=== PATIENT | male | born 1965 | race African-American/Black ===

== ENCOUNTER 2016-07-26 10:57 | Inpatient (IN) | payer OTHER ==
[2016-07-26 11:54] VITALS: BMI 21.9
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
[2016-07-26] MEDS ORDERED: P-EPHED 60MG/TRIPROLIDI 2.5MG TABLET PO PRN (14:06)
[2016-07-26] MEDS ORDERED: chlordiazePOXIDE HCL 25 MG CAPSULE PO PRN (14:06)
[2016-07-26] MEDS ORDERED: guaiFENesin/D-METHORPHAN HB 10 ML UNIT-DOSE CUPS PO PRN (14:06)
[2016-07-26] MEDS ORDERED: MAGNESIUM HYDROX 2400MG/30ML ORAL SUSPENSION 30 ML CUP PO PRN (14:06)
[2016-07-26] MEDS ORDERED: IBUPROFEN 400 MG TABLET (FP) PO PRN (14:06)
[2016-07-26] MEDS ORDERED: MENTHOL/PHENOL 1 EACH UD MM PRN (14:06)
[2016-07-26] MEDS ORDERED: MAGNESIUM CITRATE 300 ML BOTTLE PO PRN (14:06)
[2016-07-26] MEDS ORDERED: LOPERAMIDE HCL 2 MG CAPSULE PO PRN (14:06)
[2016-07-26] MEDS ORDERED: ACETAMINOPHEN 325 MG TABLET (FP) PO PRN (14:06)
[2016-07-26] MEDS ORDERED: MAG HYDROX/AL HYDROX/SIMETH 30 ML UNIT-DOSE CUP PO PRN (14:06)
[2016-07-26] MEDS ORDERED: diphenhydrAMINE HCL 50 MG CAPSULE PO PRN (14:06)
[2016-07-26] MEDS ORDERED: hydrOXYzine PAMOATE 25 MG CAPSULE (FP) PO PRN (14:12)
[2016-07-26] MEDS ORDERED: chlordiazePOXIDE HCL 25 MG CAPSULE PO ONE (14:13)
[2016-07-26] MEDS ORDERED: ALBUTEROL SO4 6.7 GM HFA INHALER IH PRN (14:14)
--- NOTE | 2016-07-26 16:13 | CONSULT ---
[facility] Psychiatric Consult - Data Date of interview: 07/26/16 Admission source: [facility] Identifying data: This is 51 years old male with history of Bipolar disorder intoxicated with: Alcohol, Crack and Nicotine Substance Abuse History: - Smoking Cessation. Smoking history: Current every day smoker. Have you smoked in the past 12 months: Yes. Aproximately how many cigarettes per day: 8. Cigars Per Day: 0. Hx Chewing Tobacco Use: No. Initiated information on smoking cessation: Yes. 'Breaking Loose' booklet given : 07/26/16. - Substance & Tx. History. Hx Alcohol Use: Yes. Hx Substance Use : Yes. Substance Use Type: Alcohol, Cocaine. - Substances Abused. Alcohol. Route: Oral. Frequency: Daily. Amount used: 20 BEERS. Age of first use: 10. Date of Last Use: 07/25/16. Crack. Route: Smoking. Frequency: Daily. Amount used: $300. Age of first use: 25. Date of Last Use: 07/25/16 Medical History: Asthma, PPD+ Hisotyr, GERD, Anemia history Psychiatric History: Patient reports to carry Bipolar disorder, reports taking prior to admission: Seroquel 100mg po qhs. Depakote 250mg po bid Physical/Sexual Abuse/Trauma History: Denies Additional Comment: Seroquel 100mg po qhs. Depakote 250mg po bid Mental Status Exam - Mental Status Exam Alert and Oriented to: Person Cognitive Function: Fair Patient Appearance: Unkempt Mood: Sad Affect: Flat Patient Behavior: Sedated Speech Pattern: Delayed Voice Loudness: Moderately Soft/Quiet Thought Process: Circumstantial Thought Disorder: Being Controlled Hallucinations: Denies Suicidal Ideation: Denies Homicidal Ideation: Denies Insight/Judgement: Fair Sleep: Difficulty falling asleep Appetite: Weight loss Muscle strength/Tone: Mild Hypotonicity Gait/Station: Shuffling Additional Comments: Seroquel 100mg po qhs. Depakote 250mg po bid Psychiatric Findings - Problem List ([place] 1, 2,3) (1) Alcohol dependence with uncomplicated withdrawal Current Visit: No Status: Acute (2) Cocaine dependence Current Visit: No Status: Acute (3) Nicotine dependence Current Visit: No Status: Acute Qualifiers: Nicotine product type: cigarettes Substance use status: uncomplicated Qualified Code(s): F17.210 - Nicotine dependence, cigarettes, uncomplicated (4) Substance induced mood disorder Current Visit: No Status: Acute (5) Anxiety disorder Current Visit: No Status: Chronic Qualifiers: Anxiety disorder type: unspecified anxiety disorder Qualified Code(s ): F41.9 - Anxiety disorder, unspecified (6) Bipolar disorder Current Visit: No Status: Chronic Comment: Historical diagnosis. - Initial Treatment Plan Initial Treatment Plan: Seroquel 100mg po qhs. Depakote 250mg po bid
[2016-07-26 17:28] LABS: URINE APPEARANCE CLEAR; URINE BILIRUBIN NEGATIVE (NEGATIVE); URINE BLOOD NEGATIVE (NEGATIVE); URINE COLOR LTYELLOW; URINE GLUCOSE (UA) NEGATIVE (NEGATIVE); URINE KETONE NEGATIVE (NEGATIVE); URINE LEUK ESTERASE 1+ (NEGATIVE); URINE NITRITE NEGATIVE (NEGATIVE); URINE PROTEIN NEGATIVE (NEGATIVE); URINE UROBILINOGEN NEGATIVE E.U./dl (0.2-1.0)
[2016-07-26] MEDS: chlordiazePOXIDE HCL 25 MG CAPSULE PO SCH ×2 (17:37→22:29)
[2016-07-26 17:44] LABS: URINE BACTERIA FEW /hpf (NONE SEEN); URINE MUCUS RARE; URINE RBC <1 /hpf (0-3); URINE WBC 19 /hpf (3-5)
[2016-07-26] MEDS: DIVALPROEX SODIUM 250 MG TABLET E.C. (FP) PO SCH (22:29)
[2016-07-26] MEDS: THIAMINE HCL 100 MG TABLET (FP) PO SCH (22:29)
[2016-07-26] MEDS: QUEtiapine FUMARATE 100 MG TABLET (FP) PO SCH (22:29)
[2016-07-27] MEDS: chlordiazePOXIDE HCL 25 MG CAPSULE PO SCH ×4 (06:00→22:48)
[2016-07-27] MEDS ORDERED: ASPIRIN 81 MG CHEWABLE TABLETS PO SCH (10:00)
[2016-07-27] MEDS ORDERED: PRENATAL VITAMINS W/ FOLIC ACID TABLET (FP) PO SCH (10:00)
[2016-07-27 10:39] LABS: ALBUMIN 3.8 g/dl (3.4-5.0); ALK PHOS 70 U/L (45-117); ANION GAP 6 (8-16); BILIRUBIN,TOTAL 0.4 mg/dL (0.2-1.0); CALCIUM 8.7 mg/dL (8.5-10.1); CO2 30 mmol/L (21-32); CREATININE 0.9 mg/dL (0.7-1.3); GLUCOSE,RANDOM 59 mg/dL (74-106); SGOT/AST 48 U/L (15-37); SGPT/ALT 34 U/L (12-78); TOT PROT 7.5 g/dl (6.4-8.2)
[2016-07-27] MEDS: DIVALPROEX SODIUM 250 MG TABLET E.C. (FP) PO SCH ×2 (10:58→22:48)
[2016-07-27 11:08] LABS: MCH 23.2 pg (25.7-33.7); MCHC 31.5 g/dl (32.0-35.9); MEAN CELL VOLUME 73.5 fl (80-96); MEAN PLT VOLUME 10.2 fl (7.5-11.1); PLATELET COUNT 179 K/MM3 (134-434); RDW 15.4 % (11.9-15.9)
--- NOTE | 2016-07-27 15:18 | PN ---
[facility] CIWA - CIWA Score Nausea/Vomitin-No Nausea/No Vomiting Muscle Tremors: 3 Anxiety: 4-Mod. Anxious/Guarded Agitation: 4-Moderately Restless Paroxysmal Sweats: 3 Orientation: 0-Oriented Tacttile Disturbances: 0-None Auditory Disturbances: 0-None Visual Disturbances: 0-None Headache: 0-None Present CIWA-Ar Total Score: 14 BHS Progress Note (SOAP) Subjective: SWEATING,INTERRUPTED SLEEP,ANXIETY,TREMORS,RESTLESS. Objective: 07/27/16 15:13 Vital Signs - 8 hr 07/27/16 09:45 Temperature 97.0 F L Pulse Rate 95 H Respiratory 20 Rate Blood Pressure 104/76 Laboratory Tests 07/26/16 07/27/16 07/27/16 15:00 06:00 06:00 WBC 5.0 RBC 5.03 Hgb 11.6 L Hct 37.0 MCV 73.5 L MCHC 31.5 L RDW 15.4 Plt Count 179 MPV 10.2 Sodium 143 Potassium 4.2 Chloride 107 Carbon Dioxide 30 Anion Gap 6 L BUN 15 D Creatinine 0.9 Creat Clearance w eGFR > 60 Random Glucose 59 L D Calcium 8.7 Total Bilirubin 0.4 D AST 48 H D ALT 34 D Alkaline Phosphatase 70 D Total Protein 7.5 D Albumin 3.8 D Urine Color Ltyellow Urine Appearance Clear Urine pH 7.0 D Ur Specific [place] 1.020 Urine Protein Negative Urine Glucose (UA) Negative Urine Ketones Negative Urine Blood Negative Urine Nitrite Negative Urine Bilirubin Negative Urine Urobilinogen Negative Ur Leukocyte Esterase 1+ H Urine RBC <1 Urine WBC 19 Ur Epithelial Cells Rare Urine Bacteria Few Urine Mucus Rare Valproic Acid RPR Titer T.pallidum Ab (MHA) 07/27/16 07/27/16 06:00 07:00 WBC RBC Hgb Hct MCV MCHC RDW Plt Count MPV Sodium Potassium Chloride Carbon Dioxide Anion Gap BUN Creatinine Creat Clearance w eGFR Random Glucose Calcium Total Bilirubin AST ALT Alkaline Phosphatase Total Protein Albumin Urine Color Urine Appearance Urine pH Ur Specific [place] Urine Protein Urine Glucose (UA) Urine Ketones Urine Blood Urine Nitrite Urine Bilirubin Urine Urobilinogen Ur Leukocyte Esterase Urine RBC Urine WBC Ur Epithelial Cells Urine Bacteria Urine Mucus Valproic Acid 3.266 L RPR Titer Reactive 1:1 H T.pallidum Ab (MHA) Previously reactive LABS NOTED Assessment: 07/27/16 15:15 WITHDRAWAL SX. Plan: CONTINUE DETOX
[2016-07-27 22:23] VITALS: BP 114/72; PULSE 83; TEMP 98.5
[2016-07-27] MEDS: THIAMINE HCL 100 MG TABLET (FP) PO SCH (22:48)
[2016-07-27] MEDS: QUEtiapine FUMARATE 100 MG TABLET (FP) PO SCH (22:48)
--- NOTE | 2016-07-27 22:57 | DS ---
[id number] Present History: Alcohol Dependence Additional Comments: received nurse call patient wants to leave the unit observed patient pacing appears anxious in room, alert oriented x 3, steady gait, speech clearly, patient states that he wants to leave the facility "I have my own medications" patient insists to "go home" without apparent reason. strong recommend follow up with community self help groups Pertinent Past History: asthma bipolar ii gerd nicotine - Physical Exam Results Vital Signs: Vital Signs Temperature 98.5 F 07/27/16 22:23 Pulse Rate 83 07/27/16 22:23 Respiratory Rate 18 07/27/16 22:23 Blood Pressure 114/72 07/27/16 22:23 O2 Sat by Pulse Oximetry (%) Pertinent Admission Physical Exam Findings: withdrawal sx Laboratory Last Values WBC 5.0 K/mm3 (4.0-10.0) 07/27/16 06:00 RBC 5.03 M/mm3 (4.00-5.60) 07/27/16 06:00 Hgb 11.6 GM/dL (11.7-16.9) L 07/27/16 06:00 Hct 37.0 % (35.4-49) 07/27/16 06:00 MCV 73.5 fl (80-96) L 07/27/16 06:00 MCHC 31.5 g/dl (32.0-35.9) L 07/27/16 06:00 RDW 15.4 % (11.9-15.9) 07/27/16 06:00 Plt Count 179 K/MM3 (134-434) 07/27/16 06:00 MPV 10.2 fl (7.5-11.1) 07/27/16 06:00 Sodium 143 mmol/L (136-145) 07/27/16 06:00 Potassium 4.2 mmol/L (3.5-5.1) 07/27/16 06:00 Chloride 107 mmol/L (98-107) 07/27/16 06:00 Carbon Dioxide 30 mmol/L (21-32) 07/27/16 06:00 Anion Gap 6 (8-16) L 07/27/16 06:00 BUN 15 mg/dL (7-18) D 07/27/16 06:00 Creatinine 0.9 mg/dL (0.7-1.3) 07/27/16 06:00 Creat Clearance w eGFR > 60 (>60) 07/27/16 06:00 Random Glucose 59 mg/dL (74-106) L D 07/27/16 06:00 Calcium 8.7 mg/dL (8.5-10.1) 07/27/16 06:00 Total Bilirubin 0.4 mg/dL (0.2-1.0) D 07/27/16 06:00 AST 48 U/L (15-37) H D 07/27/16 06:00 ALT 34 U/L (12-78) D 07/27/16 06:00 Alkaline Phosphatase 70 U/L (45-117) D 07/27/16 06:00 Total Protein 7.5 g/dl (6.4-8.2) D 07/27/16 06:00 Albumin 3.8 g/dl (3.4-5.0) D 07/27/16 06:00 Urine Color Ltyellow 07/26/16 15:00 Urine Appearance Clear 07/26/16 15:00 Urine pH 7.0 (5.0-8.0) D 07/26/16 15:00 Ur Specific [place] 1.020 (1.001-1.035) 07/26/16 15:00 Urine Protein Negative (NEGATIVE) 07/26/16 15:00 Urine Glucose (UA) Negative (NEGATIVE) 07/26/16 15:00 Urine Ketones Negative (NEGATIVE) 07/26/16 15:00 Urine Blood Negative (NEGATIVE) 07/26/16 15:00 Urine Nitrite Negative (NEGATIVE) 07/26/16 15:00 Urine Bilirubin Negative (NEGATIVE) 07/26/16 15:00 Urine Urobilinogen Negative E.U./dl (0.2-1.0) 07/26/16 15:00 Ur Leukocyte Esterase 1+ (NEGATIVE) H 07/26/16 15:00 Urine RBC <1 /hpf (0-3) 07/26/16 15:00 Urine WBC 19 /hpf (3-5) 07/26/16 15:00 Ur Epithelial Cells Rare /hpf (FEW) 07/26/16 15:00 Urine Bacteria Few /hpf (NONE SEEN) 07/26/16 15:00 Urine Mucus Rare 07/26/16 15:00 Valproic Acid 3.266 ug/ml (50-100) L 07/27/16 07:00 RPR Titer Reactive 1:1 (NONREACTIVE) H 07/27/16 06:00 T.pallidum Ab (MHA) Previously reactive (NONREACTIVE) 07/27/16 06:00 lab noted - Treatment Hospital Course: Detox Protocol Followed, Responded well - Medication Discharge Medications: Ambulatory Orders Albuterol Sulfate Inhaler - [Ventolin Hfa Inhaler -] 2 inh PO Q4H PRN 05/17/16 Aspirin [ASA -] 81 mg PO DAILY 05/17/16 Divalproex [Depakote -] 250 mg PO BID #60 tablet.ec 05/21/16 Quetiapine Fumarate [Seroquel] 100 tab PO HS #30 tablet 05/21/16 Trazodone HCl 50 mg PO HS #30 tablet 05/21/16 Divalproex [Depakote -] 250 mg PO BID #60 tablet.ec 07/26/16 Quetiapine Fumarate [Seroquel] 100 mg PO HS #30 tablet 07/26/16 - Diagnosis (1) Asthma Status: Chronic Qualifiers: Asthma severity: mild persistent Asthma complication type: uncomplicated Qualified Code(s): J45.30 - Mild persistent asthma, uncomplicated (2) Positive PPD Status: Resolved (3) Alcohol dependence with uncomplicated withdrawal Status: Acute (4) Nicotine dependence Status: Acute Qualifiers: Nicotine product type: cigarettes Substance use status: uncomplicated Qualified Code(s): F17.210 - Nicotine dependence, cigarettes, uncomplicated (5) Acid reflux Status: Chronic Qualifiers: Esophagitis presence: without esophagitis Qualified Code(s): K21.9 - Gastro-esophageal reflux disease without esophagitis (6) Bipolar II disorder Status: Suspected - AMA Did Patient Leave Against Medical Advice: Yes
[2016-07-28] MEDS ORDERED: chlordiazePOXIDE 5 MG CAPSULE PO SCH (17:00)
[2016-07-29] MEDS ORDERED: chlordiazePOXIDE HCL 10 MG CAPSULE PO SCH (17:00)
--- NOTE | 2016-08-01 09:39 | EKG ---
Test Reason : Blood Pressure : / mmHG Vent. Rate : 061 BPM Atrial Rate : 061 BPM P-R Int : 114 ms QRS Dur : 100 ms QT Int : 444 ms P-R-T Axes : 039 045 045 degrees QTc Int : 446 ms NORMAL SINUS RHYTHM NORMAL ECG NO PREVIOUS ECGS AVAILABLE Confirmed by JAMARI PATEL, ROBBI ([id number]) on 08/01/2016 9:39:23 AM Referred By: Confirmed By:ROBBI KAUFFMAN MD
== END 2016-07-27 23:00 | disposition left against medical advice (07) | DRG 770 ==
LOC: YASAS 10:57 → Y3N 14:25
PROVIDERS: ADMIT Internal Medicine; ATTEND Internal Medicine
PROC: HZ2ZZZZ Detoxification Services for Substance Abuse Treatment (ICD-10-PCS; principal; 2016-07-26)
DX: F10.230 Alcohol dependence with withdrawal, uncomplicated (principal); F17.210 Nicotine dependence, cigarettes, uncomplicated; F31.81 Bipolar II disorder; F19.24 Other psychoactive substance dependence with psychoactive substance-induced mood disorder; F41.9 Anxiety disorder, unspecified; J45.30 Mild persistent asthma, uncomplicated; R76.11 Nonspecific reaction to tuberculin skin test without active tuberculosis; D64.9 Anemia, unspecified; K21.9 Gastro-esophageal reflux disease without esophagitis; Z86.79 Personal history of other diseases of the circulatory system; Z87.438 Personal history of other diseases of male genital organs
CPT/HCPCS: 36415; 80053; 80164; 81003; 81015; 85027; 86593; 86780; 93005; 93010

== ENCOUNTER 2017-07-08 08:47 | Inpatient (IN) | payer OTHER ==
[2017-07-08 09:31] VITALS: BMI 22.3
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
[2017-07-08] MEDS ORDERED: MAG HYDROX/AL HYDROX/SIMETH 30 ML UNIT-DOSE CUP PO PRN (13:11)
[2017-07-08] MEDS ORDERED: MENTHOL/PHENOL 1 EACH UD MM PRN (13:11)
[2017-07-08] MEDS ORDERED: IBUPROFEN 400 MG TABLET (FP) PO PRN (13:11)
[2017-07-08] MEDS ORDERED: chlordiazePOXIDE HCL 25 MG CAPSULE PO PRN (13:11)
[2017-07-08] MEDS ORDERED: ACETAMINOPHEN 325 MG TABLET (FP) PO PRN (13:11)
[2017-07-08] MEDS ORDERED: LOPERAMIDE HCL 2 MG CAPSULE PO PRN (13:11)
[2017-07-08] MEDS ORDERED: MAGNESIUM CITRATE 300 ML BOTTLE PO PRN (13:11)
[2017-07-08] MEDS ORDERED: P-EPHED 60MG/TRIPROLIDI 2.5MG TABLET PO PRN (13:11)
[2017-07-08] MEDS ORDERED: guaiFENesin/D-METHORPHAN HB 10 ML UNIT-DOSE CUPS PO PRN (13:11)
[2017-07-08] MEDS ORDERED: NICOTINE POLACRILEX 4 MG GUM BUC PRN (13:11)
[2017-07-08] MEDS ORDERED: hydrOXYzine PAMOATE 50 MG CAPSULE (FP) PO PRN (13:11)
[2017-07-08] MEDS ORDERED: MAGNESIUM HYDROX 2400MG/30ML ORAL SUSPENSION 30 ML CUP PO PRN (13:11)
[2017-07-08] MEDS ORDERED: ALBUTEROL SO4 18 GM HFA INHALER IH PRN (13:13)
[2017-07-08] MEDS ORDERED: chlordiazePOXIDE HCL 25 MG CAPSULE PO ONE (13:46)
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
[2017-07-08] MEDS: chlordiazePOXIDE HCL 25 MG CAPSULE PO SCH ×2 (17:01→22:14)
[2017-07-08] MEDS: THIAMINE HCL 100 MG TABLET (FP) PO SCH (22:14)
[2017-07-08] MEDS: traZODone HCL 50 MG TABLET (FP) PO SCH (22:14)
[2017-07-08] MEDS: DIVALPROEX SODIUM 500 MG TABLET E.C. PO SCH (22:14)
[2017-07-08 23:25] LABS: URINE APPEARANCE CLEAR; URINE BILIRUBIN NEGATIVE (NEGATIVE); URINE BLOOD NEGATIVE (NEGATIVE); URINE COLOR YELLOW; URINE GLUCOSE (UA) NEGATIVE (NEGATIVE); URINE KETONE NEGATIVE (NEGATIVE); URINE LEUK ESTERASE NEGATIVE (NEGATIVE); URINE NITRITE NEGATIVE (NEGATIVE); URINE PROTEIN NEGATIVE (NEGATIVE); URINE UROBILINOGEN NEGATIVE mg/dL (0.2-1.0)
--- NOTE | 2017-07-09 01:55 | EKG ---
Test Reason : Blood Pressure : / mmHG Vent. Rate : 056 BPM Atrial Rate : 056 BPM P-R Int : 124 ms QRS Dur : 098 ms QT Int : 426 ms P-R-T Axes : 063 040 044 degrees QTc Int : 411 ms SINUS BRADYCARDIA OTHERWISE NORMAL ECG WHEN COMPARED WITH ECG OF 26-JUL-2016 15:22, NO SIGNIFICANT CHANGE WAS FOUND Confirmed by SUDHEER KELLOGG MD ([id number]) on 07/09/2017 1:54:52 AM Referred By: Confirmed By:SUDHEER KELLOGG MD
[2017-07-09] MEDS: chlordiazePOXIDE HCL 25 MG CAPSULE PO SCH ×4 (06:42→22:05)
[2017-07-09 10:09] LABS: MCH 22.7 pg (25.7-33.7); MEAN CELL VOLUME 73.3 fl (80-96); MEAN PLT VOLUME 9.8 fl (7.5-11.1); PLATELET COUNT 202 K/MM3 (134-434); RDW 14.8 % (11.9-15.9); WHITE BLOOD COUNT 4.8 K/mm3 (4.0-10.0)
[2017-07-09 10:38] LABS: URINE LEUK ESTERASE Negative (NEGATIVE)
[2017-07-09] MEDS: NICOTINE 14 MG/24 HOURS TOPICAL PATCH TD SCH (10:48)
[2017-07-09] MEDS: DIVALPROEX SODIUM 500 MG TABLET E.C. PO SCH ×2 (10:48→22:05)
[2017-07-09] MEDS: ASPIRIN 81 MG CHEWABLE TABLETS PO SCH (10:48)
[2017-07-09] MEDS: PRENATAL VITAMINS W/ FOLIC ACID TABLET (FP) PO SCH (10:48)
[2017-07-09 10:56] LABS: ALBUMIN 3.3 g/dl (3.4-5.0); ALK PHOS 71 U/L (45-117); ANION GAP 8 (8-16); BILIRUBIN,TOTAL 0.4 mg/dL (0.2-1.0); CALCIUM 8.4 mg/dL (8.5-10.1); CO2 27 mmol/L (21-32); GLUCOSE,RANDOM 94 mg/dL (74-106); SGOT/AST 48 U/L (15-37); SGPT/ALT 36 U/L (12-78)
--- NOTE | 2017-07-09 12:16 | PN ---
[facility] CIWA - CIWA Score Nausea/Vomitin-No Nausea/No Vomiting Muscle Tremors: 4-Moderate,w/Arms Extend Anxiety: 4-Mod. Anxious/Guarded Agitation: 4-Moderately Restless Paroxysmal Sweats: 1-Minimal Palms Moist Orientation: 0-Oriented Tacttile Disturbances: 3-Moderate Itch/Numb/Burn Auditory Disturbances: 0-None Visual Disturbances: 0-None Headache: 0-None Present CIWA-Ar Total Score: 16 S Progress Note (SOAP) Subjective: PT IN BED COMFORTABLE. PT REPORTEDLY REFUSED LIBRIUM AT 10 AM MEDS PER NURSE ERON. ALERT O X 3. Objective: 07/09/17 12:15 Vital Signs Temperature 97.0 F L 07/09/17 09:03 Pulse Rate 67 07/09/17 09:03 Respiratory Rate 18 07/09/17 09:03 Blood Pressure 104/70 07/09/17 09:03 O2 Sat by Pulse Oximetry (%) Laboratory Last Values WBC 4.8 K/mm3 (4.0-10.0) 07/09/17 05:50 RBC 5.24 M/mm3 (4.00-5.60) 07/09/17 05:50 Hgb 11.9 GM/dL (11.7-16.9) 07/09/17 05:50 Hct 38.4 % (35.4-49) 07/09/17 05:50 MCV 73.3 fl (80-96) L 07/09/17 05:50 MCH 22.7 pg (25.7-33.7) L 07/09/17 05:50 MCHC 31.0 g/dl (32.0-35.9) L 07/09/17 05:50 RDW 14.8 % (11.9-15.9) 07/09/17 05:50 Plt Count 202 K/MM3 (134-434) 07/09/17 05:50 MPV 9.8 fl (7.5-11.1) 07/09/17 05:50 Sodium 141 mmol/L (136-145) 07/09/17 05:50 Potassium 4.1 mmol/L (3.5-5.1) 07/09/17 05:50 Chloride 106 mmol/L (98-107) 07/09/17 05:50 Carbon Dioxide 27 mmol/L (21-32) 07/09/17 05:50 Anion Gap 8 (8-16) 07/09/17 05:50 BUN 9 mg/dL (7-18) D 07/09/17 05:50 Creatinine 1.0 mg/dL (0.7-1.3) 07/09/17 05:50 Creat Clearance w eGFR > 60 (>60) 07/09/17 05:50 Random Glucose 94 mg/dL (74-106) D 07/09/17 05:50 Calcium 8.4 mg/dL (8.5-10.1) L 07/09/17 05:50 Total Bilirubin 0.4 mg/dL (0.2-1.0) 07/09/17 05:50 AST 48 U/L (15-37) H 07/09/17 05:50 ALT 36 U/L (12-78) 07/09/17 05:50 Alkaline Phosphatase 71 U/L (45-117) 07/09/17 05:50 Total Protein 7.0 g/dl (6.4-8.2) 07/09/17 05:50 Albumin 3.3 g/dl (3.4-5.0) L 07/09/17 05:50 Urine Color Yellow 07/08/17 23:10 Urine Appearance Clear 07/08/17 23:10 Urine pH 6.0 (5.0-8.0) 07/08/17 23:10 Ur Specific [place] 1.017 (1.001-1.035) 07/08/17 23:10 Urine Protein Negative (NEGATIVE) 07/08/17 23:10 Urine Glucose (UA) Negative (NEGATIVE) 07/08/17 23:10 Urine Ketones Negative (NEGATIVE) 07/08/17 23:10 Urine Blood Negative (NEGATIVE) 07/08/17 23:10 Urine Nitrite Negative (NEGATIVE) 07/08/17 23:10 Urine Bilirubin Negative (NEGATIVE) 07/08/17 23:10 Urine Urobilinogen Negative mg/dL (0.2-1.0) 07/08/17 23:10 Ur Leukocyte Esterase Negative (NEGATIVE) 07/08/17 23:10 Valproic Acid < 3.000 ug/ml (50-100) L 07/09/17 06:00 Assessment: 07/09/17 12:16 WITHDRAWAL SX Plan: CONTINUE DETOX MONITOR PT
[2017-07-09] MEDS: traZODone HCL 50 MG TABLET (FP) PO SCH (22:05)
[2017-07-09] MEDS: THIAMINE HCL 100 MG TABLET (FP) PO SCH (22:05)
[2017-07-10] MEDS: chlordiazePOXIDE HCL 25 MG CAPSULE PO SCH ×2 (06:18→10:15)
[2017-07-10] MEDS: NICOTINE 14 MG/24 HOURS TOPICAL PATCH TD SCH (10:14)
[2017-07-10] MEDS: ASPIRIN 81 MG CHEWABLE TABLETS PO SCH (10:14)
[2017-07-10] MEDS: DIVALPROEX SODIUM 500 MG TABLET E.C. PO SCH ×2 (10:14→22:26)
[2017-07-10] MEDS: PRENATAL VITAMINS W/ FOLIC ACID TABLET (FP) PO SCH (10:14)
--- NOTE | 2017-07-10 11:06 | PN ---
[facility] CIWA - CIWA Score Nausea/Vomitin-No Nausea/No Vomiting Muscle Tremors: 2 Anxiety: 4-Mod. Anxious/Guarded Agitation: 4-Moderately Restless Paroxysmal Sweats: 1-Minimal Palms Moist Orientation: 0-Oriented Tacttile Disturbances: 3-Moderate Itch/Numb/Burn Auditory Disturbances: 0-None Visual Disturbances: 0-None Headache: 0-None Present CIWA-Ar Total Score: 14 S Progress Note (SOAP) Subjective: ANXIETY,SWEATS,INTERMITTENT SLEEP Objective: 07/10/17 11:07 Vital Signs - 24 hr 07/09/17 07/09/17 07/10/17 17:15 22:06 00:30 Temperature 97.2 F L 97.4 F L Pulse Rate 81 69 Respiratory 18 18 18 Rate Blood Pressure 103/63 107/63 07/10/17 07/10/17 05:58 13:06 Temperature 97 F L 96.1 F L Pulse Rate 65 69 Respiratory 18 18 Rate Blood Pressure 98/61 105/70 Laboratory Last Values WBC 4.8 K/mm3 (4.0-10.0) 07/09/17 05:50 RBC 5.24 M/mm3 (4.00-5.60) 07/09/17 05:50 Hgb 11.9 GM/dL (11.7-16.9) 07/09/17 05:50 Hct 38.4 % (35.4-49) 07/09/17 05:50 MCV 73.3 fl (80-96) L 07/09/17 05:50 MCH 22.7 pg (25.7-33.7) L 07/09/17 05:50 MCHC 31.0 g/dl (32.0-35.9) L 07/09/17 05:50 RDW 14.8 % (11.9-15.9) 07/09/17 05:50 Plt Count 202 K/MM3 (134-434) 07/09/17 05:50 MPV 9.8 fl (7.5-11.1) 07/09/17 05:50 Sodium 141 mmol/L (136-145) 07/09/17 05:50 Potassium 4.1 mmol/L (3.5-5.1) 07/09/17 05:50 Chloride 106 mmol/L (98-107) 07/09/17 05:50 Carbon Dioxide 27 mmol/L (21-32) 07/09/17 05:50 Anion Gap 8 (8-16) 07/09/17 05:50 BUN 9 mg/dL (7-18) D 07/09/17 05:50 Creatinine 1.0 mg/dL (0.7-1.3) 07/09/17 05:50 Creat Clearance w eGFR > 60 (>60) 07/09/17 05:50 Random Glucose 94 mg/dL (74-106) D 07/09/17 05:50 Calcium 8.4 mg/dL (8.5-10.1) L 07/09/17 05:50 Total Bilirubin 0.4 mg/dL (0.2-1.0) 07/09/17 05:50 AST 48 U/L (15-37) H 07/09/17 05:50 ALT 36 U/L (12-78) 07/09/17 05:50 Alkaline Phosphatase 71 U/L (45-117) 07/09/17 05:50 Total Protein 7.0 g/dl (6.4-8.2) 07/09/17 05:50 Albumin 3.3 g/dl (3.4-5.0) L 07/09/17 05:50 Urine Color Yellow 07/08/17 23:10 Urine Appearance Clear 07/08/17 23:10 Urine pH 6.0 (5.0-8.0) 07/08/17 23:10 Ur Specific [place] 1.017 (1.001-1.035) 07/08/17 23:10 Urine Protein Negative (NEGATIVE) 07/08/17 23:10 Urine Glucose (UA) Negative (NEGATIVE) 07/08/17 23:10 Urine Ketones Negative (NEGATIVE) 07/08/17 23:10 Urine Blood Negative (NEGATIVE) 07/08/17 23:10 Urine Nitrite Negative (NEGATIVE) 07/08/17 23:10 Urine Bilirubin Negative (NEGATIVE) 07/08/17 23:10 Urine Urobilinogen Negative mg/dL (0.2-1.0) 07/08/17 23:10 Ur Leukocyte Esterase Negative (NEGATIVE) 07/08/17 23:10 Valproic Acid < 3.000 ug/ml (50-100) L 07/09/17 06:00 RPR Titer Reactive 1:1 (NONREACTIVE) H 07/09/17 05:50 T.pallidum Ab (MHA) Previously reactive (NONREACTIVE) 07/09/17 05:50 07/10/17 14:31 Assessment: 07/10/17 11:08 WITHDRAWAL SX Plan: CONTINUE DETOX
[2017-07-10] MEDS: chlordiazePOXIDE 5 MG CAPSULE PO SCH ×2 (17:38→22:25)
[2017-07-10] MEDS: THIAMINE HCL 100 MG TABLET (FP) PO SCH (22:25)
[2017-07-10] MEDS: traZODone HCL 50 MG TABLET (FP) PO SCH (22:26)
[2017-07-11] MEDS: chlordiazePOXIDE 5 MG CAPSULE PO SCH ×2 (06:41→10:48)
[2017-07-11] MEDS: NICOTINE 14 MG/24 HOURS TOPICAL PATCH TD SCH (10:46)
[2017-07-11] MEDS: DIVALPROEX SODIUM 500 MG TABLET E.C. PO SCH (10:46)
[2017-07-11] MEDS: ASPIRIN 81 MG CHEWABLE TABLETS PO SCH (10:46)
[2017-07-11] MEDS: PRENATAL VITAMINS W/ FOLIC ACID TABLET (FP) PO SCH (10:46)
--- NOTE | 2017-07-11 15:18 | PN ---
[facility] Progress Note (SOAP) Subjective: Anxious, sweating, reports oversleeping due to librium Objective: 07/11/17 15:14 Last Vital Signs Temp Pulse Resp BP Pulse Ox 97.2 F L 78 18 97/59 07/11/17 10:56 07/11/17 10:56 07/11/17 10:56 07/11/17 10:56 B/P noted: hypotension Laboratory Tests 07/08/17 07/09/17 07/09/17 23:10 05:50 05:50 WBC 4.8 RBC 5.24 Hgb 11.9 Hct 38.4 MCV 73.3 L MCH 22.7 L MCHC 31.0 L RDW 14.8 Plt Count 202 MPV 9.8 Sodium 141 Potassium 4.1 Chloride 106 Carbon Dioxide 27 Anion Gap 8 BUN 9 D Creatinine 1.0 Creat Clearance w eGFR > 60 Random Glucose 94 D Calcium 8.4 L Total Bilirubin 0.4 AST 48 H ALT 36 Alkaline Phosphatase 71 Total Protein 7.0 Albumin 3.3 L Urine Color Yellow Urine Appearance Clear Urine pH 6.0 Ur Specific [place] 1.017 Urine Protein Negative Urine Glucose (UA) Negative Urine Ketones Negative Urine Blood Negative Urine Nitrite Negative Urine Bilirubin Negative Urine Urobilinogen Negative Ur Leukocyte Esterase Negative Valproic Acid RPR Titer T.pallidum Ab (MHA) 07/09/17 07/09/17 05:50 06:00 WBC RBC Hgb Hct MCV MCH MCHC RDW Plt Count MPV Sodium Potassium Chloride Carbon Dioxide Anion Gap BUN Creatinine Creat Clearance w eGFR Random Glucose Calcium Total Bilirubin AST ALT Alkaline Phosphatase Total Protein Albumin Urine Color Urine Appearance Urine pH Ur Specific [place] Urine Protein Urine Glucose (UA) Urine Ketones Urine Blood Urine Nitrite Urine Bilirubin Urine Urobilinogen Ur Leukocyte Esterase Valproic Acid < 3.000 L RPR Titer Reactive 1:1 H T.pallidum Ab (MHA) Previously reactive Labs noted Assessment: 07/11/17 15:15 Withdrawal symptoms Noted with hypotension Plan: Continue detox Hypotension: encouraged to drink lots of water for hydration, continue to monitor
[2017-07-11 17:00] VITALS: BP 98/50; PULSE 61; TEMP 98.7
[2017-07-11] MEDS ORDERED: chlordiazePOXIDE HCL 10 MG CAPSULE PO SCH (17:00)
--- NOTE | 2017-07-11 23:23 | DS ---
[facility] Detox Discharge Summary Admission Date: 07/08/17 Discharge Date: 07/11/17 - History Present History: Alcohol Dependence Additional Comments: PATIENT INSISTS TO LEAVE THE FACILITY REFUSES TO FACT TO FACE WITH THE PROVIDER Pertinent Past History: ASTHMA - Physical Exam Results Vital Signs: Vital Signs Temperature 98.7 F 07/11/17 17:00 Pulse Rate 61 07/11/17 17:00 Respiratory Rate 18 07/11/17 17:00 Blood Pressure 98/50 07/11/17 17:00 O2 Sat by Pulse Oximetry (%) Pertinent Admission Physical Exam Findings: WITHDRAWAL SX Vital Signs Temperature 98.7 F 07/11/17 17:00 Pulse Rate 61 07/11/17 17:00 Respiratory Rate 18 07/11/17 17:00 Blood Pressure 98/50 07/11/17 17:00 O2 Sat by Pulse Oximetry (%) Laboratory Last Values WBC 4.8 K/mm3 (4.0-10.0) 07/09/17 05:50 RBC 5.24 M/mm3 (4.00-5.60) 07/09/17 05:50 Hgb 11.9 GM/dL (11.7-16.9) 07/09/17 05:50 Hct 38.4 % (35.4-49) 07/09/17 05:50 MCV 73.3 fl (80-96) L 07/09/17 05:50 MCH 22.7 pg (25.7-33.7) L 07/09/17 05:50 MCHC 31.0 g/dl (32.0-35.9) L 07/09/17 05:50 RDW 14.8 % (11.9-15.9) 07/09/17 05:50 Plt Count 202 K/MM3 (134-434) 07/09/17 05:50 MPV 9.8 fl (7.5-11.1) 07/09/17 05:50 Sodium 141 mmol/L (136-145) 07/09/17 05:50 Potassium 4.1 mmol/L (3.5-5.1) 07/09/17 05:50 Chloride 106 mmol/L (98-107) 07/09/17 05:50 Carbon Dioxide 27 mmol/L (21-32) 07/09/17 05:50 Anion Gap 8 (8-16) 07/09/17 05:50 BUN 9 mg/dL (7-18) D 07/09/17 05:50 Creatinine 1.0 mg/dL (0.7-1.3) 07/09/17 05:50 Creat Clearance w eGFR > 60 (>60) 07/09/17 05:50 Random Glucose 94 mg/dL (74-106) D 07/09/17 05:50 Calcium 8.4 mg/dL (8.5-10.1) L 07/09/17 05:50 Total Bilirubin 0.4 mg/dL (0.2-1.0) 07/09/17 05:50 AST 48 U/L (15-37) H 07/09/17 05:50 ALT 36 U/L (12-78) 07/09/17 05:50 Alkaline Phosphatase 71 U/L (45-117) 07/09/17 05:50 Total Protein 7.0 g/dl (6.4-8.2) 07/09/17 05:50 Albumin 3.3 g/dl (3.4-5.0) L 07/09/17 05:50 Urine Color Yellow 07/08/17 23:10 Urine Appearance Clear 07/08/17 23:10 Urine pH 6.0 (5.0-8.0) 07/08/17 23:10 Ur Specific [place] 1.017 (1.001-1.035) 07/08/17 23:10 Urine Protein Negative (NEGATIVE) 07/08/17 23:10 Urine Glucose (UA) Negative (NEGATIVE) 07/08/17 23:10 Urine Ketones Negative (NEGATIVE) 07/08/17 23:10 Urine Blood Negative (NEGATIVE) 07/08/17 23:10 Urine Nitrite Negative (NEGATIVE) 07/08/17 23:10 Urine Bilirubin Negative (NEGATIVE) 07/08/17 23:10 Urine Urobilinogen Negative mg/dL (0.2-1.0) 07/08/17 23:10 Ur Leukocyte Esterase Negative (NEGATIVE) 07/08/17 23:10 Valproic Acid < 3.000 ug/ml (50-100) L 07/09/17 06:00 RPR Titer Reactive 1:1 (NONREACTIVE) H 07/09/17 05:50 T.pallidum Ab (MHA) Previously reactive (NONREACTIVE) 07/09/17 05:50 LAB NOTED - Treatment Hospital Course: Detox Protocol Followed, Discharged Condition Good - Medication Discharge Medications: Ambulatory Orders Albuterol Sulfate Inhaler - [Ventolin Hfa Inhaler -] 2 inh PO Q4H PRN 05/17/16 Aspirin [ASA -] 81 mg PO DAILY 05/17/16 Trazodone HCl 50 mg PO HS #30 tablet 05/21/16 Divalproex [Depakote -] 500 mg PO BID 07/08/17 Divalproex [Depakote -] 500 mg PO BID #60 tablet.ec 07/08/17 Trazodone HCl [Desyrel -] 50 mg PO HS #30 tablet 07/08/17 - Diagnosis (1) Alcohol dependence with uncomplicated withdrawal Status: Acute (2) Asthma Status: Chronic Qualifiers: Asthma severity: mild Asthma complication type: uncomplicated (3) Nicotine dependence Status: Acute Qualifiers: Nicotine product type: cigarettes Substance use status: in withdrawal Qualified Code(s): F17.213 - Nicotine dependence, cigarettes, with withdrawal (4) Bipolar II disorder Status: Suspected - AMA Did Patient Leave Against Medical Advice: Yes
== END 2017-07-11 07:45 | disposition left against medical advice (07) | DRG 770 ==
LOC: YASAS 08:47 → Y3N 13:24
PROVIDERS: ADMIT Internal Medicine; ATTEND Internal Medicine
PROC: HZ2ZZZZ Detoxification Services for Substance Abuse Treatment (ICD-10-PCS; principal; 2017-07-08)
DX: F10.230 Alcohol dependence with withdrawal, uncomplicated (principal); F14.20 Cocaine dependence, uncomplicated; F17.213 Nicotine dependence, cigarettes, with withdrawal; F31.81 Bipolar II disorder; F32.9 Major depressive disorder, single episode, unspecified; F19.24 Other psychoactive substance dependence with psychoactive substance-induced mood disorder; J45.30 Mild persistent asthma, uncomplicated; J44.9 Chronic obstructive pulmonary disease, unspecified; K21.9 Gastro-esophageal reflux disease without esophagitis; I95.9 Hypotension, unspecified; G47.00 Insomnia, unspecified; Z87.438 Personal history of other diseases of male genital organs; Z88.0 Allergy status to penicillin
CPT/HCPCS: 36415; 71020-TC; 80053; 80164; 81003; 85027; 86593; 86780; 93005; 93010

== ENCOUNTER 2017-12-30 15:11 | Inpatient (IN) | payer OTHER ==
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
[2017-12-30] MEDS ORDERED: IBUPROFEN 400 MG TABLET (FP) PO PRN (18:08)
[2017-12-30] MEDS ORDERED: hydrOXYzine PAMOATE 50 MG CAPSULE (FP) PO PRN (18:08)
[2017-12-30] MEDS ORDERED: MAGNESIUM CITRATE 300 ML BOTTLE PO PRN (18:08)
[2017-12-30] MEDS ORDERED: P-EPHED 60MG/TRIPROLIDI 2.5MG TABLET PO PRN (18:08)
[2017-12-30] MEDS ORDERED: ACETAMINOPHEN 325 MG TABLET (FP) PO PRN (18:08)
[2017-12-30] MEDS ORDERED: MAG HYDROX/AL HYDROX/SIMETH 30 ML UNIT-DOSE CUP PO PRN (18:08)
[2017-12-30] MEDS ORDERED: MENTHOL/PHENOL 1 EACH UD MM PRN (18:08)
[2017-12-30] MEDS ORDERED: chlordiazePOXIDE HCL 25 MG CAPSULE PO PRN (18:08)
[2017-12-30] MEDS ORDERED: LOPERAMIDE HCL 2 MG CAPSULE PO PRN (18:08)
[2017-12-30] MEDS ORDERED: MAGNESIUM HYDROX 2400MG/30ML ORAL SUSPENSION 30 ML CUP PO PRN (18:08)
[2017-12-30] MEDS ORDERED: guaiFENesin/D-METHORPHAN HB 10 ML UNIT-DOSE CUPS PO PRN (18:08)
[2017-12-30 18:11] VITALS: BMI 21.2
[2017-12-30] MEDS ORDERED: NICOTINE POLACRILEX 2 MG GUM BUC PRN (18:13)
[2017-12-30] MEDS ORDERED: ALBUTEROL SO4 18 GM HFA INHALER IH PRN (18:15)
[2017-12-30] MEDS ORDERED: chlordiazePOXIDE HCL 25 MG CAPSULE PO ONE (19:15)
[2017-12-30] MEDS ORDERED: MELATONIN 5 MG TABLETS PO PRN (22:00)
[2017-12-30] MEDS: chlordiazePOXIDE HCL 25 MG CAPSULE PO SCH (23:01)
[2017-12-30] MEDS: THIAMINE HCL 100 MG TABLET (FP) PO SCH (23:02)
[2017-12-30 23:23] LABS: URINE APPEARANCE CLEAR; URINE BILIRUBIN NEGATIVE (<2.0 mg/dL); URINE COLOR LTYELLOW; URINE GLUCOSE (UA) NEGATIVE (NEGATIVE); URINE KETONE NEGATIVE (NEGATIVE); URINE LEUK ESTERASE TRACE (NEGATIVE); URINE NITRITE NEGATIVE (NEGATIVE); URINE PROTEIN NEGATIVE (NEGATIVE); URINE UROBILINOGEN NEGATIVE mg/dL (0.2-1.0)
[2017-12-30 23:29] LABS: EPI CELLS RARE /HPF (FEW); URINE MUCUS RARE
[2017-12-31] MEDS: chlordiazePOXIDE HCL 25 MG CAPSULE PO SCH ×4 (05:18→22:36)
[2017-12-31 10:08] LABS: HEMATOCRIT 36.2 % (35.4-49); HEMOGLOBIN 11.5 GM/dL (11.7-16.9); MCH 23.3 pg (25.7-33.7); MCHC 31.8 g/dl (32.0-35.9); MEAN CELL VOLUME 73.1 fl (80-96); MEAN PLT VOLUME 9.3 fl (7.5-11.1); PLATELET COUNT 165 K/MM3 (134-434); RBC 4.96 M/mm3 (4.00-5.60); RDW 15.5 % (11.9-15.9); WHITE BLOOD COUNT 3.7 K/mm3 (4.0-10.0)
[2017-12-31] MEDS: ASPIRIN 81 MG CHEWABLE TABLETS PO SCH (10:55)
[2017-12-31] MEDS: PRENATAL VITAMINS W/ FOLIC ACID TABLET (FP) PO SCH (10:56)
[2017-12-31] MEDS: NICOTINE 14 MG/24 HOURS TOPICAL PATCH TD SCH (10:56)
--- NOTE | 2017-12-31 11:12 | CONSULT ---
[facility] Psychiatric Consult - Data Date of interview: 12/31/17 Admission source: [facility] Identifying data: Patient is a 51 year old single male, father of four, domiciled and supported by [facility]. This is one of multiple admissions for patient. Pt. admitted to for alcohol and cocaine dependence. Substance Abuse History: - Smoking Cessation. Smoking history: Current every day smoker. Have you smoked in the past 12 months: Yes. Aproximately how many cigarettes per day: 8. Cigars Per Day: 0. Hx Chewing Tobacco Use: No. Initiated information on smoking cessation: Yes. 'Breaking Loose' booklet given : 12/30/17. - Substances Abused. Alcohol. Route: Oral. Frequency: Daily. Amount used: 22 - 24 oz beers. Age of first use: 14. Date of Last Use: 12/30 (6 am ). Cocaine. Route: Smoking. Frequency: 3-6 times per week. Amount used: $175 daily. Age of first use: 25. Date of Last Use: 12/30/17 (6 am ) Medical History: Anemia, COPD Psychiatric History: Patient reports multiple psychiatric hospitalizations, most recently at [facility] five years ago. Pt. with a chronic history of nonadherence to outpatient psychiatric care. Patient utilizes [facility] setting for medication refills. States his medication regime are depakote 500mg BID + Trazodone 50mg + Seroquel 50mg. Pt. denies h/o suicide attempt but as per Dr. Kelly note on 06/2017 patient reports one suicide attempt via cutting. Physical/Sexual Abuse/Trauma History: Denies. Mental Status Exam - Mental Status Exam Alert and Oriented to: Time, Place, Person Cognitive Function: Good Patient Appearance: Well Groomed Mood: Euthymic Affect: Mood Congruent Patient Behavior: Appropriate, Cooperative Speech Pattern: Appropriate Voice Loudness: Normal Thought Process: Intact, Goal Oriented Thought Disorder: Not Present Hallucinations: Denies Suicidal Ideation: Denies Homicidal Ideation: Denies Insight/Judgement: Poor Sleep: Poorly Appetite: Fair Muscle strength/Tone: Normal Gait/Station: Normal Psychiatric Findings - Problem List ([place] 1, 2,3) (1) Alcohol dependence with uncomplicated withdrawal Current Visit: Yes Status: Acute (2) Bipolar disorder Current Visit: Yes Status: Chronic Comment: Self-report.No OPD care.Chronically non-adherent to medications. (3) Cocaine dependence, uncomplicated Current Visit: Yes Status: Chronic (4) Insomnia Current Visit: Yes Status: Chronic Qualifiers: Insomnia type: drug-induced Qualified Code(s): F19.982 - Other psychoactive substance use, unspecified with psychoactive substance-induced sleep disorder (5) Nicotine dependence Current Visit: Yes Status: Acute Qualifiers: Nicotine product type: cigarettes Substance use status: in withdrawal Qualified Code(s): F17.213 - Nicotine dependence, cigarettes, with withdrawal - Initial Treatment Plan Initial Treatment Plan: Psychoeducation provided. Detoxification in progress. Depakote 500mg BID + Seroquel 50mg ordered. Valproic acid level ordered for 01/01. Patient requesting seroquel 50mg. Not interested in accepting trazodone 50mg. Benefits and side effects discussed. Verbal consent given. Will continue to monitor.
--- NOTE | 2017-12-31 11:44 | PN ---
S CIWA - CIWA Score Nausea/Vomitin Muscle Tremors: 3 Anxiety: 3 Agitation: 2 Paroxysmal Sweats: 1-Minimal Palms Moist Orientation: 0-Oriented Tacttile Disturbances: 1-Very Mild Itch/Numbness Auditory Disturbances: 1-Very Mild Visual Disturbances: 1-Very Mild Sensitivity Headache: 2-Mild CIWA-Ar Total Score: 17 S Progress Note (SOAP) Subjective: alert,irritable,anxious,interrupted sleep, Objective: 12/31/17 11:41 Vital Signs Temperature 97.0 F L 12/31/17 09:22 Pulse Rate 82 12/31/17 09:22 Respiratory Rate 16 12/31/17 09:22 Blood Pressure 106/62 12/31/17 09:22 O2 Sat by Pulse Oximetry (%) 12/31/17 11:44 ekg sinus bradycrdia,56/min no chest pain,no sob,no dizziness Laboratory Last Values WBC 3.7 K/mm3 (4.0-10.0) L 12/31/17 07:20 RBC 4.96 M/mm3 (4.00-5.60) 12/31/17 07:20 Hgb 11.5 GM/dL (11.7-16.9) L 12/31/17 07:20 Hct 36.2 % (35.4-49) 12/31/17 07:20 MCV 73.1 fl (80-96) L 12/31/17 07:20 MCH 23.3 pg (25.7-33.7) L 12/31/17 07:20 MCHC 31.8 g/dl (32.0-35.9) L 12/31/17 07:20 RDW 15.5 % (11.9-15.9) 12/31/17 07:20 Plt Count 165 K/MM3 (134-434) 12/31/17 07:20 MPV 9.3 fl (7.5-11.1) 12/31/17 07:20 Urine Color Ltyellow 12/30/17 22:30 Urine Appearance Clear 12/30/17 22:30 Urine pH 5.0 (5.0-8.0) 12/30/17 22:30 Ur Specific [place] 1.020 (1.001-1.035) 12/30/17 22:30 Urine Protein Negative (NEGATIVE) 12/30/17 22:30 Urine Glucose (UA) Negative (NEGATIVE) 12/30/17 22:30 Urine Ketones Negative (NEGATIVE) 12/30/17 22:30 Urine Blood Negative (NEGATIVE) 12/30/17 22:30 Urine Nitrite Negative (NEGATIVE) 12/30/17 22:30 Urine Bilirubin Negative (<2.0 mg/dL) 12/30/17 22: Urine Urobilinogen Negative mg/dL (0.2-1.0) 12/30/17 22:30 Ur Leukocyte Esterase Trace (NEGATIVE) 12/30/17 22:30 Urine WBC (Auto) 14 /hpf (3-5) 12/30/17 22:30 Urine RBC (Auto) <1 /hpf (0-3) 12/30/17 22:30 Ur Epithelial Cells Rare /HPF (FEW) 12/30/17 22:30 Urine Mucus Rare 12/30/17 22:30 12/31/17 11:46 lab pending Assessment: 12/31/17 11:46 withdrawal symptom Plan: continue detox
[2017-12-31 12:19] LABS: ALK PHOS 58 U/L (45-117); ANION GAP 6 (8-16); BILIRUBIN,TOTAL 0.3 mg/dL (0.2-1.0); BLOOD UREA NITROGEN 15 mg/dL (7-18); CALCIUM 8.1 mg/dL (8.5-10.1); CHLORIDE 111 mmol/L (98-107); CO2 27 mmol/L (21-32); CREATININE 1.1 mg/dL (0.7-1.3); GLUCOSE,RANDOM 83 mg/dL (74-106); POTASSIUM 4.1 mmol/L (3.5-5.1); SGOT/AST 34 U/L (15-37); SGPT/ALT 36 U/L (12-78); SODIUM 144 mmol/L (136-145); TOT PROT 6.6 g/dl (6.4-8.2)
--- NOTE | 2017-12-31 12:24 | EKG ---
Test Reason : Blood Pressure : / mmHG Vent. Rate : 056 BPM Atrial Rate : 056 BPM P-R Int : 112 ms QRS Dur : 110 ms QT Int : 470 ms P-R-T Axes : 064 062 062 degrees QTc Int : 453 ms SINUS BRADYCARDIA OTHERWISE NORMAL ECG WHEN COMPARED WITH ECG OF 08-JUL-2017 16:27, NO SIGNIFICANT CHANGE WAS FOUND Confirmed by MD ANTONINA, DOREEN ([id number]) on 12/31/2017 12:24:35 PM Referred By: Confirmed By:DOREEN SARKAR MD
[2017-12-31] MEDS: LORATADINE 10 MG TABLET PO SCH (13:00)
[2017-12-31] MEDS: DIVALPROEX SODIUM 500 MG TABLET E.C. PO SCH (22:36)
[2017-12-31] MEDS: THIAMINE HCL 100 MG TABLET (FP) PO SCH (22:36)
[2017-12-31] MEDS: QUEtiapine FUMARATE 50 MG TABLET PO SCH (22:37)
[2018-01-01] MEDS: chlordiazePOXIDE HCL 25 MG CAPSULE PO SCH ×3 (05:32→17:20)
--- NOTE | 2018-01-01 10:12 | PN ---
S CIWA - CIWA Score Nausea/Vomitin Muscle Tremors: 2 Anxiety: 3 Agitation: 2 Paroxysmal Sweats: 3 Orientation: 0-Oriented Tacttile Disturbances: 1-Very Mild Itch/Numbness Auditory Disturbances: 0-None Visual Disturbances: 0-None Headache: 0-None Present CIWA-Ar Total Score: 13 S Progress Note (SOAP) Subjective: interrupted sleep, sweats, lbp and sorethroat Objective: 01/01/18 10:09 Vital Signs Temperature 96.6 F L 01/01/18 09:25 Pulse Rate 78 01/01/18 09:25 Respiratory Rate 18 01/01/18 09:25 Blood Pressure 104/65 01/01/18 09:25 O2 Sat by Pulse Oximetry (%) Laboratory Tests 12/30/17 12/31/17 12/31/17 22:30 07:20 07:20 WBC 3.7 L RBC 4.96 Hgb 11.5 L Hct 36.2 MCV 73.1 L MCH 23.3 L MCHC 31.8 L RDW 15.5 Plt Count 165 MPV 9.3 Sodium 144 Potassium 4.1 Chloride 111 H Carbon Dioxide 27 Anion Gap 6 L BUN 15 D Creatinine 1.1 Creat Clearance w eGFR > 60 Random Glucose 83 Calcium 8.1 L Total Bilirubin 0.3 D AST 34 D ALT 36 Alkaline Phosphatase 58 Total Protein 6.6 Albumin 3.0 L Urine Color Ltyellow Urine Appearance Clear Urine pH 5.0 Ur Specific [place] 1.020 Urine Protein Negative Urine Glucose (UA) Negative Urine Ketones Negative Urine Blood Negative Urine Nitrite Negative Urine Bilirubin Negative Urine Urobilinogen Negative Ur Leukocyte Esterase Trace Urine WBC (Auto) 14 Urine RBC (Auto) <1 Ur Epithelial Cells Rare Urine Mucus Rare pt aox3 in nad ambulating oral clear Assessment: 01/01/18 10:10 withdrawal sx's sorethroat Plan: cont. detox increase fluids viscous lidocaine throat lozenges
[2018-01-01] MEDS: PRENATAL VITAMINS W/ FOLIC ACID TABLET (FP) PO SCH (11:18)
[2018-01-01] MEDS: DIVALPROEX SODIUM 500 MG TABLET E.C. PO SCH ×2 (11:18→22:53)
[2018-01-01] MEDS: ASPIRIN 81 MG CHEWABLE TABLETS PO SCH (11:18)
[2018-01-01] MEDS: LORATADINE 10 MG TABLET PO SCH (11:19)
[2018-01-01] MEDS: NICOTINE 14 MG/24 HOURS TOPICAL PATCH TD SCH (11:22)
[2018-01-01 13:18] LABS: RPR REACTIVE 1:1 (NONREACTIVE)
[2018-01-01 13:20] LABS: TREPONEMA ANTIBODY PREVIOUSLY REACTIVE (NONREACTIVE)
--- NOTE | 2018-01-01 17:31 | PN ---
BHS Progress Note Note: c/o sore throat. Vital Signs Temperature 97.5 F L 01/01/18 13:45 Pulse Rate 73 01/01/18 13:45 Respiratory Rate 18 01/01/18 13:45 Blood Pressure 102/58 01/01/18 13:45 O2 Sat by Pulse Oximetry (%) Peridex wash PO BID PRN continue to monitor
[2018-01-01] MEDS ORDERED: CHLORHEXIDINE GLUCONATE 0.12% 15ML CUP MM SCH (22:00)
[2018-01-01] MEDS: chlordiazePOXIDE 5 MG CAPSULE PO SCH (22:53)
[2018-01-01] MEDS: THIAMINE HCL 100 MG TABLET (FP) PO SCH (22:53)
[2018-01-01] MEDS: QUEtiapine FUMARATE 50 MG TABLET PO SCH (22:53)
[2018-01-02] MEDS: chlordiazePOXIDE 5 MG CAPSULE PO SCH ×2 (09:23→11:22)
[2018-01-02 09:29] VITALS: BP 117/68; PULSE 79; TEMP 97.9
--- NOTE | 2018-01-02 10:17 | PN ---
[facility] Progress Note Note: PATIENT EVALUATED WHILE IN BED. ALERT AND ORIENTED X 3. IN NO ACUTE DISTRESS. STATED "WHAT NOW?" WHEN EXERCISE TEACHER ASKED HOW ARE YOU DOING? ADMITTED FOR ETOH WITHDRAWAL DETOX. Laboratory Tests 12/30/17 12/31/17 12/31/17 22:30 07:20 07:20 WBC 3.7 L RBC 4.96 Hgb 11.5 L Hct 36.2 MCV 73.1 L MCH 23.3 L MCHC 31.8 L RDW 15.5 Plt Count 165 MPV 9.3 Sodium 144 Potassium 4.1 Chloride 111 H Carbon Dioxide 27 Anion Gap 6 L BUN 15 D Creatinine 1.1 Creat Clearance w eGFR > 60 Random Glucose 83 Calcium 8.1 L Total Bilirubin 0.3 D AST 34 D ALT 36 Alkaline Phosphatase 58 Total Protein 6.6 Albumin 3.0 L Urine Color Ltyellow Urine Appearance Clear Urine pH 5.0 Ur Specific [place] 1.020 Urine Protein Negative Urine Glucose (UA) Negative Urine Ketones Negative Urine Blood Negative Urine Nitrite Negative Urine Bilirubin Negative Urine Urobilinogen Negative Ur Leukocyte Esterase Trace Urine WBC (Auto) 14 Urine RBC (Auto) <1 Ur Epithelial Cells Rare Urine Mucus Rare Valproic Acid RPR Titer T.pallidum Ab (MHA) 12/31/17 01/01/18 07:20 06:00 WBC RBC Hgb Hct MCV MCH MCHC RDW Plt Count MPV Sodium Potassium Chloride Carbon Dioxide Anion Gap BUN Creatinine Creat Clearance w eGFR Random Glucose Calcium Total Bilirubin AST ALT Alkaline Phosphatase Total Protein Albumin Urine Color Urine Appearance Urine pH Ur Specific [place] Urine Protein Urine Glucose (UA) Urine Ketones Urine Blood Urine Nitrite Urine Bilirubin Urine Urobilinogen Ur Leukocyte Esterase Urine WBC (Auto) Urine RBC (Auto) Ur Epithelial Cells Urine Mucus Valproic Acid < 3.0 L RPR Titer Reactive 1:1 H T.pallidum Ab (MHA) Previously reactive Vital Signs Temperature 97.9 F 01/02/18 09:28 Pulse Rate 79 01/02/18 09:28 Respiratory Rate 18 01/02/18 09:28 Blood Pressure 117/68 01/02/18 09:28 O2 Sat by Pulse Oximetry (%) OBJ: GENERAL: ALERT AND ORIENTED X 3. IN NAD SKIN: WARM AND DRY EXT: NO EDEMA A/P: ETOH DETOX WILL CONTINUE CURRENT TREATMENT ORAL FLUIDS ENCOURAGED CONTINUE TO MONITOR CLINICALLY
--- NOTE | 2018-01-02 10:37 | DS ---
[facility] Detox Discharge Summary Admission Date: 12/30/17 - History Present History: Alcohol Dependence - Physical Exam Results Vital Signs: Vital Signs Temperature 97.9 F 01/02/18 09:28 Pulse Rate 79 01/02/18 09:28 Respiratory Rate 18 01/02/18 09:28 Blood Pressure 117/68 01/02/18 09:28 O2 Sat by Pulse Oximetry (%) - Treatment Hospital Course: Detox Protocol Followed, Detoxed Safely, Responded well - Medication Discharge Medications: Ambulatory Orders Trazodone HCl 50 mg PO HS #30 tablet 05/21/16 Divalproex [Depakote -] 500 mg PO BID 07/08/17 Divalproex [Depakote -] 500 mg PO BID #60 tablet.ec 07/08/17 traZODone HCL [Desyrel -] 50 mg PO HS #30 tablet 07/08/17 Albuterol Sulfate Inhaler - [Ventolin HFA Inhaler -] 2 inh PO Q4H PRN #1 inhaler 01/02/18 Aspirin [ASA -] 81 mg PO DAILY #30 tab.chew 01/02/18 - Diagnosis (1) Alcohol dependence with uncomplicated withdrawal Current Visit: Yes Status: Chronic - AMA Did Patient Leave Against Medical Advice: No
--- NOTE | 2018-01-02 10:39 | PN ---
[facility] Progress Note Note: PATIENT CAME TO RN STATION STATING HE FEELS WELL AND WOULD LIKE EARLY DISCHARGE TODAY. ADMITTED 12/30/17 FOR ETOH WITHDRAWAL. TOLERATED DETOX WELL. PATIENT MEDICALLY STABLE. STATES HE " I FEEL HOMESICK AND JUST WANT TO GO HOME TODAY". SPOKE WITH COUNSELOR AND PATIENT TO FOLLOW UP WITH [facility]. PATIENT DENIES SI/HI. STABLE FOR EARLY DISCHARGE. D/C MEDICATIONS SENT TO [facility].
[2018-01-02] MEDS: PRENATAL VITAMINS W/ FOLIC ACID TABLET (FP) PO SCH (11:31)
[2018-01-02] MEDS: LORATADINE 10 MG TABLET PO SCH (11:31)
[2018-01-02] MEDS: DIVALPROEX SODIUM 500 MG TABLET E.C. PO SCH (11:31)
[2018-01-02] MEDS: ASPIRIN 81 MG CHEWABLE TABLETS PO SCH (11:31)
[2018-01-02] MEDS ORDERED: chlordiazePOXIDE HCL 10 MG CAPSULE PO SCH (23:00)
== END 2018-01-02 11:33 | disposition home or self-care (01) | DRG 774 ==
LOC: YASAS 15:11 → Y6N 18:45
PROVIDERS: ADMIT Surgery; ATTEND Surgery
PROC: HZ2ZZZZ Detoxification Services for Substance Abuse Treatment (ICD-10-PCS; principal; 2017-12-30)
DX: F10.230 Alcohol dependence with withdrawal, uncomplicated (principal); F14.20 Cocaine dependence, uncomplicated; F17.213 Nicotine dependence, cigarettes, with withdrawal; F31.81 Bipolar II disorder; J45.909 Unspecified asthma, uncomplicated; G47.00 Insomnia, unspecified; J02.9 Acute pharyngitis, unspecified; R00.1 Bradycardia, unspecified; Z88.0 Allergy status to penicillin; Z87.898 Personal history of other specified conditions
CPT/HCPCS: 36415; 80053; 80164; 81003; 81015; 85027; 86593; 86780; 93005; 93010

== ENCOUNTER 2018-03-26 12:07 | Inpatient (IN) | payer OTHER ==
[2018-03-26 12:55] VITALS: BMI 21.7
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
[2018-03-26] MEDS ORDERED: ALBUTEROL SO4 8 GM HFA INHALER IH PRN (17:32)
[2018-03-26] MEDS ORDERED: P-EPHED 60MG/TRIPROLIDI 2.5MG TABLET PO PRN (17:33)
[2018-03-26] MEDS ORDERED: hydrOXYzine PAMOATE 50 MG CAPSULE (FP) PO PRN (17:33)
[2018-03-26] MEDS ORDERED: MENTHOL/PHENOL 1 EACH UD MM PRN (17:33)
[2018-03-26] MEDS ORDERED: LOPERAMIDE HCL 2 MG CAPSULE PO PRN (17:33)
[2018-03-26] MEDS ORDERED: MAG HYDROX/AL HYDROX/SIMETH 30 ML UNIT-DOSE CUP PO PRN (17:33)
[2018-03-26] MEDS ORDERED: chlordiazePOXIDE HCL 25 MG CAPSULE PO PRN (17:33)
[2018-03-26] MEDS ORDERED: MAGNESIUM CITRATE 300 ML BOTTLE PO PRN (17:33)
[2018-03-26] MEDS ORDERED: ACETAMINOPHEN 325 MG TABLET (FP) PO PRN (17:33)
[2018-03-26] MEDS ORDERED: guaiFENesin/D-METHORPHAN HB 10 ML UNIT-DOSE CUPS PO PRN (17:33)
[2018-03-26] MEDS ORDERED: IBUPROFEN 400 MG TABLET (FP) PO PRN (17:33)
[2018-03-26] MEDS ORDERED: NICOTINE POLACRILEX 2 MG GUM BC PRN (17:33)
[2018-03-26] MEDS ORDERED: MAGNESIUM HYDROX 2400MG/30ML ORAL SUSPENSION 30 ML CUP PO PRN (17:33)
[2018-03-26] MEDS ORDERED: chlordiazePOXIDE HCL 25 MG CAPSULE PO ONE (18:00)
[2018-03-26] MEDS ORDERED: MELATONIN 5 MG TABLETS PO PRN (22:00)
[2018-03-26] MEDS: chlordiazePOXIDE HCL 25 MG CAPSULE PO SCH (22:40)
[2018-03-26] MEDS: THIAMINE HCL 100 MG TABLET (FP) PO SCH (22:40)
[2018-03-27 01:13] LABS: URINE APPEARANCE CLEAR; URINE BILIRUBIN NEGATIVE (<2.0 mg/dL); URINE COLOR YELLOW; URINE GLUCOSE (UA) NEGATIVE (NEGATIVE); URINE KETONE NEGATIVE (NEGATIVE); URINE NITRITE NEGATIVE (NEGATIVE); URINE PROTEIN NEGATIVE (NEGATIVE); URINE UROBILINOGEN NEGATIVE mg/dL (0.2-1.0)
[2018-03-27 01:38] LABS: URINE LEUK ESTERASE 1+ (NEGATIVE)
[2018-03-27 01:42] LABS: EPI CELLS RARE /HPF (FEW)
[2018-03-27] MEDS: chlordiazePOXIDE HCL 25 MG CAPSULE PO SCH ×4 (07:58→22:08)
[2018-03-27] MEDS: NICOTINE 14 MG/24 HOURS TOPICAL PATCH TD SCH (10:49)
[2018-03-27] MEDS: PRENATAL VITAMINS W/ FOLIC ACID TABLET (FP) PO SCH (10:49)
[2018-03-27] MEDS: ASPIRIN 81 MG CHEWABLE TABLETS PO SCH (10:49)
[2018-03-27 11:00] LABS: CHLORIDE 104 mmol/L (98-107); POTASSIUM 4.4 mmol/L (3.5-5.1); SODIUM 141 mmol/L (136-145)
[2018-03-27 11:25] LABS: ALBUMIN 3.4 g/dl (3.4-5.0); ALK PHOS 64 U/L (45-117); ANION GAP 8 MMOL/L (8-16); BILIRUBIN,TOTAL 0.2 mg/dL (0.2-1.0); BLOOD UREA NITROGEN 12 mg/dL (7-18); CALCIUM 8.5 mg/dL (8.5-10.1); CO2 29 mmol/L (21-32); GLUCOSE,RANDOM 88 mg/dL (74-106); SGOT/AST 34 U/L (15-37); SGPT/ALT 27 U/L (12-78); TOT PROT 7.2 g/dl (6.4-8.2)
[2018-03-27 11:43] LABS: HEMOGLOBIN 10.8 GM/dL (11.7-16.9); MCH 22.8 pg (25.7-33.7); MCHC 30.9 g/dl (32.0-35.9); MEAN CELL VOLUME 73.8 fl (80-96); MEAN PLT VOLUME 10.4 fl (7.5-11.1); PLATELET COUNT 163 K/MM3 (134-434); RBC 4.75 M/mm3 (4.00-5.60); RDW 16.1 % (11.9-15.9)
--- NOTE | 2018-03-27 12:37 | PN ---
S CIWA - CIWA Score Nausea/Vomitin-No Nausea/No Vomiting Muscle Tremors: 4-Moderate,w/Arms Extend Anxiety: 4-Mod. Anxious/Guarded Agitation: 4-Moderately Restless Paroxysmal Sweats: 1-Minimal Palms Moist Orientation: 0-Oriented Tacttile Disturbances: 0-None Auditory Disturbances: 0-None Visual Disturbances: 0-None Headache: 0-None Present CIWA-Ar Total Score: 13 BHS Progress Note (SOAP) Subjective: ANXIETY,TREMORS, SWEATS, FATIGUE. Objective: 03/27/18 12:37 Vital Signs 03/27/18 03/27/18 06:20 10:24 Temperature 97.5 F L 96.9 F L Pulse Rate 55 L 50 L Respiratory 18 18 Rate Blood Pressure 95/60 98/52 Laboratory Tests 03/27/18 03/27/18 03/27/18 00:40 06:00 06:00 WBC 4.0 RBC 4.75 Hgb 10.8 L Hct 35.0 L MCV 73.8 L MCH 22.8 L MCHC 30.9 L RDW 16.1 H Plt Count 163 MPV 10.4 D Sodium 141 Potassium 4.4 Chloride 104 Carbon Dioxide 29 Anion Gap 8 BUN 12 Creatinine 1.0 Creat Clearance w eGFR > 60 Random Glucose 88 Calcium 8.5 Total Bilirubin 0.2 AST 34 ALT 27 D Alkaline Phosphatase 64 Total Protein 7.2 Albumin 3.4 Urine Color Yellow Urine Appearance Clear Urine pH 6.0 Ur Specific [place] 1.018 Urine Protein Negative Urine Glucose (UA) Negative Urine Ketones Negative Urine Blood Negative Urine Nitrite Negative Urine Bilirubin Negative Urine Urobilinogen Negative Ur Leukocyte Esterase 1+ H Urine WBC (Auto) 16 Urine RBC (Auto) <1 Ur Epithelial Cells Rare Assessment: 03/27/18 12:37 WITHDRAWAL SX Plan: CONTINUE DETOX
--- NOTE | 2018-03-27 13:49 | EKG ---
Test Reason : Blood Pressure : / mmHG Vent. Rate : 057 BPM Atrial Rate : 057 BPM P-R Int : 126 ms QRS Dur : 098 ms QT Int : 436 ms P-R-T Axes : 068 051 047 degrees QTc Int : 424 ms SINUS BRADYCARDIA POSSIBLE LEFT ATRIAL ENLARGEMENT BORDERLINE ECG WHEN COMPARED WITH ECG OF 30-DEC-2017 20:17, NO SIGNIFICANT CHANGE WAS FOUND Confirmed by RAJI LARA MD ([id number]) on 03/27/2018 1:49:07 PM Referred By: Confirmed By:RAJI LARA MD
--- NOTE | 2018-03-27 16:39 | CONSULT ---
[facility] Psychiatric Consult - Data Date of interview: 03/27/18 Admission source: [facility] Identifying data: Patient is a 52 year old single male, without children, and currently supported by [facility]. This is one of multiple admissions for patient. Pt. admitted to for alcohol and cocaine dependence. Substance Abuse History: Smoking Cessation. Smoking history: Current some day smoker. Have you smoked in the past 12 months: Yes. Aproximately how many cigarettes per day: 4. Cigars Per Day: 0. Hx Chewing Tobacco Use: No. Initiated information on smoking cessation: Yes. 'Breaking Loose' booklet given : 03/26/18. - Substance & Tx. History. Hx Alcohol Use: Yes. Hx Substance Use : Yes. Substance Use Type: Alcohol, Cocaine. Hx Substance Use Treatment: Yes ( Last detox [facility] January 2018). - Substances Abused. Crack. Route: Smoking. Frequency: Daily. Amount used: $70. Age of first use: 25. Date of Last Use: 03/24/18. Alcohol-bro/beer. Route: Oral. Frequency: Daily. Amount used : 1 1/2 pints,/3-4 6 pks. Age of first use: 14. Date of Last Use: 03/26/18 Medical History: Anemia, asthma, acid reflux Psychiatric History: Patient denies h/o psychiatric hospitalizations despite stating the opposite during previous admissions. Pt. with a chronic history of nonadherence to outpatient psychiatric care. Patient utilizes CPE setting for medication refills. States he recently received a refill from [facility] of his current medication regime of depakote 500mg BID + Trazodone 50mg + Seroquel 50mg. Pt. refusing to accept trazodone. Pt. denies h/o suicide attempt. Physical/Sexual Abuse/Trauma History: denies. Mental Status Exam - Mental Status Exam Alert and Oriented to: Time, Place, Person Cognitive Function: Good Patient Appearance: Unkempt Mood: Suspicious, Withdrawn Affect: Blunted Patient Behavior: Fatigued, Guarded, Cooperative Speech Pattern: Appropriate Voice Loudness: Normal Thought Process: Goal Oriented Thought Disorder: Not Present Hallucinations: Denies Suicidal Ideation: Denies Homicidal Ideation: Denies Insight/Judgement: Poor Sleep: Fair Appetite: Fair Muscle strength/Tone: Normal Gait/Station: Other (Did not observe patient's gait.) Psychiatric Findings - Problem List ([place] 1, 2,3) (1) Alcohol dependence with uncomplicated withdrawal Current Visit: Yes Status: Acute (2) Cocaine dependence, uncomplicated Current Visit: Yes Status: Acute (3) Nicotine dependence Current Visit: Yes Status: Acute Qualifiers: Nicotine product type: cigarettes Substance use status: in withdrawal Qualified Code(s): F17.213 - Nicotine dependence, cigarettes, with withdrawal (4) Substance induced mood disorder Current Visit: Yes Status: Acute (5) Bipolar disorder Current Visit: Yes Status: Chronic Comment: Self-report.No OPD care.Chronically non-adherent to medications. - Initial Treatment Plan Initial Treatment Plan: Psychoeducation provided. Detoxification in progress. Depakote 500mg BID + Seroquel 50mg qhs ordered. Benefits and side effects discussed. Verbal consent given.
[2018-03-27] MEDS: THIAMINE HCL 100 MG TABLET (FP) PO SCH (22:08)
[2018-03-27] MEDS: DIVALPROEX SODIUM 500 MG TABLET E.C. PO SCH (22:08)
[2018-03-27] MEDS: QUEtiapine FUMARATE 50 MG TABLET PO SCH (22:08)
[2018-03-28] MEDS: chlordiazePOXIDE HCL 25 MG CAPSULE PO SCH ×3 (06:32→17:24)
[2018-03-28] MEDS: PRENATAL VITAMINS W/ FOLIC ACID TABLET (FP) PO SCH (11:39)
[2018-03-28] MEDS: NICOTINE 14 MG/24 HOURS TOPICAL PATCH TD SCH (11:39)
[2018-03-28] MEDS: ASPIRIN 81 MG CHEWABLE TABLETS PO SCH (11:39)
[2018-03-28] MEDS: DIVALPROEX SODIUM 500 MG TABLET E.C. PO SCH ×2 (11:39→22:10)
--- NOTE | 2018-03-28 14:40 | PN ---
S CIWA - CIWA Score Nausea/Vomitin-No Nausea/No Vomiting Muscle Tremors: 4-Moderate,w/Arms Extend Anxiety: 4-Mod. Anxious/Guarded Agitation: 4-Moderately Restless Paroxysmal Sweats: 1-Minimal Palms Moist Orientation: 0-Oriented Tacttile Disturbances: 0-None Auditory Disturbances: 0-None Visual Disturbances: 0-None Headache: 0-None Present CIWA-Ar Total Score: 13 BHS Progress Note (SOAP) Subjective: ANXIETY,SWEATS,FATIGUE. Objective: 03/28/18 14:39 Vital Signs 03/28/18 03/28/18 09:45 13:45 Temperature 98.3 F 97.7 F Pulse Rate 72 62 Respiratory 18 18 Rate Blood Pressure 85/52 93/50 Laboratory Tests 03/27/18 03/27/18 03/27/18 00:40 06:00 06:00 WBC 4.0 RBC 4.75 Hgb 10.8 L Hct 35.0 L MCV 73.8 L MCH 22.8 L MCHC 30.9 L RDW 16.1 H Plt Count 163 MPV 10.4 D Sodium 141 Potassium 4.4 Chloride 104 Carbon Dioxide 29 Anion Gap 8 BUN 12 Creatinine 1.0 Creat Clearance w eGFR > 60 Random Glucose 88 Calcium 8.5 Total Bilirubin 0.2 AST 34 ALT 27 D Alkaline Phosphatase 64 Total Protein 7.2 Albumin 3.4 Urine Color Yellow Urine Appearance Clear Urine pH 6.0 Ur Specific [place] 1.018 Urine Protein Negative Urine Glucose (UA) Negative Urine Ketones Negative Urine Blood Negative Urine Nitrite Negative Urine Bilirubin Negative Urine Urobilinogen Negative Ur Leukocyte Esterase 1+ H Urine WBC (Auto) 16 Urine RBC (Auto) <1 Ur Epithelial Cells Rare Assessment: 03/28/18 14:39 WITHDRAWAL SX Plan: CONTINUE DETOX INCREASE PO FLUIDS REPEAT UA TODAY
[2018-03-28 14:44] LABS: RPR REACTIVE 1:1 (NONREACTIVE)
[2018-03-28 14:56] LABS: TREPONEMA ANTIBODY PREVIOUSLY REACTIVE (NONREACTIVE)
[2018-03-28] MEDS: chlordiazePOXIDE 5 MG CAPSULE PO SCH (22:10)
[2018-03-28] MEDS: QUEtiapine FUMARATE 50 MG TABLET PO SCH (22:10)
[2018-03-28] MEDS: THIAMINE HCL 100 MG TABLET (FP) PO SCH (22:10)
[2018-03-29] MEDS: chlordiazePOXIDE 5 MG CAPSULE PO SCH ×2 (06:11→11:10)
[2018-03-29 09:46] VITALS: BP 98/57; PULSE 69; TEMP 97.8
--- NOTE | 2018-03-29 10:52 | PN ---
BHS Progress Note (SOAP) Subjective: PT SEEN IN BED, EXHIBITING ANXIETY,AGITATION, IRRITABILITY, FATIGUE . Objective: 03/29/18 10:51 Vital Signs 03/29/18 03/29/18 03/29/18 03:30 06:30 06:52 Temperature 97.9 F Pulse Rate 63 Respiratory 18 18 18 Rate Blood Pressure 101/56 03/29/18 09:45 Temperature 97.8 F Pulse Rate 69 Respiratory 18 Rate Blood Pressure 98/57 Laboratory Tests 03/27/18 03/27/18 03/27/18 00:40 06:00 06:00 WBC 4.0 RBC 4.75 Hgb 10.8 L Hct 35.0 L MCV 73.8 L MCH 22.8 L MCHC 30.9 L RDW 16.1 H Plt Count 163 MPV 10.4 D Sodium 141 Potassium 4.4 Chloride 104 Carbon Dioxide 29 Anion Gap 8 BUN 12 Creatinine 1.0 Creat Clearance w eGFR > 60 Random Glucose 88 Calcium 8.5 Total Bilirubin 0.2 AST 34 ALT 27 D Alkaline Phosphatase 64 Total Protein 7.2 Albumin 3.4 Urine Color Yellow Urine Appearance Clear Urine pH 6.0 Ur Specific [place] 1.018 Urine Protein Negative Urine Glucose (UA) Negative Urine Ketones Negative Urine Blood Negative Urine Nitrite Negative Urine Bilirubin Negative Urine Urobilinogen Negative Ur Leukocyte Esterase 1+ H Urine WBC (Auto) 16 Urine RBC (Auto) <1 Ur Epithelial Cells Rare RPR Titer T.pallidum Ab (A) 03/27/18 06:00 WBC RBC Hgb Hct MCV MCH MCHC RDW Plt Count MPV Sodium Potassium Chloride Carbon Dioxide Anion Gap BUN Creatinine Creat Clearance w eGFR Random Glucose Calcium Total Bilirubin AST ALT Alkaline Phosphatase Total Protein Albumin Urine Color Urine Appearance Urine pH Ur Specific [place] Urine Protein Urine Glucose (UA) Urine Ketones Urine Blood Urine Nitrite Urine Bilirubin Urine Urobilinogen Ur Leukocyte Esterase Urine WBC (Auto) Urine RBC (Auto) Ur Epithelial Cells RPR Titer Reactive 1:1 H T.pallidum Ab (MHA) Previously reactive LABS NOTED Assessment: 03/29/18 10:52 WITHDRAWAL SX Plan: CONTINUE DETOX
[2018-03-29] MEDS: ASPIRIN 81 MG CHEWABLE TABLETS PO SCH (11:00)
[2018-03-29] MEDS: DIVALPROEX SODIUM 500 MG TABLET E.C. PO SCH (11:00)
[2018-03-29] MEDS: PRENATAL VITAMINS W/ FOLIC ACID TABLET (FP) PO SCH (11:09)
[2018-03-29] MEDS: NICOTINE 14 MG/24 HOURS TOPICAL PATCH TD SCH (11:10)
[2018-03-29] MEDS ORDERED: chlordiazePOXIDE HCL 10 MG CAPSULE PO SCH (23:00)
== END 2018-03-29 15:17 | disposition left against medical advice (07) | DRG 770 ==
LOC: YASAS 12:07 → Y3N 17:17
PROC: HZ2ZZZZ Detoxification Services for Substance Abuse Treatment (ICD-10-PCS; principal; 2018-03-26)
DX: F10.230 Alcohol dependence with withdrawal, uncomplicated (principal); F14.20 Cocaine dependence, uncomplicated; F17.213 Nicotine dependence, cigarettes, with withdrawal; F31.9 Bipolar disorder, unspecified; F41.9 Anxiety disorder, unspecified; F19.24 Other psychoactive substance dependence with psychoactive substance-induced mood disorder; J45.909 Unspecified asthma, uncomplicated; J44.9 Chronic obstructive pulmonary disease, unspecified; K21.9 Gastro-esophageal reflux disease without esophagitis; D64.9 Anemia, unspecified; R63.4 Abnormal weight loss; Z68.21 Body mass index [BMI] 21.0-21.9, adult; Z86.19 Personal history of other infectious and parasitic diseases; Z88.0 Allergy status to penicillin
CPT/HCPCS: 36415; 80053; 81003; 81015; 85027; 86593; 86780; 93005; 93010

== ENCOUNTER 2019-01-13 08:52 | Inpatient (IN) | payer OTHER ==
[2019-01-13 09:45] VITALS: BMI 21.4
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
[2019-01-13] MEDS ORDERED: NICOTINE POLACRILEX 2 MG GUM BUC PRN (10:39)
[2019-01-13] MEDS ORDERED: ACETAMINOPHEN 325 MG TABLET (FP) PO PRN ×2 (10:39)
[2019-01-13] MEDS ORDERED: IBUPROFEN 400 MG TABLET (FP) PO PRN (10:39)
[2019-01-13] MEDS ORDERED: ALBUTEROL SO4 8 GM HFA INHALER IH PRN (10:39)
[2019-01-13] MEDS ORDERED: MELATONIN 5 MG TABLETS PO PRN (10:39)
[2019-01-13] MEDS ORDERED: hydrOXYzine PAMOATE 25 MG CAPSULE (FP) PO PRN (10:39)
[2019-01-13] MEDS ORDERED: BISMUTH SUBSALICYLATE 524 MG/30 ML UD PO PRN (10:39)
[2019-01-13] MEDS ORDERED: MAGNESIUM CITRATE 300 ML BOTTLE PO PRN (10:39)
[2019-01-13] MEDS ORDERED: MENTHOL/PHENOL 1 EACH UD MM PRN (10:39)
[2019-01-13] MEDS ORDERED: MAG HYDROX/AL HYDROX/SIMETH 30 ML UNIT-DOSE CUP PO PRN (10:39)
[2019-01-13] MEDS ORDERED: MAGNESIUM HYDROX 2400MG/30ML ORAL SUSPENSION 30 ML CUP PO PRN (10:39)
[2019-01-13] MEDS ORDERED: diazePAM 5 MG TABLET PO PRN (10:41)
[2019-01-13] MEDS ORDERED: TUBERCULIN PPD 5 TU/0.1ML VIAL ID ONE (11:47)
[2019-01-13] MEDS: ASPIRIN 81 MG CHEWABLE TABLETS PO SCH (11:49)
[2019-01-13] MEDS: diazePAM 5 MG TABLET PO SCH ×2 (14:10→22:36)
[2019-01-13 15:36] LABS: HEMATOCRIT 42.7 % (35.4-49); HEMOGLOBIN 13.2 GM/dL (11.7-16.9); MCH 22.7 pg (25.7-33.7); MEAN CELL VOLUME 73.1 fl (80-96); MEAN PLT VOLUME 10.8 fl (7.5-11.1); RBC 5.84 M/mm3 (4.00-5.60); WHITE BLOOD COUNT 4.8 K/mm3 (4.0-10.0)
[2019-01-13 15:49] LABS: PLATELET COUNT 197 K/MM3 (134-434)
[2019-01-13 16:16] LABS: ALBUMIN 3.7 g/dl (3.4-5.0); BILIRUBIN,TOTAL 0.3 mg/dL (0.2-1); BLOOD UREA NITROGEN 7.8 mg/dL (7-18); CALCIUM 9.2 mg/dL (8.5-10.1); CREATININE 1.1 mg/dL (0.55-1.3); POTASSIUM 4.4 mmol/L (3.5-5.1)
[2019-01-13] MEDS: THIAMINE HCL 100 MG TABLET (FP) PO SCH (22:36)
[2019-01-14] MEDS: diazePAM 5 MG TABLET PO SCH (05:24)
[2019-01-14] MEDS ORDERED: ONDANSETRON *ODT* 4 MG TABLET SL PRN (09:20)
[2019-01-14] MEDS ORDERED: chlordiazePOXIDE HCL 25 MG CAPSULE PO PRN (09:23)
[2019-01-14] MEDS: ASPIRIN 81 MG CHEWABLE TABLETS PO SCH (09:26)
[2019-01-14] MEDS: PRENATAL VITAMINS W/ FOLIC ACID TABLET (FP) PO SCH (09:26)
[2019-01-14] MEDS: chlordiazePOXIDE HCL 25 MG CAPSULE PO SCH ×3 (10:17→22:33)
[2019-01-14 10:36] LABS: RPR REACTIVE 1:4 (NONREACTIVE)
[2019-01-14 10:37] LABS: TREPONEMA ANTIBODY PREVIOUSLY REACTIVE (NONREACTIVE)
[2019-01-14] MEDS ORDERED: diazePAM 5 MG TABLET PO SCH (14:00)
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
--- NOTE | 2019-01-14 15:30 | PN ---
S CIWA - CIWA Score Nausea/Vomitin-No Nausea/No Vomiting Muscle Tremors: 3 Anxiety: 2 Agitation: 0-Normal Activity Paroxysmal Sweats: 3 Orientation: 0-Oriented Tacttile Disturbances: 2-Mild Itch/Numbness/Burn Auditory Disturbances: 0-None Visual Disturbances: 2-Mild Sensitivity Headache: 0-None Present CIWA-Ar Total Score: 12 BHS Progress Note (SOAP) Subjective: Sweating, Tremors, Body Aches, Diarrhea. Objective: PATIENT A & O X 3, OBSERVED AMBULATING ON UNIT UNASSISTED. IN NO ACUTE DISTRESS. 01/14/19 15:29 Vital Signs Temperature 97.1 F L 01/14/19 13:49 Pulse Rate 61 01/14/19 13:49 Respiratory Rate 18 01/14/19 13:49 Blood Pressure 101/67 01/14/19 13:49 O2 Sat by Pulse Oximetry (%) Laboratory Tests 01/13/19 01/13/19 01/13/19 11:15 11:15 11:15 WBC 4.8 RBC 5.84 H Hgb 13.2 Hct 42.7 D MCV 73.1 L MCH 22.7 L MCHC 31.0 L RDW 16.0 H Plt Count 197 D MPV 10.8 Sodium 138 Potassium 4.4 Chloride 104 Carbon Dioxide 31 Anion Gap 3 L BUN 7.8 Creatinine 1.1 Est GFR (CKD-EPI)AfAm 88.36 Est GFR (CKD-EPI)NonAf 76.24 Random Glucose 84 Calcium 9.2 Total Bilirubin 0.3 AST 34 ALT 38 Alkaline Phosphatase 76 Total Protein 8.0 Albumin 3.7 RPR Titer T.pallidum Ab (MHA) HIV 1&2 Antibody Screen Negative HIV P24 Antigen Negative 01/13/19 11:15 WBC RBC Hgb Hct MCV MCH MCHC RDW Plt Count MPV Sodium Potassium Chloride Carbon Dioxide Anion Gap BUN Creatinine Est GFR (CKD-EPI)AfAm Est GFR (CKD-EPI)NonAf Random Glucose Calcium Total Bilirubin AST ALT Alkaline Phosphatase Total Protein Albumin RPR Titer Reactive 1:4 H D T.pallidum Ab (MHA) Previously reactive HIV 1&2 Antibody Screen HIV P24 Antigen LABS NOTED. RESULT OF ADMISSION RPR NOTED: REACTIVE 1:1 ([facility]ATP: PREVIOUSLY REACTIVE). PATIENT REPORTS THAT HE COMPLETED A FULL COURSE OF TREATMENT FOR SYPHILIS IN THE PAST. 01/14/19 15:51 Assessment: 01/14/19 15:29 WITHDRAWAL SYMPTOMS. POSITIVE RPR RESULT. Plan: CONTINUE DETOX. INCREASE DAILY PO WATER INTAKE. PRN PEPTO-BISMOL PO FOR DIARRHEA. ALTHOUGH VALIUM DETOX MEDICATION PROTOCOL ORDERED ON DETOX ADMISSION, PATIENT REPORTS THAT HE DOES NOT BELIEVE THAT VALIUM DETOX PROTOCOL HAS BEEN BENEFICIAL TO HIM THUS FAR AND REQUESTS TO HAVE LIBRIUM DETOX PROTOCOL, THIS MEDICATION HAS BEEN BENEFICIAL TO HIM AT TIMES IN WHICH HE HAS DETOXED IN THE PAST. DETOX MEDICATION PROTOCOL CHANGED TO LIBRIUM.
[2019-01-14] MEDS: traZODone HCL 50 MG TABLET (FP) PO SCH (22:33)
[2019-01-14] MEDS: THIAMINE HCL 100 MG TABLET (FP) PO SCH (22:33)
[2019-01-14] MEDS: DIVALPROEX SODIUM 500 MG TABLET E.C. PO SCH (22:33)
[2019-01-14] MEDS: QUEtiapine FUMARATE 50 MG TABLET PO SCH (22:33)
[2019-01-15] MEDS: chlordiazePOXIDE HCL 25 MG CAPSULE PO SCH (05:24)
[2019-01-15] MEDS ORDERED: diazePAM 5 MG TABLET PO ONE (06:00)
[2019-01-15] MEDS ORDERED: chlordiazePOXIDE HCL 10 MG CAPSULE PO PRN (09:30)
[2019-01-15] MEDS: PRENATAL VITAMINS W/ FOLIC ACID TABLET (FP) PO SCH (10:11)
[2019-01-15] MEDS: DIVALPROEX SODIUM 500 MG TABLET E.C. PO SCH ×2 (10:11→22:22)
[2019-01-15] MEDS: ASPIRIN 81 MG CHEWABLE TABLETS PO SCH (10:11)
[2019-01-15] MEDS: chlordiazePOXIDE HCL 10 MG CAPSULE PO SCH ×3 (10:11→22:22)
--- NOTE | 2019-01-15 14:24 | PN ---
S CIWA - CIWA Score Nausea/Vomitin Muscle Tremors: 2 Anxiety: 2 Agitation: 2 Paroxysmal Sweats: 1-Minimal Palms Moist Orientation: 0-Oriented Tacttile Disturbances: 1-Very Mild Itch/Numbness Auditory Disturbances: 1-Very Mild Visual Disturbances: 0-None Headache: 1-Very Mild CIWA-Ar Total Score: 12 BHS Progress Note (SOAP) Subjective: alert,irritable,anxious,interrupted sleep,tremor Objective: 01/15/19 14:23 Vital Signs Temperature 97.2 F L 01/15/19 13:06 Pulse Rate 62 01/15/19 13:06 Respiratory Rate 18 01/15/19 13:06 Blood Pressure 101/68 01/15/19 13:06 O2 Sat by Pulse Oximetry (%) Laboratory Last Values WBC 4.8 K/mm3 (4.0-10.0) 01/13/19 11:15 RBC 5.84 M/mm3 (4.00-5.60) H 01/13/19 11:15 Hgb 13.2 GM/dL (11.7-16.9) 01/13/19 11:15 Hct 42.7 % (35.4-49) D 01/13/19 11:15 MCV 73.1 fl (80-96) L 01/13/19 11:15 MCH 22.7 pg (25.7-33.7) L 01/13/19 11:15 MCHC 31.0 g/dl (32.0-35.9) L 01/13/19 11:15 RDW 16.0 % (11.9-15.9) H 01/13/19 11:15 Plt Count 197 K/MM3 (134-434) D 01/13/19 11:15 MPV 10.8 fl (7.5-11.1) 01/13/19 11:15 Sodium 138 mmol/L (136-145) 01/13/19 11:15 Potassium 4.4 mmol/L (3.5-5.1) 01/13/19 11:15 Chloride 104 mmol/L (98-107) 01/13/19 11:15 Carbon Dioxide 31 mmol/L (21-32) 01/13/19 11:15 Anion Gap 3 MMOL/L (8-16) L 01/13/19 11:15 BUN 7.8 mg/dL (7-18) 01/13/19 11:15 Creatinine 1.1 mg/dL (0.55-1.3) 01/13/19 11:15 Est GFR (CKD-EPI)AfAm 88.36 01/13/19 11:15 Est GFR (CKD-EPI)NonAf 76.24 01/13/19 11:15 Random Glucose 84 mg/dL (74-106) 01/13/19 11:15 Calcium 9.2 mg/dL (8.5-10.1) 01/13/19 11:15 Total Bilirubin 0.3 mg/dL (0.2-1) 01/13/19 11:15 AST 34 U/L (15-37) 01/13/19 11:15 ALT 38 U/L (13-61) 01/13/19 11:15 Alkaline Phosphatase 76 U/L (45-117) 01/13/19 11:15 Total Protein 8.0 g/dl (6.4-8.2) 01/13/19 11:15 Albumin 3.7 g/dl (3.4-5.0) 01/13/19 11:15 RPR Titer Reactive 1:4 (NONREACTIVE) H D 01/13/19 11:15 T.pallidum Ab (MHA) Previously reactive (NONREACTIVE) 01/13/19 11:15 HIV 1&2 Antibody Screen Negative 01/13/19 11:15 HIV P24 Antigen Negative 01/13/19 11:15 01/15/19 14:26 previously treated for syphilis Assessment: 01/15/19 14:27 withdrawal symptom Plan: continue detox,discharge in am
[2019-01-15] MEDS: QUEtiapine FUMARATE 50 MG TABLET PO SCH (22:22)
[2019-01-15] MEDS: THIAMINE HCL 100 MG TABLET (FP) PO SCH (22:22)
[2019-01-15] MEDS: traZODone HCL 50 MG TABLET (FP) PO SCH (22:22)
[2019-01-16 06:49] VITALS: BP 109/57; PULSE 63; TEMP 97.1
[2019-01-16] MEDS: chlordiazePOXIDE HCL 10 MG CAPSULE PO SCH (06:52)
--- NOTE | 2019-01-16 09:58 | PN ---
S CIWA - CIWA Score Nausea/Vomitin-No Nausea/No Vomiting Muscle Tremors: None Anxiety: 1-Mildly Anxious Agitation: 1-Slight > Activity Paroxysmal Sweats: No Perspiration Orientation: 0-Oriented Tacttile Disturbances: 0-None Auditory Disturbances: 0-None Visual Disturbances: 0-None Headache: 1-Very Mild CIWA-Ar Total Score: 3 BHS Progress Note (SOAP) Subjective: alert,no complaint Objective: 01/16/19 09:57 Vital Signs Temperature 97.1 F L 01/16/19 06:49 Pulse Rate 63 01/16/19 06:49 Respiratory Rate 18 01/16/19 06:49 Blood Pressure 109/57 L 01/16/19 06:49 O2 Sat by Pulse Oximetry (%) Assessment: 01/16/19 09:57 detox completed,no withdrawal symptom Plan: discharge today,follow up with after care program as arrangement
--- NOTE | 2019-01-16 10:02 | DS ---
[facility] Detox Discharge Summary Admission Date: 01/13/19 Discharge Date: 01/16/19 - History Present History: Alcohol Dependence, Cocaine Dependence Additional Comments: follow up with after [facility] program as arrangement and medical provider for medical problem Pertinent Past History: asthma history of syphilis - Physical Exam Results Vital Signs: Vital Signs Temperature 97.1 F L 01/16/19 06:49 Pulse Rate 63 01/16/19 06:49 Respiratory Rate 18 01/16/19 06:49 Blood Pressure 109/57 L 01/16/19 06:49 O2 Sat by Pulse Oximetry (%) Pertinent Admission Physical Exam Findings: withdrawal signs and symptom Laboratory Last Values WBC 4.8 K/mm3 (4.0-10.0) 01/13/19 11:15 RBC 5.84 M/mm3 (4.00-5.60) H 01/13/19 11:15 Hgb 13.2 GM/dL (11.7-16.9) 01/13/19 11:15 Hct 42.7 % (35.4-49) D 01/13/19 11:15 MCV 73.1 fl (80-96) L 01/13/19 11:15 MCH 22.7 pg (25.7-33.7) L 01/13/19 11:15 MCHC 31.0 g/dl (32.0-35.9) L 01/13/19 11:15 RDW 16.0 % (11.9-15.9) H 01/13/19 11:15 Plt Count 197 K/MM3 (134-434) D 01/13/19 11:15 MPV 10.8 fl (7.5-11.1) 01/13/19 11:15 Sodium 138 mmol/L (136-145) 01/13/19 11:15 Potassium 4.4 mmol/L (3.5-5.1) 01/13/19 11:15 Chloride 104 mmol/L (98-107) 01/13/19 11:15 Carbon Dioxide 31 mmol/L (21-32) 01/13/19 11:15 Anion Gap 3 MMOL/L (8-16) L 01/13/19 11:15 BUN 7.8 mg/dL (7-18) 01/13/19 11:15 Creatinine 1.1 mg/dL (0.55-1.3) 01/13/19 11:15 Est GFR (CKD-EPI)AfAm 88.36 01/13/19 11:15 Est GFR (CKD-EPI)NonAf 76.24 01/13/19 11:15 Random Glucose 84 mg/dL (74-106) 01/13/19 11:15 Calcium 9.2 mg/dL (8.5-10.1) 01/13/19 11:15 Total Bilirubin 0.3 mg/dL (0.2-1) 01/13/19 11:15 AST 34 U/L (15-37) 01/13/19 11:15 ALT 38 U/L (13-61) 01/13/19 11:15 Alkaline Phosphatase 76 U/L (45-117) 01/13/19 11:15 Total Protein 8.0 g/dl (6.4-8.2) 01/13/19 11:15 Albumin 3.7 g/dl (3.4-5.0) 01/13/19 11:15 RPR Titer Reactive 1:4 (NONREACTIVE) H D 01/13/19 11:15 T.pallidum Ab (MHA) Previously reactive (NONREACTIVE) 01/13/19 11:15 HIV 1&2 Antibody Screen Negative 01/13/19 11:15 HIV P24 Antigen Negative 01/13/19 11:15 treated for syphilisin the pat - Treatment Hospital Course: Detox Protocol Followed, Detoxed Safely, Responded well, Discharged Condition Good Patient has Accepted a Rehab Referral to: declined - Medication Discharge Medications: Ambulatory Orders Divalproex [Depakote -] 500 mg PO BID 07/08/17 traZODone HCL [Desyrel -] 50 mg PO HS #30 tablet 07/08/17 Albuterol Sulfate Inhaler - [Ventolin HFA Inhaler -] 2 inh PO Q4H PRN #1 inhaler 01/02/18 Aspirin [ASA -] 81 mg PO DAILY #30 tab.chew 01/02/18 Quetiapine Fumarate [Seroquel -] 50 mg PO HS #30 tablet 01/02/18 - AMA Did Patient Leave Against Medical Advice: No
[2019-01-16] MEDS ORDERED: chlordiazePOXIDE HCL 10 MG CAPSULE PO SCH (11:00)
== END 2019-01-16 06:54 | disposition home or self-care (01) | DRG 774 ==
LOC: YASAS 08:52 → Y3N 11:06
PROVIDERS: ADMIT Surgery; ATTEND Surgery
PROC: HZ2ZZZZ Detoxification Services for Substance Abuse Treatment (ICD-10-PCS; principal; 2019-01-13)
DX: F10.230 Alcohol dependence with withdrawal, uncomplicated (principal); F14.20 Cocaine dependence, uncomplicated; F17.210 Nicotine dependence, cigarettes, uncomplicated; F31.9 Bipolar disorder, unspecified; F41.9 Anxiety disorder, unspecified; F19.24 Other psychoactive substance dependence with psychoactive substance-induced mood disorder; F19.282 Other psychoactive substance dependence with psychoactive substance-induced sleep disorder; J44.9 Chronic obstructive pulmonary disease, unspecified; Z86.19 Personal history of other infectious and parasitic diseases; Z88.0 Allergy status to penicillin; Z91.19 Patient's noncompliance with other medical treatment and regimen
CPT/HCPCS: 36415; 71046-TC-FY; 80053; 85027; 86593; 86780; 87389

== ENCOUNTER 2019-06-05 16:22 | Inpatient (IN) | payer OTHER ==
[2019-06-05 19:19] VITALS: BMI 23.6
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
[2019-06-05] MEDS ORDERED: chlordiazePOXIDE HCL 25 MG CAPSULE PO PRN (20:56)
[2019-06-05] MEDS ORDERED: ACETAMINOPHEN 325 MG TABLET (FP) PO PRN ×2 (20:56)
[2019-06-05] MEDS ORDERED: MENTHOL/PHENOL 1 EACH UD MM PRN (20:56)
[2019-06-05] MEDS ORDERED: NICOTINE POLACRILEX 2 MG GUM BUC PRN (20:56)
[2019-06-05] MEDS ORDERED: BISMUTH SUBSALICYLATE 524 MG/30 ML UD PO PRN (20:56)
[2019-06-05] MEDS ORDERED: MAG HYDROX/AL HYDROX/SIMETH 30 ML UNIT-DOSE CUP PO PRN (20:56)
[2019-06-05] MEDS ORDERED: MAGNESIUM CITRATE 300 ML BOTTLE PO PRN (20:56)
[2019-06-05] MEDS ORDERED: MAGNESIUM HYDROX 2400MG/30ML ORAL SUSPENSION 30 ML CUP PO PRN (20:56)
[2019-06-05] MEDS ORDERED: IBUPROFEN 400 MG TABLET (FP) PO PRN (20:56)
[2019-06-05] MEDS ORDERED: guaiFENesin 200 MG/10 ML 10 ML UNIT-DOSE CUPS PO PRN (20:56)
[2019-06-05] MEDS ORDERED: ONDANSETRON *ODT* 4 MG TABLET SL PRN (20:56)
[2019-06-05] MEDS ORDERED: P-EPHED 60MG/TRIPROLIDI 2.5MG TABLET PO PRN (20:56)
[2019-06-05] MEDS ORDERED: DICYCLOMINE HCL 10 MG CAPSULE PO PRN (20:56)
[2019-06-05] MEDS ORDERED: hydrOXYzine PAMOATE 25 MG CAPSULE (FP) PO PRN (20:56)
[2019-06-05] MEDS ORDERED: METHOCARBAMOL 500 MG TABLET PO PRN (20:56)
[2019-06-05] MEDS: chlordiazePOXIDE HCL 25 MG CAPSULE PO SCH (22:46)
[2019-06-05] MEDS: THIAMINE HCL 100 MG TABLET (FP) PO SCH (22:46)
[2019-06-05] MEDS: MELATONIN 5 MG TABLETS PO PRN (22:47)
[2019-06-06] MEDS ORDERED: CEPHALEXIN MONOHYDRATE 500 MG CAPSULE (UD) PO SCH
[2019-06-06] MEDS: chlordiazePOXIDE HCL 25 MG CAPSULE PO SCH ×4 (06:17→23:05)
[2019-06-06 10:19] LABS: HEMATOCRIT 35.2 % (35.4-49); HEMOGLOBIN 11.3 GM/dL (11.7-16.9); MCHC 32.2 g/dl (32.0-35.9); MEAN CELL VOLUME 71.7 fl (80-96); MEAN PLT VOLUME 9.6 fl (7.5-11.1); PLATELET COUNT 148 K/MM3 (134-434); RBC 4.91 M/mm3 (4.00-5.60); RDW 14.2 % (11.9-15.9); WHITE BLOOD COUNT 6.2 K/mm3 (4.0-10.0)
[2019-06-06 10:37] LABS: ALBUMIN 3.1 g/dl (3.4-5.0); BILIRUBIN,TOTAL 0.2 mg/dL (0.2-1); BLOOD UREA NITROGEN 9.9 mg/dL (7-18); CALCIUM 8.1 mg/dL (8.5-10.1); CREATININE 0.8 mg/dL (0.55-1.3); POTASSIUM 3.8 mmol/L (3.5-5.1); TOT PROT 6.3 g/dl (6.4-8.2)
[2019-06-06] MEDS: PRENATAL VITAMINS W/ FOLIC ACID TABLET (FP) PO SCH (10:43)
[2019-06-06] MEDS: NICOTINE 14 MG/24 HOURS TOPICAL PATCH TD SCH (10:43)
--- NOTE | 2019-06-06 11:09 | PN ---
S CIWA - CIWA Score Nausea/Vomitin-No Nausea/No Vomiting Muscle Tremors: None Anxiety: 3 Agitation: 0-Normal Activity Paroxysmal Sweats: 3 Orientation: 0-Oriented Tacttile Disturbances: 0-None Auditory Disturbances: 0-None Visual Disturbances: 0-None Headache: 2-Mild CIWA-Ar Total Score: 8 BHS Progress Note (SOAP) Subjective: c/o sweats, anxiety, and headache. Objective: 06/06/19 11:08 Vital Signs 06/06/19 06/06/19 06/06/19 03:30 06:33 09:12 Temperature 98.8 F 97.1 F L Pulse Rate 63 65 Respiratory 18 18 16 Rate Blood Pressure 99/63 124/73 Laboratory Last Values WBC 6.2 K/mm3 (4.0-10.0) 06/06/19 07:55 RBC 4.91 M/mm3 (4.00-5.60) 06/06/19 07:55 Hgb 11.3 GM/dL (11.7-16.9) L 06/06/19 07:55 Hct 35.2 % (35.4-49) L D 06/06/19 07:55 MCV 71.7 fl (80-96) L 06/06/19 07:55 MCH 23.0 pg (25.7-33.7) L 06/06/19 07:55 MCHC 32.2 g/dl (32.0-35.9) 06/06/19 07:55 RDW 14.2 % (11.9-15.9) D 06/06/19 07:55 Plt Count 148 K/MM3 (134-434) D 06/06/19 07:55 MPV 9.6 fl (7.5-11.1) D 06/06/19 07:55 Sodium 139 mmol/L (136-145) 06/06/19 07:55 Potassium 3.8 mmol/L (3.5-5.1) 06/06/19 07:55 Chloride 108 mmol/L (98-107) H 06/06/19 07:55 Carbon Dioxide 27 mmol/L (21-32) 06/06/19 07:55 Anion Gap 4 MMOL/L (8-16) L 06/06/19 07:55 BUN 9.9 mg/dL (7-18) 06/06/19 07:55 Creatinine 0.8 mg/dL (0.55-1.3) 06/06/19 07:55 Est GFR (CKD-EPI)AfAm 118.20 06/06/19 07:55 Est GFR (CKD-EPI)NonAf 101.99 06/06/19 07:55 Random Glucose 86 mg/dL (74-106) 06/06/19 07:55 Calcium 8.1 mg/dL (8.5-10.1) L 06/06/19 07:55 Total Bilirubin 0.2 mg/dL (0.2-1) 06/06/19 07:55 AST 23 U/L (15-37) 06/06/19 07:55 ALT 24 U/L (13-61) 06/06/19 07:55 Alkaline Phosphatase 67 U/L (45-117) 06/06/19 07:55 Total Protein 6.3 g/dl (6.4-8.2) L 06/06/19 07:55 Albumin 3.1 g/dl (3.4-5.0) L 06/06/19 07:55 Labs noted. Assessment: 06/06/19 11:08 AOX3, in no acute respiratory distress. Full ROM, ambulating in the unit. Withdrawal symptoms. Plan: continue detox.
[2019-06-06] MEDS: CLINDAMYCIN HCL 150 MG CAPSULE (FP) PO SCH ×3 (13:06→23:23)
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
[2019-06-06] MEDS: CEPHALEXIN MONOHYDRATE 500 MG CAPSULE (UD) PO SCH (20:37)
[2019-06-06] MEDS ORDERED: DIVALPROEX SODIUM 250 MG TABLET E.C. PO SCH (22:00)
[2019-06-06] MEDS: traZODone HCL 50 MG TABLET (FP) PO SCH (23:04)
[2019-06-06] MEDS: THIAMINE HCL 100 MG TABLET (FP) PO SCH (23:05)
[2019-06-06] MEDS: QUEtiapine FUMARATE 50 MG TABLET PO SCH (23:05)
[2019-06-06] MEDS: MELATONIN 5 MG TABLETS PO PRN (23:52)
[2019-06-07] MEDS: CLINDAMYCIN HCL 150 MG CAPSULE (FP) PO SCH ×4 (06:17→23:41)
[2019-06-07] MEDS: chlordiazePOXIDE HCL 25 MG CAPSULE PO SCH ×4 (06:17→22:52)
[2019-06-07] MEDS: PRENATAL VITAMINS W/ FOLIC ACID TABLET (FP) PO SCH (10:38)
[2019-06-07] MEDS: NICOTINE 14 MG/24 HOURS TOPICAL PATCH TD SCH (10:38)
--- NOTE | 2019-06-07 12:28 | PN ---
S CIWA - CIWA Score Nausea/Vomitin-Mild Nausea/No Vomiting Muscle Tremors: 4-Moderate,w/Arms Extend Anxiety: 3 Agitation: 2 Paroxysmal Sweats: 1-Minimal Palms Moist Orientation: 0-Oriented Tacttile Disturbances: 1-Very Mild Itch/Numbness Auditory Disturbances: 0-None Visual Disturbances: 0-None Headache: 1-Very Mild CIWA-Ar Total Score: 13 BHS Progress Note (SOAP) Subjective: 53 years old male admitted on 06/05/19 for alcohol withdrawal sx management treated with librium detox regimen patient tolerated well ate breakfast ambulating on hallway social with peers in day room discuss aftercare with staff [facility] Objective: 06/07/19 12:29 Vital Signs Temperature 97.3 F L 06/07/19 09:47 Pulse Rate 72 06/07/19 09:47 Respiratory Rate 18 06/07/19 09:47 Blood Pressure 98/61 06/07/19 09:47 O2 Sat by Pulse Oximetry (%) Laboratory Last Values WBC 6.2 K/mm3 (4.0-10.0) 06/06/19 07:55 RBC 4.91 M/mm3 (4.00-5.60) 06/06/19 07:55 Hgb 11.3 GM/dL (11.7-16.9) L 06/06/19 07:55 Hct 35.2 % (35.4-49) L D 06/06/19 07:55 MCV 71.7 fl (80-96) L 06/06/19 07:55 MCH 23.0 pg (25.7-33.7) L 06/06/19 07:55 MCHC 32.2 g/dl (32.0-35.9) 06/06/19 07:55 RDW 14.2 % (11.9-15.9) D 06/06/19 07:55 Plt Count 148 K/MM3 (134-434) D 06/06/19 07:55 MPV 9.6 fl (7.5-11.1) D 06/06/19 07:55 Sodium 139 mmol/L (136-145) 06/06/19 07:55 Potassium 3.8 mmol/L (3.5-5.1) 06/06/19 07:55 Chloride 108 mmol/L (98-107) H 06/06/19 07:55 Carbon Dioxide 27 mmol/L (21-32) 06/06/19 07:55 Anion Gap 4 MMOL/L (8-16) L 06/06/19 07:55 BUN 9.9 mg/dL (7-18) 06/06/19 07:55 Creatinine 0.8 mg/dL (0.55-1.3) 06/06/19 07:55 Est GFR (CKD-EPI)AfAm 118.20 06/06/19 07:55 Est GFR (CKD-EPI)NonAf 101.99 06/06/19 07:55 Random Glucose 86 mg/dL (74-106) 06/06/19 07:55 Calcium 8.1 mg/dL (8.5-10.1) L 06/06/19 07:55 Total Bilirubin 0.2 mg/dL (0.2-1) 06/06/19 07:55 AST 23 U/L (15-37) 06/06/19 07:55 ALT 24 U/L (13-61) 06/06/19 07:55 Alkaline Phosphatase 67 U/L (45-117) 06/06/19 07:55 Total Protein 6.3 g/dl (6.4-8.2) L 06/06/19 07:55 Albumin 3.1 g/dl (3.4-5.0) L 06/06/19 07:55 lab noted Assessment: 06/07/19 12:29 alcohol withdrawal sx Plan: continue librium detox regimen
[2019-06-07] MEDS: traZODone HCL 50 MG TABLET (FP) PO SCH (21:45)
[2019-06-07] MEDS: QUEtiapine FUMARATE 50 MG TABLET PO SCH (21:45)
[2019-06-07] MEDS: THIAMINE HCL 100 MG TABLET (FP) PO SCH (21:46)
[2019-06-08] MEDS ORDERED: chlordiazePOXIDE HCL 10 MG CAPSULE PO PRN
[2019-06-08] MEDS: chlordiazePOXIDE HCL 10 MG CAPSULE PO SCH ×4 (07:11→21:59)
[2019-06-08] MEDS: CLINDAMYCIN HCL 150 MG CAPSULE (FP) PO SCH ×4 (07:11→23:36)
--- NOTE | 2019-06-08 09:34 | PN ---
[facility] CIWA - CIWA Score Nausea/Vomitin-Mild Nausea/No Vomiting Muscle Tremors: 3 Anxiety: 3 Agitation: 1-Slight > Activity Paroxysmal Sweats: 2 Orientation: 0-Oriented Tacttile Disturbances: 1-Very Mild Itch/Numbness Auditory Disturbances: 1-Very Mild Visual Disturbances: 0-None Headache: 0-None Present CIWA-Ar Total Score: 12 S Progress Note (SOAP) Subjective: 53 years old male admitted on 06/05/19 for alcohol withdrawal sx management treated with librium detox regimen resting on bed limited conversation with staff recommend the patient to attend group and meeting Objective: 06/08/19 09:35 Vital Signs Temperature 97.0 F L 06/08/19 09:22 Pulse Rate 70 06/08/19 09:22 Respiratory Rate 18 06/08/19 09:22 Blood Pressure 98/53 L 06/08/19 09:22 O2 Sat by Pulse Oximetry (%) Laboratory Last Values WBC 6.2 K/mm3 (4.0-10.0) 06/06/19 07:55 RBC 4.91 M/mm3 (4.00-5.60) 06/06/19 07:55 Hgb 11.3 GM/dL (11.7-16.9) L 06/06/19 07:55 Hct 35.2 % (35.4-49) L D 06/06/19 07:55 MCV 71.7 fl (80-96) L 06/06/19 07:55 MCH 23.0 pg (25.7-33.7) L 06/06/19 07:55 MCHC 32.2 g/dl (32.0-35.9) 06/06/19 07:55 RDW 14.2 % (11.9-15.9) D 06/06/19 07:55 Plt Count 148 K/MM3 (134-434) D 06/06/19 07:55 MPV 9.6 fl (7.5-11.1) D 06/06/19 07:55 Sodium 139 mmol/L (136-145) 06/06/19 07:55 Potassium 3.8 mmol/L (3.5-5.1) 06/06/19 07:55 Chloride 108 mmol/L (98-107) H 06/06/19 07:55 Carbon Dioxide 27 mmol/L (21-32) 06/06/19 07:55 Anion Gap 4 MMOL/L (8-16) L 06/06/19 07:55 BUN 9.9 mg/dL (7-18) 06/06/19 07:55 Creatinine 0.8 mg/dL (0.55-1.3) 06/06/19 07:55 Est GFR (CKD-EPI)AfAm 118.20 06/06/19 07:55 Est GFR (CKD-EPI)NonAf 101.99 06/06/19 07:55 Random Glucose 86 mg/dL (74-106) 06/06/19 07:55 Calcium 8.1 mg/dL (8.5-10.1) L 06/06/19 07:55 Total Bilirubin 0.2 mg/dL (0.2-1) 06/06/19 07:55 AST 23 U/L (15-37) 06/06/19 07:55 ALT 24 U/L (13-61) 06/06/19 07:55 Alkaline Phosphatase 67 U/L (45-117) 06/06/19 07:55 Total Protein 6.3 g/dl (6.4-8.2) L 06/06/19 07:55 Albumin 3.1 g/dl (3.4-5.0) L 06/06/19 07:55 06/08/19 09:39 lab noted Assessment: 06/08/19 09:39 alcohol withdrawal sx Plan: continue librium detox regimen
[2019-06-08] MEDS: PRENATAL VITAMINS W/ FOLIC ACID TABLET (FP) PO SCH (10:11)
[2019-06-08] MEDS: NICOTINE 14 MG/24 HOURS TOPICAL PATCH TD SCH (10:11)
[2019-06-08 16:45] LABS: URINE APPEARANCE CLEAR; URINE BILIRUBIN NEGATIVE (NEGATIVE); URINE COLOR YELLOW; URINE GLUCOSE (UA) NEGATIVE (NEGATIVE); URINE KETONE NEGATIVE (NEGATIVE); URINE LEUK ESTERASE NEGATIVE (NEGATIVE); URINE NITRITE NEGATIVE (NEGATIVE); URINE PROTEIN NEGATIVE (NEGATIVE); URINE UROBILINOGEN 0.2 mg/dL (0.2-1.0)
[2019-06-08] MEDS: QUEtiapine FUMARATE 50 MG TABLET PO SCH (21:59)
[2019-06-08] MEDS: traZODone HCL 50 MG TABLET (FP) PO SCH (21:59)
[2019-06-08] MEDS: THIAMINE HCL 100 MG TABLET (FP) PO SCH (21:59)
[2019-06-09] MEDS ORDERED: chlordiazePOXIDE HCL 10 MG CAPSULE PO SCH (05:00)
[2019-06-09] MEDS: CLINDAMYCIN HCL 150 MG CAPSULE (FP) PO SCH ×2 (08:05→12:50)
[2019-06-09 09:22] VITALS: BP 104/61; PULSE 76; TEMP 98.4
[2019-06-09] MEDS: NICOTINE 14 MG/24 HOURS TOPICAL PATCH TD SCH (10:48)
[2019-06-09] MEDS: PRENATAL VITAMINS W/ FOLIC ACID TABLET (FP) PO SCH (10:48)
--- NOTE | 2019-06-09 11:36 | PN ---
S CIWA - CIWA Score Nausea/Vomitin-No Nausea/No Vomiting Muscle Tremors: 2 Anxiety: 2 Agitation: 2 Paroxysmal Sweats: 1-Minimal Palms Moist Orientation: 0-Oriented Tacttile Disturbances: 0-None Auditory Disturbances: 0-None Visual Disturbances: 0-None Headache: 0-None Present CIWA-Ar Total Score: 7 S Progress Note (SOAP) Subjective: 53 years old male admitted on 06/05/19 for alcohol withdrawal sx management tyreated with librium detox regimen requests to be seen by psychiatrist due to taking depakote 500 mg po bid for bipolar disorder and works well with him psychiatrist referral Objective: 06/09/19 11:40 Vital Signs Temperature 98.4 F 06/09/19 09:21 Pulse Rate 76 06/09/19 09:21 Respiratory Rate 18 06/09/19 09:21 Blood Pressure 104/61 06/09/19 09:21 O2 Sat by Pulse Oximetry (%) Laboratory Last Values WBC 6.2 K/mm3 (4.0-10.0) 06/06/19 07:55 RBC 4.91 M/mm3 (4.00-5.60) 06/06/19 07:55 Hgb 11.3 GM/dL (11.7-16.9) L 06/06/19 07:55 Hct 35.2 % (35.4-49) L D 06/06/19 07:55 MCV 71.7 fl (80-96) L 06/06/19 07:55 MCH 23.0 pg (25.7-33.7) L 06/06/19 07:55 MCHC 32.2 g/dl (32.0-35.9) 06/06/19 07:55 RDW 14.2 % (11.9-15.9) D 06/06/19 07:55 Plt Count 148 K/MM3 (134-434) D 06/06/19 07:55 MPV 9.6 fl (7.5-11.1) D 06/06/19 07:55 Sodium 139 mmol/L (136-145) 06/06/19 07:55 Potassium 3.8 mmol/L (3.5-5.1) 06/06/19 07:55 Chloride 108 mmol/L (98-107) H 06/06/19 07:55 Carbon Dioxide 27 mmol/L (21-32) 06/06/19 07:55 Anion Gap 4 MMOL/L (8-16) L 06/06/19 07:55 BUN 9.9 mg/dL (7-18) 06/06/19 07:55 Creatinine 0.8 mg/dL (0.55-1.3) 06/06/19 07:55 Est GFR (CKD-EPI)AfAm 118.20 06/06/19 07:55 Est GFR (CKD-EPI)NonAf 101.99 06/06/19 07:55 Random Glucose 86 mg/dL (74-106) 06/06/19 07:55 Calcium 8.1 mg/dL (8.5-10.1) L 06/06/19 07:55 Total Bilirubin 0.2 mg/dL (0.2-1) 06/06/19 07:55 AST 23 U/L (15-37) 06/06/19 07:55 ALT 24 U/L (13-61) 06/06/19 07:55 Alkaline Phosphatase 67 U/L (45-117) 06/06/19 07:55 Total Protein 6.3 g/dl (6.4-8.2) L 06/06/19 07:55 Albumin 3.1 g/dl (3.4-5.0) L 06/06/19 07:55 Urine Color Yellow 06/08/19 10:55 Urine Appearance Clear 06/08/19 10:55 Urine pH 6.0 (5.0-8.0) 06/08/19 10:55 Ur Specific [place] 1.016 (1.010-1.035) 06/08/19 10:55 Urine Protein Negative (NEGATIVE) 06/08/19 10:55 Urine Glucose (UA) Negative (NEGATIVE) 06/08/19 10:55 Urine Ketones Negative (NEGATIVE) 06/08/19 10:55 Urine Blood Negative (NEGATIVE) 06/08/19 10:55 Urine Nitrite Negative (NEGATIVE) 06/08/19 10:55 Urine Bilirubin Negative (NEGATIVE) 06/08/19 10:55 Urine Urobilinogen 0.2 mg/dL (0.2-1.0) 06/08/19 10:55 Ur Leukocyte Esterase Negative (NEGATIVE) 06/08/19 10:55 Valproic Acid 5.0 ug/mL (50-100) L 06/08/19 14:00 lab noted Assessment: 06/09/19 11:40 alcohol withdrawal sx management Plan: librium detox regimen
--- NOTE | 2019-06-09 12:22 | DS ---
[facility] Detox Discharge Summary Admission Date: 06/05/19 Discharge Date: 06/09/19 - History Present History: Alcohol Dependence Additional Comments: 53 years old male admitted on 06/05/19 for alcohol withdrawal sx management treated with librium detox regimen patient is alert oriented x 3 cardiac s1s2 regular rate rhythm respiratory clear lung bilaterally on auscultation extremities full range of motion - Physical Exam Results Vital Signs: Vital Signs Temperature 98.4 F 06/09/19 09:21 Pulse Rate 76 06/09/19 09:21 Respiratory Rate 18 06/09/19 09:21 Blood Pressure 104/61 06/09/19 09:21 O2 Sat by Pulse Oximetry (%) Pertinent Admission Physical Exam Findings: alcohol withdrawal sx Laboratory Last Values WBC 6.2 K/mm3 (4.0-10.0) 06/06/19 07:55 RBC 4.91 M/mm3 (4.00-5.60) 06/06/19 07:55 Hgb 11.3 GM/dL (11.7-16.9) L 06/06/19 07:55 Hct 35.2 % (35.4-49) L D 06/06/19 07:55 MCV 71.7 fl (80-96) L 06/06/19 07:55 MCH 23.0 pg (25.7-33.7) L 06/06/19 07:55 MCHC 32.2 g/dl (32.0-35.9) 06/06/19 07:55 RDW 14.2 % (11.9-15.9) D 06/06/19 07:55 Plt Count 148 K/MM3 (134-434) D 06/06/19 07:55 MPV 9.6 fl (7.5-11.1) D 06/06/19 07:55 Sodium 139 mmol/L (136-145) 06/06/19 07:55 Potassium 3.8 mmol/L (3.5-5.1) 06/06/19 07:55 Chloride 108 mmol/L (98-107) H 06/06/19 07:55 Carbon Dioxide 27 mmol/L (21-32) 06/06/19 07:55 Anion Gap 4 MMOL/L (8-16) L 06/06/19 07:55 BUN 9.9 mg/dL (7-18) 06/06/19 07:55 Creatinine 0.8 mg/dL (0.55-1.3) 06/06/19 07:55 Est GFR (CKD-EPI)AfAm 118.20 06/06/19 07:55 Est GFR (CKD-EPI)NonAf 101.99 06/06/19 07:55 Random Glucose 86 mg/dL (74-106) 06/06/19 07:55 Calcium 8.1 mg/dL (8.5-10.1) L 06/06/19 07:55 Total Bilirubin 0.2 mg/dL (0.2-1) 06/06/19 07:55 AST 23 U/L (15-37) 06/06/19 07:55 ALT 24 U/L (13-61) 06/06/19 07:55 Alkaline Phosphatase 67 U/L (45-117) 06/06/19 07:55 Total Protein 6.3 g/dl (6.4-8.2) L 06/06/19 07:55 Albumin 3.1 g/dl (3.4-5.0) L 06/06/19 07:55 Urine Color Yellow 06/08/19 10:55 Urine Appearance Clear 06/08/19 10:55 Urine pH 6.0 (5.0-8.0) 06/08/19 10:55 Ur Specific [place] 1.016 (1.010-1.035) 06/08/19 10:55 Urine Protein Negative (NEGATIVE) 06/08/19 10:55 Urine Glucose (UA) Negative (NEGATIVE) 06/08/19 10:55 Urine Ketones Negative (NEGATIVE) 06/08/19 10:55 Urine Blood Negative (NEGATIVE) 06/08/19 10:55 Urine Nitrite Negative (NEGATIVE) 06/08/19 10:55 Urine Bilirubin Negative (NEGATIVE) 06/08/19 10:55 Urine Urobilinogen 0.2 mg/dL (0.2-1.0) 06/08/19 10:55 Ur Leukocyte Esterase Negative (NEGATIVE) 06/08/19 10:55 Valproic Acid 5.0 ug/mL (50-100) L 06/08/19 14:00 lab noted - Treatment Hospital Course: Detox Protocol Followed, Detoxed Safely, Responded well, Discharged Condition Good, Rehab Referral Accepted Patient has Accepted a Rehab Referral to: [facility] - Medication Discharge Medications: Ambulatory Orders Divalproex [Depakote -] 500 mg PO BID 07/08/17 traZODone HCL [Desyrel -] 50 mg PO HS #30 tablet 07/08/17 Albuterol Sulfate Inhaler - [Ventolin HFA Inhaler -] 2 inh PO Q4H PRN #1 inhaler 01/02/18 Aspirin [ASA -] 81 mg PO DAILY #30 tab.chew 01/02/18 Quetiapine Fumarate [Seroquel -] 50 mg PO HS #30 tablet 01/02/18 - Diagnosis (1) Alcohol dependence with uncomplicated withdrawal Current Visit: Yes Status: Acute (2) COPD (chronic obstructive pulmonary disease) Current Visit: Yes Status: Chronic Qualifiers: Chronic bronchitis type: unspecified (3) Nicotine dependence Current Visit: Yes Status: Acute Qualifiers: Nicotine product type: cigarettes Substance use status: in withdrawal Qualified Code(s): F17.213 - Nicotine dependence, cigarettes, with withdrawal (4) Substance induced mood disorder Current Visit: Yes Status: Suspected (5) Weight loss Current Visit: Yes Status: Acute (6) Asthma Current Visit: Yes Status: Chronic Qualifiers: Asthma severity: unspecified severity Asthma persistence: unspecified Asthma complication type: uncomplicated Qualified Code(s): J45.909 - Unspecified asthma, uncomplicated - AMA Did Patient Leave Against Medical Advice: No CIWA Score - CIWA Score Nausea/Vomitin-No Nausea/No Vomiting Muscle Tremors: 2 Anxiety: 2 Agitation: 1-Slight > Activity Paroxysmal Sweats: 1-Minimal Palms Moist Orientation: 0-Oriented Tacttile Disturbances: 0-None Auditory Disturbances: 0-None Visual Disturbances: 0-None Headache: 0-None Present CIWA-Ar Total Score: 6
[2019-06-10] MEDS ORDERED: chlordiazePOXIDE HCL 10 MG CAPSULE PO ONE (05:00)
== END 2019-06-09 12:55 | disposition home or self-care (01) | DRG 774 ==
LOC: YASAS 16:22 → Y3N 22:04
PROVIDERS: ADMIT Allergy & Immunology; ATTEND Allergy & Immunology
PROC: HZ2ZZZZ Detoxification Services for Substance Abuse Treatment (ICD-10-PCS; principal; 2019-06-05)
DX: F10.230 Alcohol dependence with withdrawal, uncomplicated (principal); F14.20 Cocaine dependence, uncomplicated; F17.213 Nicotine dependence, cigarettes, with withdrawal; F19.24 Other psychoactive substance dependence with psychoactive substance-induced mood disorder; F31.9 Bipolar disorder, unspecified; G47.00 Insomnia, unspecified; J44.9 Chronic obstructive pulmonary disease, unspecified; R63.4 Abnormal weight loss; D64.9 Anemia, unspecified; K21.9 Gastro-esophageal reflux disease without esophagitis; L02.818 Cutaneous abscess of other sites; Z87.438 Personal history of other diseases of male genital organs; Z91.19 Patient's noncompliance with other medical treatment and regimen; Z88.0 Allergy status to penicillin
CPT/HCPCS: 36415; 80053; 80164; 81003; 85027

== ENCOUNTER 2019-08-17 16:17 | Inpatient (IN) | payer OTHER ==
[2019-08-17 17:21] VITALS: BMI 22.6
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
[2019-08-17] MEDS ORDERED: ACETAMINOPHEN 325 MG TABLET (FP) PO PRN ×2 (18:25)
[2019-08-17] MEDS ORDERED: MELATONIN 5 MG TABLETS PO PRN (18:25)
[2019-08-17] MEDS ORDERED: NICOTINE POLACRILEX 2 MG GUM BUC PRN (18:25)
[2019-08-17] MEDS ORDERED: BISMUTH SUBSALICYLATE 524 MG/30 ML UD PO PRN (18:25)
[2019-08-17] MEDS ORDERED: chlordiazePOXIDE HCL 25 MG CAPSULE PO PRN (18:25)
[2019-08-17] MEDS ORDERED: hydrOXYzine PAMOATE 25 MG CAPSULE (FP) PO PRN (18:25)
[2019-08-17] MEDS ORDERED: MAGNESIUM HYDROX 2400MG/30ML ORAL SUSPENSION 30 ML CUP PO PRN (18:25)
[2019-08-17] MEDS ORDERED: IBUPROFEN 400 MG TABLET (FP) PO PRN (18:25)
[2019-08-17] MEDS ORDERED: METHOCARBAMOL 500 MG TABLET PO PRN (18:25)
[2019-08-17] MEDS ORDERED: MAG HYDROX/AL HYDROX/SIMETH 30 ML UNIT-DOSE CUP PO PRN (18:25)
[2019-08-17] MEDS ORDERED: MAGNESIUM CITRATE 300 ML BOTTLE PO PRN (18:25)
[2019-08-17] MEDS: THIAMINE HCL 100 MG TABLET (FP) PO SCH (22:27)
[2019-08-17] MEDS: chlordiazePOXIDE HCL 25 MG CAPSULE PO SCH (22:28)
[2019-08-18] MEDS: chlordiazePOXIDE HCL 25 MG CAPSULE PO SCH ×4 (06:14→23:20)
[2019-08-18] MEDS: ASPIRIN COATED 81 MG TABLET.EC PO SCH (10:09)
[2019-08-18] MEDS: PRENATAL VITAMINS W/ FOLIC ACID TABLET (FP) PO SCH (10:09)
[2019-08-18] MEDS: NICOTINE 14 MG/24 HOURS TOPICAL PATCH TD SCH (10:12)
--- NOTE | 2019-08-18 10:14 | PN ---
[facility] CIWA - CIWA Score Nausea/Vomitin Muscle Tremors: 4-Moderate,w/Arms Extend Anxiety: 4-Mod. Anxious/Guarded Agitation: 0-Normal Activity Paroxysmal Sweats: 2 Orientation: 0-Oriented Tacttile Disturbances: 0-None Auditory Disturbances: 0-None Visual Disturbances: 1-Very Mild Sensitivity Headache: 2-Mild CIWA-Ar Total Score: 15 BHS Progress Note (SOAP) Subjective: 54 years old male admitted on 08/17/19 for alcohol withdrawal sx management treating with librium detox regimen feeling ok today but tired prefers to stay in bed today Objective: 08/18/19 10:15 Vital Signs Temperature 98.2 F 08/18/19 09:03 Pulse Rate 56 L 08/18/19 09:03 Respiratory Rate 18 08/18/19 09:03 Blood Pressure 92/60 08/18/19 09:03 O2 Sat by Pulse Oximetry (%) 08/18/19 10:15 lab pending Assessment: 08/18/19 10:15 alcohol withdrawal Plan: librium regiment
[2019-08-18 10:56] LABS: BILIRUBIN,TOTAL 0.3 mg/dL (0.2-1); BLOOD UREA NITROGEN 11.1 mg/dL (7-18); CALCIUM 7.9 mg/dL (8.5-10.1); POTASSIUM 3.7 mmol/L (3.5-5.1); TOT PROT 6.2 g/dl (6.4-8.2)
[2019-08-18 10:57] LABS: HEMATOCRIT 36.9 % (35.4-49); HEMOGLOBIN 11.8 GM/dL (11.7-16.9); MCH 23.3 pg (25.7-33.7); MCHC 31.9 g/dl (32.0-35.9); MEAN PLT VOLUME 9.2 fl (7.5-11.1); PLATELET COUNT 214 K/MM3 (134-434); RBC 5.06 M/mm3 (4.00-5.60); RDW 15.8 % (11.9-15.9)
[2019-08-18 12:03] LABS: RPR REACTIVE 1:2 (NONREACTIVE)
[2019-08-18 12:04] LABS: TREPONEMA ANTIBODY PREVIOUSLY REACTIVE (NONREACTIVE)
--- NOTE | 2019-08-18 14:03 | CONSULT ---
[facility] Psychiatric Consult - Data Date of interview: 08/18/19 Admission source: [facility] Identifying data: Patient is approached at bedside for psychiatric evaluation. Mr Aiken declines. Nursing staff is made aware.
[2019-08-18] MEDS: THIAMINE HCL 100 MG TABLET (FP) PO SCH (23:21)
[2019-08-19] MEDS: chlordiazePOXIDE HCL 25 MG CAPSULE PO SCH ×4 (06:26→22:21)
[2019-08-19] MEDS: ASPIRIN COATED 81 MG TABLET.EC PO SCH (10:13)
[2019-08-19] MEDS: NICOTINE 14 MG/24 HOURS TOPICAL PATCH TD SCH (10:14)
[2019-08-19] MEDS: PRENATAL VITAMINS W/ FOLIC ACID TABLET (FP) PO SCH (10:14)
--- NOTE | 2019-08-19 11:23 | EKG ---
Test Reason : Blood Pressure : / mmHG Vent. Rate : 061 BPM Atrial Rate : 061 BPM P-R Int : 118 ms QRS Dur : 084 ms QT Int : 428 ms P-R-T Axes : 056 020 046 degrees QTc Int : 430 ms NORMAL SINUS RHYTHM NORMAL ECG WHEN COMPARED WITH ECG OF 26-MAR-2018 18:33, NO SIGNIFICANT CHANGE WAS FOUND Confirmed by Antoni Moore MD ([id number]) on 08/19/2019 11:23:25 AM Referred By: Kendell Spears Confirmed By:Antoni Moore MD
--- NOTE | 2019-08-19 11:46 | PN ---
[facility] CIWA - CIWA Score Nausea/Vomitin-Mild Nausea/No Vomiting Muscle Tremors: 2 Anxiety: 3 Agitation: 1-Slight > Activity Paroxysmal Sweats: 2 Orientation: 0-Oriented Tacttile Disturbances: 0-None Auditory Disturbances: 0-None Visual Disturbances: 0-None Headache: 2-Mild CIWA-Ar Total Score: 11 S Progress Note (SOAP) Subjective: 54 years old male admitted on 08/17/19 for alcohol withdrawal sx management treating sherri dsouza detox regiment feeling ok today continue with low bp "My usual blood pressure" denies dizziness tremor but steady gait mild anxiety Objective: 08/19/19 11:46 Vital Signs Temperature 97.1 F L 08/19/19 08:49 Pulse Rate 72 08/19/19 08:49 Respiratory Rate 18 08/19/19 08:49 Blood Pressure 102/68 08/19/19 08:49 O2 Sat by Pulse Oximetry (%) 08/19/19 11:46 Laboratory Last Values WBC 4.0 K/mm3 (4.0-10.0) 08/18/19 07:45 RBC 5.06 M/mm3 (4.00-5.60) 08/18/19 07:45 Hgb 11.8 GM/dL (11.7-16.9) 08/18/19 07:45 Hct 36.9 % (35.4-49) 08/18/19 07:45 MCV 73.0 fl (80-96) L 08/18/19 07:45 MCH 23.3 pg (25.7-33.7) L 08/18/19 07:45 MCHC 31.9 g/dl (32.0-35.9) L 08/18/19 07:45 RDW 15.8 % (11.9-15.9) D 08/18/19 07:45 Plt Count 214 K/MM3 (134-434) D 08/18/19 07:45 MPV 9.2 fl (7.5-11.1) 08/18/19 07:45 Sodium 140 mmol/L (136-145) 08/18/19 07:45 Potassium 3.7 mmol/L (3.5-5.1) 08/18/19 07:45 Chloride 106 mmol/L (98-107) 08/18/19 07:45 Carbon Dioxide 28 mmol/L (21-32) 08/18/19 07:45 Anion Gap 6 MMOL/L (8-16) L 08/18/19 07:45 BUN 11.1 mg/dL (7-18) 08/18/19 07:45 Creatinine 1.0 mg/dL (0.55-1.3) 08/18/19 07:45 Est GFR (CKD-EPI)AfAm 98.46 08/18/19 07:45 Est GFR (CKD-EPI)NonAf 84.95 08/18/19 07:45 Random Glucose 107 mg/dL (74-106) H 08/18/19 07:45 Calcium 7.9 mg/dL (8.5-10.1) L 08/18/19 07:45 Total Bilirubin 0.3 mg/dL (0.2-1) 08/18/19 07:45 AST 32 U/L (15-37) 08/18/19 07:45 ALT 27 U/L (13-61) 08/18/19 07:45 Alkaline Phosphatase 57 U/L (45-117) 08/18/19 07:45 Total Protein 6.2 g/dl (6.4-8.2) L 08/18/19 07:45 Albumin 3.0 g/dl (3.4-5.0) L 08/18/19 07:45 RPR Titer Reactive 1:2 (NONREACTIVE) H D 08/18/19 07:45 T.pallidum Ab (MHA) Previously reactive (NONREACTIVE) 08/18/19 07:45 lab noted low ca++ ca++ supplement reports history of syphilis treated Assessment: 08/19/19 11:48 alcohol withdrawal Plan: librium regiment
[2019-08-19] MEDS ORDERED: CALCIUM 250MG/VIT-D 125 UNITS 1 COMBO TABLET PO SCH (12:00)
[2019-08-19] MEDS: THIAMINE HCL 100 MG TABLET (FP) PO SCH (22:21)
[2019-08-19] MEDS: MENTHOL/PHENOL 1 EACH UD MM PRN (22:23)
[2019-08-20] MEDS ORDERED: chlordiazePOXIDE HCL 10 MG CAPSULE PO PRN
[2019-08-20] MEDS: chlordiazePOXIDE HCL 10 MG CAPSULE PO SCH ×2 (07:06→11:01)
[2019-08-20] MEDS: ASPIRIN COATED 81 MG TABLET.EC PO SCH (11:01)
[2019-08-20] MEDS: MENTHOL/PHENOL 1 EACH UD MM PRN ×2 (11:01→14:15)
[2019-08-20] MEDS: NICOTINE 14 MG/24 HOURS TOPICAL PATCH TD SCH (11:01)
[2019-08-20] MEDS: PRENATAL VITAMINS W/ FOLIC ACID TABLET (FP) PO SCH (11:02)
--- NOTE | 2019-08-20 11:37 | PN ---
S CIWA - CIWA Score Nausea/Vomitin-No Nausea/No Vomiting Muscle Tremors: 2 Anxiety: 2 Agitation: 1-Slight > Activity Paroxysmal Sweats: 1-Minimal Palms Moist Orientation: 0-Oriented Tacttile Disturbances: 0-None Auditory Disturbances: 0-None Visual Disturbances: 1-Very Mild Sensitivity Headache: 0-None Present CIWA-Ar Total Score: 7 BHS Progress Note (SOAP) Subjective: 54 years old male admitted on 08/17/19 for alcohol withdrawal sx management treating with librium detox regiment refuses two doses of librium 10 mg modifies librium dosage and discharge date patient refuses psychiatrist evaluation [employer] Pilot informed patient has informed that he is been routine discharged tomorrow Objective: 08/20/19 11:43 Vital Signs Temperature 98.1 F 08/20/19 09:02 Pulse Rate 71 08/20/19 09:02 Respiratory Rate 18 08/20/19 09:02 Blood Pressure 108/64 08/20/19 09:02 O2 Sat by Pulse Oximetry (%) Laboratory Last Values WBC 4.0 K/mm3 (4.0-10.0) 08/18/19 07:45 RBC 5.06 M/mm3 (4.00-5.60) 08/18/19 07:45 Hgb 11.8 GM/dL (11.7-16.9) 08/18/19 07:45 Hct 36.9 % (35.4-49) 08/18/19 07:45 MCV 73.0 fl (80-96) L 08/18/19 07:45 MCH 23.3 pg (25.7-33.7) L 08/18/19 07:45 MCHC 31.9 g/dl (32.0-35.9) L 08/18/19 07:45 RDW 15.8 % (11.9-15.9) D 08/18/19 07:45 Plt Count 214 K/MM3 (134-434) D 08/18/19 07:45 MPV 9.2 fl (7.5-11.1) 08/18/19 07:45 Sodium 140 mmol/L (136-145) 08/18/19 07:45 Potassium 3.7 mmol/L (3.5-5.1) 08/18/19 07:45 Chloride 106 mmol/L (98-107) 08/18/19 07:45 Carbon Dioxide 28 mmol/L (21-32) 08/18/19 07:45 Anion Gap 6 MMOL/L (8-16) L 08/18/19 07:45 BUN 11.1 mg/dL (7-18) 08/18/19 07:45 Creatinine 1.0 mg/dL (0.55-1.3) 08/18/19 07:45 Est GFR (CKD-EPI)AfAm 98.46 08/18/19 07:45 Est GFR (CKD-EPI)NonAf 84.95 08/18/19 07:45 Random Glucose 107 mg/dL (74-106) H 08/18/19 07:45 Calcium 7.9 mg/dL (8.5-10.1) L 08/18/19 07:45 Total Bilirubin 0.3 mg/dL (0.2-1) 08/18/19 07:45 AST 32 U/L (15-37) 08/18/19 07:45 ALT 27 U/L (13-61) 08/18/19 07:45 Alkaline Phosphatase 57 U/L (45-117) 08/18/19 07:45 Total Protein 6.2 g/dl (6.4-8.2) L 08/18/19 07:45 Albumin 3.0 g/dl (3.4-5.0) L 08/18/19 07:45 RPR Titer Reactive 1:2 (NONREACTIVE) H D 08/18/19 07:45 T.pallidum Ab (MHA) Previously reactive (NONREACTIVE) 08/18/19 07:45 lab noted Assessment: 08/20/19 11:43 alcohol withdrawal Plan: librium regiment
--- NOTE | 2019-08-20 12:48 | PN ---
S CIWA - CIWA Score Nausea/Vomitin-No Nausea/No Vomiting Muscle Tremors: 2 Anxiety: 2 Agitation: 2 Paroxysmal Sweats: No Perspiration Orientation: 0-Oriented Tacttile Disturbances: 0-None Auditory Disturbances: 0-None Visual Disturbances: 0-None Headache: 0-None Present CIWA-Ar Total Score: 6 B[facility] Progress Note (SOAP) Subjective: 54 years old male admitted on 08/16/19 for alcohol withdrawal sx management treating with librium detox regiments hard of hearing both ears signed behavior contract upon admission that self control is necessary at all time while in detox and rehab patient is anxious about the discharge that he wants to maintain sober possible anxiety related loud and aggression emotional assurance given continue observe alcohol withdrawal related behavior issues Objective: 08/20/19 12:47 Vital Signs Temperature 98.1 F 08/20/19 09:02 Pulse Rate 71 08/20/19 09:02 Respiratory Rate 18 08/20/19 09:02 Blood Pressure 108/64 08/20/19 09:02 O2 Sat by Pulse Oximetry (%) Laboratory Last Values WBC 4.0 K/mm3 (4.0-10.0) 08/18/19 07:45 RBC 5.06 M/mm3 (4.00-5.60) 08/18/19 07:45 Hgb 11.8 GM/dL (11.7-16.9) 08/18/19 07:45 Hct 36.9 % (35.4-49) 08/18/19 07:45 MCV 73.0 fl (80-96) L 08/18/19 07:45 MCH 23.3 pg (25.7-33.7) L 08/18/19 07:45 MCHC 31.9 g/dl (32.0-35.9) L 08/18/19 07:45 RDW 15.8 % (11.9-15.9) D 08/18/19 07:45 Plt Count 214 K/MM3 (134-434) D 08/18/19 07:45 MPV 9.2 fl (7.5-11.1) 08/18/19 07:45 Sodium 140 mmol/L (136-145) 08/18/19 07:45 Potassium 3.7 mmol/L (3.5-5.1) 08/18/19 07:45 Chloride 106 mmol/L (98-107) 08/18/19 07:45 Carbon Dioxide 28 mmol/L (21-32) 08/18/19 07:45 Anion Gap 6 MMOL/L (8-16) L 08/18/19 07:45 BUN 11.1 mg/dL (7-18) 08/18/19 07:45 Creatinine 1.0 mg/dL (0.55-1.3) 08/18/19 07:45 Est GFR (CKD-EPI)AfAm 98.46 08/18/19 07:45 Est GFR (CKD-EPI)NonAf 84.95 08/18/19 07:45 Random Glucose 107 mg/dL (74-106) H 08/18/19 07:45 Calcium 7.9 mg/dL (8.5-10.1) L 08/18/19 07:45 Total Bilirubin 0.3 mg/dL (0.2-1) 08/18/19 07:45 AST 32 U/L (15-37) 08/18/19 07:45 ALT 27 U/L (13-61) 08/18/19 07:45 Alkaline Phosphatase 57 U/L (45-117) 08/18/19 07:45 Total Protein 6.2 g/dl (6.4-8.2) L 08/18/19 07:45 Albumin 3.0 g/dl (3.4-5.0) L 08/18/19 07:45 RPR Titer Reactive 1:2 (NONREACTIVE) H D 08/18/19 07:45 T.pallidum Ab (MHA) Previously reactive (NONREACTIVE) 08/18/19 07:45 lab noted 08/20/19 12:48 low Ca++ begin Ca++ supplement oscal Assessment: 08/20/19 12:48 alcohol withdrawal Plan: librium regiment and ancillary supportive pharmacotherapy
[2019-08-20] MEDS ORDERED: CALCIUM 250MG/VIT-D 125 UNITS 1 COMBO TABLET PO SCH (13:00)
[2019-08-20 13:22] VITALS: TEMP 98.4
[2019-08-20 13:30] VITALS: BP 91/56; PULSE 62
--- NOTE | 2019-08-20 16:07 | DS ---
[facility] Detox Discharge Summary Admission Date: 08/17/19 Discharge Date: 08/20/19 - History Present History: Alcohol Dependence Additional Comments: 54 years old male admitted on 08/17/19 for alcohol withdrawal sx management treated with librium detox regiment patient is doing well with librium regiment and tolerated well alert oriented x 3 cardiac s1s2 regular rate rhythm respiratory clear lungs bilaterally on auscultation extremities full range of motion Pertinent Past History: patient prefers to leave two days earlier than estimated discharge date due to refuse librium that librium dosage has beed modified estimated discharge date is tomorrow patient states that his sister will pick him up today case discussed with the nurse routine discharge is appropriated - Physical Exam Results Vital Signs: Vital Signs Temperature 98.4 F 08/20/19 13:01 Pulse Rate 62 08/20/19 13:29 Respiratory Rate 18 08/20/19 13:29 Blood Pressure 91/56 L 08/20/19 13:29 O2 Sat by Pulse Oximetry (%) Pertinent Admission Physical Exam Findings: alcohol withdrawal Laboratory Last Values WBC 4.0 K/mm3 (4.0-10.0) 08/18/19 07:45 RBC 5.06 M/mm3 (4.00-5.60) 08/18/19 07:45 Hgb 11.8 GM/dL (11.7-16.9) 08/18/19 07:45 Hct 36.9 % (35.4-49) 08/18/19 07:45 MCV 73.0 fl (80-96) L 08/18/19 07:45 MCH 23.3 pg (25.7-33.7) L 08/18/19 07:45 MCHC 31.9 g/dl (32.0-35.9) L 08/18/19 07:45 RDW 15.8 % (11.9-15.9) D 08/18/19 07:45 Plt Count 214 K/MM3 (134-434) D 08/18/19 07:45 MPV 9.2 fl (7.5-11.1) 08/18/19 07:45 Sodium 140 mmol/L (136-145) 08/18/19 07:45 Potassium 3.7 mmol/L (3.5-5.1) 08/18/19 07:45 Chloride 106 mmol/L (98-107) 08/18/19 07:45 Carbon Dioxide 28 mmol/L (21-32) 08/18/19 07:45 Anion Gap 6 MMOL/L (8-16) L 08/18/19 07:45 BUN 11.1 mg/dL (7-18) 08/18/19 07:45 Creatinine 1.0 mg/dL (0.55-1.3) 08/18/19 07:45 Est GFR (CKD-EPI)AfAm 98.46 08/18/19 07:45 Est GFR (CKD-EPI)NonAf 84.95 08/18/19 07:45 Random Glucose 107 mg/dL (74-106) H 08/18/19 07:45 Calcium 7.9 mg/dL (8.5-10.1) L 08/18/19 07:45 Total Bilirubin 0.3 mg/dL (0.2-1) 08/18/19 07:45 AST 32 U/L (15-37) 08/18/19 07:45 ALT 27 U/L (13-61) 08/18/19 07:45 Alkaline Phosphatase 57 U/L (45-117) 08/18/19 07:45 Total Protein 6.2 g/dl (6.4-8.2) L 08/18/19 07:45 Albumin 3.0 g/dl (3.4-5.0) L 08/18/19 07:45 RPR Titer Reactive 1:2 (NONREACTIVE) H D 08/18/19 07:45 T.pallidum Ab (MHA) Previously reactive (NONREACTIVE) 08/18/19 07:45 lab noted - Treatment Hospital Course: Detox Protocol Followed, Detoxed Safely, Responded well, Discharged Condition Good, Rehab Referral Accepted Patient has Accepted a Rehab Referral to: [facility] - Medication Discharge Medications: Ambulatory Orders Aspirin [Ecotrin] 81 mg PO DAILY 08/17/19 Divalproex [Depakote -] 1,000 mg PO DAILY 08/17/19 Quetiapine Fumarate [Seroquel -] 50 mg PO HS 08/17/19 traZODone HCL [Trazodone HCl] 100 mg PO HS 08/17/19 - Diagnosis (1) Alcohol dependence with uncomplicated withdrawal Current Visit: Yes Status: Acute (2) Acid reflux Current Visit: Yes Status: Chronic Qualifiers: Esophagitis presence: without esophagitis Qualified Code(s): K21.9 - Gastro -esophageal reflux disease without esophagitis (3) Anemia Current Visit: Yes Status: Chronic Qualifiers: Anemia type: iron deficiency Iron deficiency anemia type: unspecified iron deficiency Qualified Code(s): D50.9 - Iron deficiency anemia, unspecified (4) COPD (chronic obstructive pulmonary disease) Current Visit: Yes Status: Chronic Qualifiers: Chronic bronchitis type: unspecified (5) Nicotine dependence Current Visit: Yes Status: Acute Qualifiers: Nicotine product type: cigarettes Substance use status: in withdrawal Qualified Code(s): F17.213 - Nicotine dependence, cigarettes, with withdrawal (6) Syphilis contact, treated Current Visit: Yes Status: Chronic (7) Weight loss Current Visit: Yes Status: Acute (8) Asthma Current Visit: Yes Status: Chronic Qualifiers: Asthma severity: mild Asthma persistence: intermittent Asthma complication type: with status asthmaticus Qualified Code(s): J45.22 - Mild intermittent asthma with status asthmaticus (9) Substance induced mood disorder Current Visit: Yes Status: Suspected - AMA Did Patient Leave Against Medical Advice: No CIWA Score - CIWA Score Nausea/Vomitin-No Nausea/No Vomiting Muscle Tremors: 2 Anxiety: 1-Mildly Anxious Agitation: 1-Slight > Activity Paroxysmal Sweats: No Perspiration Orientation: 0-Oriented Tacttile Disturbances: 0-None Auditory Disturbances: 0-None Visual Disturbances: 0-None Headache: 0-None Present CIWA-Ar Total Score: 4
[2019-08-20] MEDS ORDERED: chlordiazePOXIDE 5 MG CAPSULE PO SCH (18:00)
[2019-08-21] MEDS ORDERED: chlordiazePOXIDE 5 MG CAPSULE PO ONE (05:00)
[2019-08-21] MEDS ORDERED: chlordiazePOXIDE HCL 10 MG CAPSULE PO SCH (05:00)
[2019-08-22] MEDS ORDERED: chlordiazePOXIDE HCL 10 MG CAPSULE PO ONE (05:00)
== END 2019-08-20 16:38 | disposition home or self-care (01) | DRG 774 ==
LOC: YASAS 16:17 → Y3N 19:47
PROVIDERS: ADMIT Allergy & Immunology; ATTEND Allergy & Immunology
PROC: HZ2ZZZZ Detoxification Services for Substance Abuse Treatment (ICD-10-PCS; principal; 2019-08-17)
DX: F10.230 Alcohol dependence with withdrawal, uncomplicated (principal); F14.20 Cocaine dependence, uncomplicated; F17.210 Nicotine dependence, cigarettes, uncomplicated; F19.24 Other psychoactive substance dependence with psychoactive substance-induced mood disorder; F32.9 Major depressive disorder, single episode, unspecified; J45.22 Mild intermittent asthma with status asthmaticus; K21.9 Gastro-esophageal reflux disease without esophagitis; J44.9 Chronic obstructive pulmonary disease, unspecified; R63.4 Abnormal weight loss; Z87.438 Personal history of other diseases of male genital organs; Z88.0 Allergy status to penicillin
CPT/HCPCS: 36415; 80053; 85027; 86593; 86780; 93005; 93010

== ENCOUNTER 2019-09-30 18:19 | Inpatient (IN) | payer OTHER ==
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
[2019-09-30] MEDS ORDERED: BISMUTH SUBSALICYLATE 524 MG/30 ML UD PO PRN (21:34)
[2019-09-30] MEDS ORDERED: P-EPHED 60MG/TRIPROLIDI 2.5MG TABLET PO PRN (21:34)
[2019-09-30] MEDS ORDERED: MENTHOL/PHENOL 1 EACH UD MM PRN (21:34)
[2019-09-30] MEDS ORDERED: MAGNESIUM CITRATE 300 ML BOTTLE PO PRN (21:34)
[2019-09-30] MEDS ORDERED: MAG HYDROX/AL HYDROX/SIMETH 30 ML UNIT-DOSE CUP PO PRN (21:34)
[2019-09-30] MEDS ORDERED: IBUPROFEN 400 MG TABLET (FP) PO PRN (21:34)
[2019-09-30] MEDS ORDERED: METHOCARBAMOL 500 MG TABLET PO PRN (21:34)
[2019-09-30] MEDS ORDERED: DICYCLOMINE HCL 10 MG CAPSULE PO PRN (21:34)
[2019-09-30] MEDS ORDERED: guaiFENesin 200 MG/10 ML 10 ML UNIT-DOSE CUPS PO PRN (21:34)
[2019-09-30] MEDS ORDERED: NICOTINE POLACRILEX 2 MG GUM BUC PRN (21:34)
[2019-09-30] MEDS ORDERED: ACETAMINOPHEN 325 MG TABLET (FP) PO PRN ×2 (21:34)
[2019-09-30] MEDS ORDERED: chlordiazePOXIDE HCL 25 MG CAPSULE PO PRN (21:34)
[2019-09-30] MEDS ORDERED: MAGNESIUM HYDROX 2400MG/30ML ORAL SUSPENSION 30 ML CUP PO PRN (21:34)
[2019-09-30] MEDS ORDERED: MELATONIN 5 MG TABLETS PO SCH (22:00)
[2019-09-30 22:02] VITALS: BMI 22.1
[2019-09-30] MEDS ORDERED: THIAMINE HCL 100 MG TABLET (FP) PO SCH (22:45)
[2019-09-30] MEDS ORDERED: ONDANSETRON *ODT* 4 MG TABLET SL ONE (22:45)
[2019-09-30] MEDS: chlordiazePOXIDE HCL 25 MG CAPSULE PO SCH (23:05)
[2019-10-01] MEDS: chlordiazePOXIDE HCL 25 MG CAPSULE PO SCH ×3 (06:38→18:42)
[2019-10-01] MEDS ORDERED: PRENATAL VITAMINS W/ FOLIC ACID TABLET (FP) PO SCH (10:00)
[2019-10-01] MEDS ORDERED: NICOTINE 14 MG/24 HOURS TOPICAL PATCH TD SCH (10:00)
[2019-10-01 10:24] LABS: HEMATOCRIT 36.5 % (35.4-49); HEMOGLOBIN 11.6 GM/dL (11.7-16.9); MCH 23.3 pg (25.7-33.7); MCHC 31.9 g/dl (32.0-35.9); MEAN CELL VOLUME 73.1 fl (80-96); MEAN PLT VOLUME 9.9 fl (7.5-11.1); PLATELET COUNT 156 K/MM3 (134-434); RBC 4.99 M/mm3 (4.00-5.60); RDW 15.6 % (11.9-15.9); WHITE BLOOD COUNT 4.2 K/mm3 (4.0-10.0)
[2019-10-01 10:45] LABS: BILIRUBIN,TOTAL 0.6 mg/dL (0.2-1); BLOOD UREA NITROGEN 9.6 mg/dL (7-18); CALCIUM 7.8 mg/dL (8.5-10.1); CREATININE 0.9 mg/dL (0.55-1.3); POTASSIUM 3.6 mmol/L (3.5-5.1); TOT PROT 6.2 g/dl (6.4-8.2)
[2019-10-01 11:16] LABS: RPR REACTIVE 1:1 (NONREACTIVE)
[2019-10-01 11:25] LABS: TREPONEMA ANTIBODY PREVIOUSLY REACTIVE (NONREACTIVE)
--- NOTE | 2019-10-01 11:30 | PN ---
S CIWA - CIWA Score Nausea/Vomitin-No Nausea/No Vomiting Muscle Tremors: 3 Anxiety: 3 Agitation: 3 Paroxysmal Sweats: 3 Orientation: 0-Oriented Tacttile Disturbances: 0-None Auditory Disturbances: 0-None Visual Disturbances: 0-None Headache: 0-None Present CIWA-Ar Total Score: 12 BHS Progress Note (SOAP) Subjective: sweats shakes body aches irritable interrupted sleep Objective: 10/01/19 11:26 Vital Signs Temperature 97.6 F 10/01/19 05:35 Pulse Rate 56 L 10/01/19 05:35 Respiratory Rate 18 10/01/19 05:35 Blood Pressure 98/57 L 10/01/19 05:35 O2 Sat by Pulse Oximetry (%) Laboratory Tests 10/01/19 10/01/19 10/01/19 06:00 06:00 06:00 WBC 4.2 RBC 4.99 Hgb 11.6 L Hct 36.5 MCV 73.1 L MCH 23.3 L MCHC 31.9 L RDW 15.6 Plt Count 156 D MPV 9.9 Sodium 142 Potassium 3.6 Chloride 109 H Carbon Dioxide 26 Anion Gap 7 L BUN 9.6 Creatinine 0.9 Est GFR (CKD-EPI)AfAm 111.83 Est GFR (CKD-EPI)NonAf 96.49 Random Glucose 119 H Calcium 7.8 L Total Bilirubin 0.6 AST 29 ALT 28 Alkaline Phosphatase 57 Total Protein 6.2 L Albumin 3.0 L RPR Titer Reactive 1:1 H D T.pallidum Ab (MHA) Previously reactive labs noted aaox3 ambulating no acute distress Assessment: 10/01/19 11:30 withdrawals Plan: continue detox increase fluids
--- NOTE | 2019-10-01 11:31 | CONSULT ---
[facility] Psychiatric Consult - Data Date of interview: 10/01/19 Psychiatric History: Patient was approached at bedtime. 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
[2019-10-01 17:44] VITALS: BP 96/65; PULSE 60; TEMP 98.1
--- NOTE | 2019-10-01 17:47 | DS ---
[facility] Detox Discharge Summary Admission Date: 09/30/19 Discharge Date: 10/01/19 - History Present History: Alcohol Dependence, Cocaine Dependence Pertinent Past History: Pt states his daughter is in the ER in a [facility]. Pt needs to leave now to visit his daughter. States he will be fine and had been without using for 3 months. Pt knows to come to ER if needed - Physical Exam Results Vital Signs: Vital Signs Temperature 98.1 F 10/01/19 17:07 Pulse Rate 60 10/01/19 17:07 Respiratory Rate 18 10/01/19 17:07 Blood Pressure 96/65 10/01/19 17:07 O2 Sat by Pulse Oximetry (%) - Medication Discharge Medications: Ambulatory Orders Aspirin [Ecotrin] 81 mg PO DAILY 08/17/19 Divalproex [Depakote -] 1,000 mg PO DAILY 08/17/19 Quetiapine Fumarate [Seroquel -] 50 mg PO HS 08/17/19 traZODone HCL [Trazodone HCl] 100 mg PO HS 08/17/19 - AMA Did Patient Leave Against Medical Advice: Yes
[2019-10-02] MEDS ORDERED: chlordiazePOXIDE HCL 25 MG CAPSULE PO SCH (05:00)
[2019-10-03] MEDS ORDERED: chlordiazePOXIDE HCL 10 MG CAPSULE PO PRN
[2019-10-03] MEDS ORDERED: chlordiazePOXIDE HCL 10 MG CAPSULE PO SCH (05:00)
[2019-10-04] MEDS ORDERED: chlordiazePOXIDE HCL 10 MG CAPSULE PO SCH (05:00)
[2019-10-05] MEDS ORDERED: chlordiazePOXIDE HCL 10 MG CAPSULE PO ONE (05:00)
== END 2019-10-01 18:42 | disposition left against medical advice (07) | DRG 770 ==
LOC: YASAS 18:19 → Y6N 22:41
PROVIDERS: ADMIT Allergy & Immunology; ATTEND Allergy & Immunology
PROC: HZ2ZZZZ Detoxification Services for Substance Abuse Treatment (ICD-10-PCS; principal; 2019-09-30)
DX: F10.230 Alcohol dependence with withdrawal, uncomplicated (principal); F14.20 Cocaine dependence, uncomplicated; F17.210 Nicotine dependence, cigarettes, uncomplicated; F19.24 Other psychoactive substance dependence with psychoactive substance-induced mood disorder; F31.9 Bipolar disorder, unspecified; D50.9 Iron deficiency anemia, unspecified; J45.22 Mild intermittent asthma with status asthmaticus; J44.9 Chronic obstructive pulmonary disease, unspecified; K21.9 Gastro-esophageal reflux disease without esophagitis; Z86.19 Personal history of other infectious and parasitic diseases; Z87.828 Personal history of other (healed) physical injury and trauma; Z88.0 Allergy status to penicillin; Z91.19 Patient's noncompliance with other medical treatment and regimen
CPT/HCPCS: 36415; 80053; 85027; 86593; 86780

== ENCOUNTER 2020-03-04 14:24 | Inpatient (IN) | payer OTHER ==
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
[2020-03-04] MEDS ORDERED: BISMUTH SUBSALICYLATE 524 MG/30 ML UD PO PRN (17:42)
[2020-03-04] MEDS ORDERED: MENTHOL/PHENOL 1 EACH UD MM PRN (17:42)
[2020-03-04] MEDS ORDERED: MAGNESIUM CITRATE 300 ML BOTTLE PO PRN (17:42)
[2020-03-04] MEDS ORDERED: ACETAMINOPHEN 325 MG TABLET (FP) PO PRN ×2 (17:42)
[2020-03-04] MEDS ORDERED: METHOCARBAMOL 500 MG TABLET PO PRN (17:42)
[2020-03-04] MEDS ORDERED: ONDANSETRON *ODT* 4 MG TABLET SL ONE (17:42)
[2020-03-04] MEDS ORDERED: hydrOXYzine PAMOATE 25 MG CAPSULE (FP) PO PRN (17:42)
[2020-03-04] MEDS ORDERED: NICOTINE POLACRILEX 2 MG GUM BUC PRN (17:42)
[2020-03-04] MEDS ORDERED: MAG HYDROX/AL HYDROX/SIMETH 30 ML UNIT-DOSE CUP PO PRN (17:42)
[2020-03-04] MEDS ORDERED: IBUPROFEN 400 MG TABLET (FP) PO PRN (17:42)
[2020-03-04] MEDS ORDERED: MAGNESIUM HYDROX 2400MG/30ML ORAL SUSPENSION 30 ML CUP PO PRN (17:42)
[2020-03-04 18:46] VITALS: BMI 24.0
[2020-03-04] MEDS: chlordiazePOXIDE HCL 25 MG CAPSULE PO PRN (19:40)
[2020-03-04] MEDS: chlordiazePOXIDE HCL 25 MG CAPSULE PO SCH (22:19)
[2020-03-04] MEDS: THIAMINE HCL 100 MG TABLET (FP) PO SCH (22:19)
[2020-03-04] MEDS: MELATONIN 5 MG TABLETS PO SCH (22:20)
[2020-03-05] MEDS: chlordiazePOXIDE HCL 25 MG CAPSULE PO SCH ×4 (06:28→22:13)
[2020-03-05] MEDS: PRENATAL VITAMINS W/ FOLIC ACID TABLET (FP) PO SCH (11:26)
[2020-03-05] MEDS: NICOTINE 14 MG/24 HOURS TOPICAL PATCH TD SCH (11:26)
[2020-03-05 12:03] LABS: HEMATOCRIT 36.9 % (35.4-49); HEMOGLOBIN 11.8 GM/dL (11.7-16.9); MCH 23.4 pg (25.7-33.7); MCHC 32.1 g/dl (32.0-35.9); MEAN CELL VOLUME 72.9 fl (80-96); MEAN PLT VOLUME 10.1 fl (7.5-11.1); PLATELET COUNT 134 K/MM3 (134-434); RBC 5.06 M/mm3 (4.00-5.60); RDW 15.3 % (11.9-15.9); WHITE BLOOD COUNT 3.5 K/mm3 (4.0-10.0)
[2020-03-05 12:07] LABS: ALBUMIN 3.1 g/dl (3.4-5.0); BILIRUBIN,TOTAL 0.4 mg/dL (0.2-1); BLOOD UREA NITROGEN 10.4 mg/dL (7-18); CALCIUM 8.4 mg/dL (8.5-10.1); CREATININE 0.9 mg/dL (0.55-1.3); TOT PROT 6.7 g/dl (6.4-8.2)
--- NOTE | 2020-03-05 14:28 | PN ---
[facility] CIWA - CIWA Score Nausea/Vomitin-No Nausea/No Vomiting Muscle Tremors: 3 Anxiety: 3 Agitation: 2 Paroxysmal Sweats: No Perspiration Orientation: 0-Oriented Tacttile Disturbances: 0-None Auditory Disturbances: 0-None Visual Disturbances: 2-Mild Sensitivity Headache: 0-None Present CIWA-Ar Total Score: 10 S Progress Note (SOAP) Subjective: Anxious, Tremors, Fatigue. Objective: Patient A & O X 3, Observed Ambulating on Detox Unit Unassisted. In No Acute Distress. 03/05/20 14:30 Vital Signs Temperature 98.2 F 03/05/20 08:38 Pulse Rate 69 03/05/20 08:38 Respiratory Rate 15 03/05/20 08:38 Blood Pressure 101/68 03/05/20 08:38 O2 Sat by Pulse Oximetry (%) 98 03/05/20 08:38 Laboratory Tests 03/05/20 03/05/20 03/05/20 07:50 07:50 07:50 WBC 3.5 L RBC 5.06 Hgb 11.8 Hct 36.9 MCV 72.9 L MCH 23.4 L MCHC 32.1 RDW 15.3 Plt Count 134 D MPV 10.1 D Sodium 142 Potassium 4.0 Chloride 110 H Carbon Dioxide 26 Anion Gap 6 L BUN 10.4 Creatinine 0.9 Est GFR (CKD-EPI)AfAm 111.83 Est GFR (CKD-EPI)NonAf 96.49 Random Glucose 93 Calcium 8.4 L Total Bilirubin 0.4 AST 45 H ALT 49 Alkaline Phosphatase 44 L Total Protein 6.7 Albumin 3.1 L Syphilis Serology Reactive A* Lab Results noted. Preliminary Syphilis Result noted to be 'Reactive' Confirmatory Result pending at this time. 03/05/20 14:31 Assessment: 03/05/20 14:31 WITHDRAWAL SYMPTOMS. LEUKOPENIA. Plan: Continue Detox.
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
[2020-03-05] MEDS: MELATONIN 5 MG TABLETS PO SCH (22:14)
[2020-03-05] MEDS: QUEtiapine FUMARATE 50 MG TABLET PO SCH (22:14)
[2020-03-05] MEDS: DIVALPROEX SODIUM 250 MG TABLET E.C. PO SCH (22:14)
[2020-03-05] MEDS: THIAMINE HCL 100 MG TABLET (FP) PO SCH (22:14)
[2020-03-06] MEDS: chlordiazePOXIDE HCL 25 MG CAPSULE PO SCH ×4 (06:45→22:36)
[2020-03-06] MEDS: PRENATAL VITAMINS W/ FOLIC ACID TABLET (FP) PO SCH (12:04)
[2020-03-06] MEDS: NICOTINE 14 MG/24 HOURS TOPICAL PATCH TD SCH (12:04)
[2020-03-06] MEDS: DIVALPROEX SODIUM 250 MG TABLET E.C. PO SCH ×2 (12:08→22:36)
[2020-03-06] MEDS: chlordiazePOXIDE HCL 25 MG CAPSULE PO PRN (12:13)
--- NOTE | 2020-03-06 17:04 | PN ---
S CIWA - CIWA Score Nausea/Vomitin-No Nausea/No Vomiting Muscle Tremors: 2 Anxiety: 2 Agitation: 2 Paroxysmal Sweats: 2 Orientation: 0-Oriented Tacttile Disturbances: 0-None Auditory Disturbances: 0-None Visual Disturbances: 0-None Headache: 0-None Present CIWA-Ar Total Score: 8 BHS Progress Note (SOAP) Subjective: Sweat, a little bit of nightmare; pt requesting to see psychiatrist re: home meds Objective: 03/06/20 17:03 Last Vital Signs Temp Pulse Resp BP Pulse Ox 98.5 F 69 19 113/59 L 96 03/06/20 12:46 03/06/20 12:46 03/06/20 12:46 03/06/20 12:46 03/06/20 12:46 Laboratory Tests 03/04/20 03/05/20 03/05/20 18:36 07:50 07:50 WBC 3.5 L RBC 5.06 Hgb 11.8 Hct 36.9 MCV 72.9 L MCH 23.4 L MCHC 32.1 RDW 15.3 Plt Count 134 D MPV 10.1 D Sodium Potassium Chloride Carbon Dioxide Anion Gap BUN Creatinine Est GFR (CKD-EPI)AfAm Est GFR (CKD-EPI)NonAf Random Glucose Calcium Total Bilirubin AST ALT Alkaline Phosphatase Total Protein Albumin Valproic Acid Syphilis Serology Reactive A* RPR Titer COVID-19 (MONIQUE) Not detected 03/05/20 03/05/20 03/06/20 07:50 07:50 06:10 WBC RBC Hgb Hct MCV MCH MCHC RDW Plt Count MPV Sodium 142 Potassium 4.0 Chloride 110 H Carbon Dioxide 26 Anion Gap 6 L BUN 10.4 Creatinine 0.9 Est GFR (CKD-EPI)AfAm 111.83 Est GFR (CKD-EPI)NonAf 96.49 Random Glucose 93 Calcium 8.4 L Total Bilirubin 0.4 AST 45 H ALT 49 Alkaline Phosphatase 44 L Total Protein 6.7 Albumin 3.1 L Valproic Acid < 3.0 L Syphilis Serology RPR Titer Reactive 1:1 H COVID-19 (MONIQUE) Labs reviewed Assessment: 03/06/20 17:03 Withdrawal sx Plan: Continue detox Encourage PO water intake
--- NOTE | 2020-03-06 18:58 | EKG ---
Test Reason : Blood Pressure : / mmHG Vent. Rate : 051 BPM Atrial Rate : 051 BPM P-R Int : 134 ms QRS Dur : 102 ms QT Int : 454 ms P-R-T Axes : 070 019 041 degrees QTc Int : 418 ms [address]US BR[address]YCARDIA NONSPECIFIC ST ABNORMALITY BORDERLINE ECG Confirmed by MD SUSAN, FANTASMA ([id number]) on 03/06/2020 6:57:47 PM Referred By: Confirmed By:FANTASMA DAVIS MD
[2020-03-06 21:50] VITALS: BP 125/65; PULSE 62; TEMP 97.2
[2020-03-06] MEDS: THIAMINE HCL 100 MG TABLET (FP) PO SCH (22:36)
[2020-03-06] MEDS: MELATONIN 5 MG TABLETS PO SCH (22:36)
[2020-03-06] MEDS: QUEtiapine FUMARATE 50 MG TABLET PO SCH (22:36)
[2020-03-07] MEDS ORDERED: chlordiazePOXIDE HCL 10 MG CAPSULE PO PRN
[2020-03-07] MEDS: chlordiazePOXIDE HCL 10 MG CAPSULE PO SCH ×2 (07:00→11:05)
[2020-03-07] MEDS: NICOTINE 14 MG/24 HOURS TOPICAL PATCH TD SCH (11:05)
[2020-03-07] MEDS: DIVALPROEX SODIUM 250 MG TABLET E.C. PO SCH (11:05)
[2020-03-07] MEDS: PRENATAL VITAMINS W/ FOLIC ACID TABLET (FP) PO SCH (11:05)
--- NOTE | 2020-03-07 11:21 | PN ---
[facility] CIWA - CIWA Score Nausea/Vomitin-No Nausea/No Vomiting Muscle Tremors: 2 Anxiety: 1-Mildly Anxious Agitation: 2 Paroxysmal Sweats: No Perspiration Orientation: 0-Oriented Tacttile Disturbances: 0-None Auditory Disturbances: 0-None Visual Disturbances: 0-None Headache: 0-None Present CIWA-Ar Total Score: 5 BHS Progress Note (SOAP) Subjective: tired irritable agitation leave me alone Objective: 03/07/20 11:19 Vital Signs Temperature 97.5 F 03/06/20 10:00 Pulse Rate 54 03/06/20 10:00 Respiratory Rate 16 03/06/20 10:00 Blood Pressure 90/50 03/06/20 10:00 O2 Sat by Pulse Oximetry (%) 95 03/06/20 10:00 aaox3 lying in bed no acute distress Assessment: 03/07/20 11:21 mild withdrawals Plan: continue detox increase fluids
--- NOTE | 2020-03-07 13:24 | PN ---
S CIWA - CIWA Score Nausea/Vomitin-No Nausea/No Vomiting Muscle Tremors: None Anxiety: 1-Mildly Anxious Agitation: 1-Slight > Activity Paroxysmal Sweats: No Perspiration Orientation: 0-Oriented Tacttile Disturbances: 0-None Auditory Disturbances: 0-None Visual Disturbances: 0-None Headache: 0-None Present CIWA-Ar Total Score: 2 BHS Progress Note (SOAP) Subjective: I feel better and want to go home Objective: 03/07/20 13:24 Vital Signs Temperature 97.2 F L 03/06/20 20:42 Pulse Rate 62 03/06/20 20:42 Respiratory Rate 18 03/06/20 20:42 Blood Pressure 125/65 03/06/20 20:42 O2 Sat by Pulse Oximetry (%) 95 03/06/20 20:42 aaox3 ambulating no acute distress Assessment: 03/07/20 13:24 no s/s of withdrawals Plan: d/c today.
--- NOTE | 2020-03-07 13:27 | DS ---
[facility] Detox Discharge Summary Admission Date: 03/04/20 Discharge Date: 03/07/20 - History Present History: Alcohol Dependence, Cocaine Dependence, Sedative Dependence - Physical Exam Results Vital Signs: Vital Signs Temperature 97.2 F L 03/06/20 20:42 Pulse Rate 62 03/06/20 20:42 Respiratory Rate 18 03/06/20 20:42 Blood Pressure 125/65 03/06/20 20:42 O2 Sat by Pulse Oximetry (%) 95 03/06/20 20:42 Pertinent Admission Physical Exam Findings: Vital Signs Temperature 97.2 F L 03/06/20 20:42 Pulse Rate 62 03/06/20 20:42 Respiratory Rate 18 03/06/20 20:42 Blood Pressure 125/65 03/06/20 20:42 O2 Sat by Pulse Oximetry (%) 95 03/06/20 20:42 Laboratory Tests 03/04/20 03/05/20 03/05/20 18:36 07:50 07:50 WBC 3.5 L RBC 5.06 Hgb 11.8 Hct 36.9 MCV 72.9 L MCH 23.4 L MCHC 32.1 RDW 15.3 Plt Count 134 D MPV 10.1 D Sodium Potassium Chloride Carbon Dioxide Anion Gap BUN Creatinine Est GFR (CKD-EPI)AfAm Est GFR (CKD-EPI)NonAf Random Glucose Calcium Total Bilirubin AST ALT Alkaline Phosphatase Total Protein Albumin Valproic Acid Syphilis Serology Reactive A* RPR Titer COVID-19 (MONIQUE) Not detected 03/05/20 03/05/20 03/06/20 07:50 07:50 06:10 WBC RBC Hgb Hct MCV MCH MCHC RDW Plt Count MPV Sodium 142 Potassium 4.0 Chloride 110 H Carbon Dioxide 26 Anion Gap 6 L BUN 10.4 Creatinine 0.9 Est GFR (CKD-EPI)AfAm 111.83 Est GFR (CKD-EPI)NonAf 96.49 Random Glucose 93 Calcium 8.4 L Total Bilirubin 0.4 AST 45 H ALT 49 Alkaline Phosphatase 44 L Total Protein 6.7 Albumin 3.1 L Valproic Acid < 3.0 L Syphilis Serology RPR Titer Reactive 1:1 H COVID-19 (MONIQUE) aaox3 ambulating no acute distress - Treatment Hospital Course: Detox Protocol Followed, Detoxed Safely, Responded well, Discharged Condition Good, Rehab Referral Accepted - Medication Discharge Medications: Ambulatory Orders Aspirin [Ecotrin] 81 mg PO DAILY 08/17/19 Divalproex [Depakote -] 1,000 mg PO DAILY 08/17/19 Quetiapine Fumarate [Seroquel -] 50 mg PO HS 08/17/19 traZODone HCL [Trazodone HCl] 100 mg PO HS 08/17/19 Quetiapine Fumarate [Seroquel -] 100 mg PO HS #30 tablet 11/17/19 - Diagnosis (1) Alcohol dependence with uncomplicated withdrawal Current Visit: Yes Status: Chronic (2) Leukopenia Current Visit: Yes Status: Acute Qualifiers: Neutropenia type: unspecified (3) Anemia Current Visit: Yes Status: Chronic Qualifiers: Anemia type: iron deficiency Iron deficiency anemia type: unspecified iron deficiency Qualified Code(s): D50.9 - Iron deficiency anemia, unspecified (4) Bipolar disorder Current Visit: Yes Status: Chronic (5) COPD (chronic obstructive pulmonary disease) Current Visit: Yes Status: Chronic Qualifiers: Chronic bronchitis type: unspecified (6) Cocaine dependence, uncomplicated Current Visit: Yes Status: Chronic (7) Depression Current Visit: Yes Status: Chronic Qualifiers: Depression Type: unspecified Qualified Code(s): F32.9 - Major depressive disorder, single episode, unspecified (8) GERD (gastroesophageal reflux disease) Current Visit: Yes Status: Chronic Qualifiers: Esophagitis presence: without esophagitis Qualified Code(s): K21.9 - Gastro-esophageal reflux disease without esophagitis (9) Insomnia Current Visit: Yes Status: Chronic Qualifiers: Insomnia type: drug-induced Qualified Code(s): F19.982 - Other psychoactive substance use, unspecified with psychoactive substance-induced sleep disorder (10) Non-compliance Current Visit: Yes Status: Chronic (11) Substance induced mood disorder Current Visit: Yes Status: Chronic (12) Sedative, hypnotic or anxiolytic abuse Current Visit: No Status: Acute (13) Substance-induced sleep disorder Current Visit: No Status: Acute (14) Anxiety disorder Current Visit: No Status: Chronic Qualifiers: Anxiety disorder type: unspecified anxiety disorder Qualified Code(s): F41.9 - Anxiety disorder, unspecified (15) Asthma Current Visit: No Status: Chronic Qualifiers: Asthma severity: mild Asthma persistence: intermittent Asthma complication type: with status asthmaticus Qualified Code(s): J45.22 - Mild intermittent asthma with status asthmaticus (16) Bipolar II disorder Current Visit: No Status: Chronic (17) Syphilis contact, treated Current Visit: No Status: Resolved - AMA Did Patient Leave Against Medical Advice: No
[2020-03-08] MEDS ORDERED: chlordiazePOXIDE HCL 10 MG CAPSULE PO SCH (05:00)
[2020-03-09] MEDS ORDERED: chlordiazePOXIDE HCL 10 MG CAPSULE PO ONE (05:00)
== END 2020-03-07 14:00 | disposition home or self-care (01) | DRG 774 ==
LOC: YASAS 14:24 → Y6N 18:21
PROVIDERS: ADMIT Allergy & Immunology; ATTEND Allergy & Immunology
PROC: HZ2ZZZZ Detoxification Services for Substance Abuse Treatment (ICD-10-PCS; principal; 2020-03-04)
DX: F10.230 Alcohol dependence with withdrawal, uncomplicated (principal); F14.20 Cocaine dependence, uncomplicated; F13.20 Sedative, hypnotic or anxiolytic dependence, uncomplicated; F17.210 Nicotine dependence, cigarettes, uncomplicated; F19.282 Other psychoactive substance dependence with psychoactive substance-induced sleep disorder; F19.280 Other psychoactive substance dependence with psychoactive substance-induced anxiety disorder; F19.24 Other psychoactive substance dependence with psychoactive substance-induced mood disorder; F31.9 Bipolar disorder, unspecified; J44.9 Chronic obstructive pulmonary disease, unspecified; K21.9 Gastro-esophageal reflux disease without esophagitis; J45.20 Mild intermittent asthma, uncomplicated; Z20.2 Contact with and (suspected) exposure to infections with a predominantly sexual mode of transmission; Z91.19 Patient's noncompliance with other medical treatment and regimen; Z88.0 Allergy status to penicillin; Z86.19 Personal history of other infectious and parasitic diseases
CPT/HCPCS: 36415; 80053; 80164; 85027; 86593; 86780; 93005; 93010; U0003

== ENCOUNTER 2020-08-17 15:28 | Inpatient (IN) | payer OTHER ==
[2020-08-17 17:24] VITALS: BMI 21.7
[2020-08-17] MEDS ORDERED: MENTHOL/PHENOL 1 EACH UD MM PRN (18:59)
[2020-08-17] MEDS ORDERED: METHOCARBAMOL 500 MG TABLET PO PRN (18:59)
[2020-08-17] MEDS ORDERED: ONDANSETRON *ODT* 4 MG TABLET SL PRN (18:59)
[2020-08-17] MEDS ORDERED: chlordiazePOXIDE HCL 25 MG CAPSULE PO PRN (18:59)
[2020-08-17] MEDS ORDERED: guaiFENesin 200 MG/10 ML 10 ML UNIT-DOSE CUPS PO PRN (18:59)
[2020-08-17] MEDS ORDERED: NICOTINE POLACRILEX 2 MG GUM BUC PRN (18:59)
[2020-08-17] MEDS ORDERED: P-EPHED 60MG/TRIPROLIDI 2.5MG TABLET PO PRN (18:59)
[2020-08-17] MEDS ORDERED: MAGNESIUM CITRATE 300 ML BOTTLE PO PRN (18:59)
[2020-08-17] MEDS ORDERED: MAG HYDROX/AL HYDROX/SIMETH 30 ML UNIT-DOSE CUP PO PRN (18:59)
[2020-08-17] MEDS ORDERED: MAGNESIUM HYDROX 2400MG/30ML ORAL SUSPENSION 30 ML CUP PO PRN (18:59)
[2020-08-17] MEDS ORDERED: DICYCLOMINE HCL 10 MG CAPSULE PO PRN (18:59)
[2020-08-17] MEDS ORDERED: hydrOXYzine PAMOATE 25 MG CAPSULE (FP) PO PRN (18:59)
[2020-08-17] MEDS ORDERED: IBUPROFEN 400 MG TABLET (FP) PO PRN (18:59)
[2020-08-17] MEDS ORDERED: BISMUTH SUBSALICYLATE 524 MG/30 ML UD PO PRN (18:59)
[2020-08-17] MEDS ORDERED: ACETAMINOPHEN 325 MG TABLET (FP) PO PRN ×2 (18:59)
[2020-08-17] MEDS: MELATONIN 5 MG TABLETS PO SCH (22:10)
[2020-08-17] MEDS: THIAMINE HCL 100 MG TABLET (FP) PO SCH (22:11)
[2020-08-17] MEDS: chlordiazePOXIDE HCL 25 MG CAPSULE PO SCH (22:12)
[2020-08-18] MEDS: chlordiazePOXIDE HCL 25 MG CAPSULE PO SCH ×4 (06:28→22:32)
[2020-08-18] MEDS: ASPIRIN COATED 81 MG TABLET.EC PO SCH (11:19)
[2020-08-18] MEDS: NICOTINE 14 MG/24 HOURS TOPICAL PATCH TD SCH (11:20)
[2020-08-18] MEDS: PRENATAL VITAMINS W/ FOLIC ACID TABLET (FP) PO SCH (11:20)
[2020-08-18 12:26] LABS: HEMOGLOBIN 10.7 GM/dL (11.7-16.9); MCH 22.9 pg (25.7-33.7); MCHC 31.4 g/dl (32.0-35.9); MEAN CELL VOLUME 72.9 fl (80-96); MEAN PLT VOLUME 9.9 fl (7.5-11.1); PLATELET COUNT 172 K/MM3 (134-434); RBC 4.67 M/mm3 (4.00-5.60); WHITE BLOOD COUNT 3.8 K/mm3 (4.0-10.0)
[2020-08-18 12:29] LABS: POTASSIUM 3.9 mmol/L (3.5-5.1)
[2020-08-18 12:33] LABS: BLOOD UREA NITROGEN 13.7 mg/dL (7-18)
[2020-08-18 12:36] LABS: CREATININE 0.8 mg/dL (0.55-1.3)
[2020-08-18 12:38] LABS: BILIRUBIN,TOTAL 0.3 mg/dL (0.2-1); TOT PROT 6.2 g/dl (6.4-8.2)
[2020-08-18] MEDS: DIVALPROEX SODIUM 500 MG TABLET E.C. PO SCH ×2 (14:51→22:31)
[2020-08-18 14:53] LABS: PH,URINE 6.5 (5.0-8.0); URINE APPEARANCE CLEAR; URINE BILIRUBIN NEGATIVE (NEGATIVE); URINE COLOR YELLOW; URINE GLUCOSE (UA) NEGATIVE (NEGATIVE); URINE KETONE NEGATIVE (NEGATIVE); URINE LEUK ESTERASE NEGATIVE (NEGATIVE); URINE NITRITE NEGATIVE (NEGATIVE); URINE PROTEIN NEGATIVE (NEGATIVE); URINE UROBILINOGEN 0.2 mg/dL (0.2-1.0)
[2020-08-18] MEDS: THIAMINE HCL 100 MG TABLET (FP) PO SCH (22:31)
[2020-08-18] MEDS: MELATONIN 5 MG TABLETS PO SCH (22:31)
[2020-08-18] MEDS: traZODone HCL 100 MG TABLET (FP) PO SCH (22:31)
[2020-08-19] MEDS: chlordiazePOXIDE HCL 25 MG CAPSULE PO SCH ×4 (06:42→22:26)
[2020-08-19] MEDS: NICOTINE 14 MG/24 HOURS TOPICAL PATCH TD SCH (10:42)
[2020-08-19] MEDS: DIVALPROEX SODIUM 500 MG TABLET E.C. PO SCH ×2 (10:42→22:26)
[2020-08-19] MEDS: ASPIRIN COATED 81 MG TABLET.EC PO SCH (10:42)
[2020-08-19] MEDS: PRENATAL VITAMINS W/ FOLIC ACID TABLET (FP) PO SCH (10:42)
[2020-08-19] MEDS: traZODone HCL 100 MG TABLET (FP) PO SCH (22:26)
[2020-08-19] MEDS: THIAMINE HCL 100 MG TABLET (FP) PO SCH (22:26)
[2020-08-19] MEDS: MELATONIN 5 MG TABLETS PO SCH (22:26)
[2020-08-20] MEDS ORDERED: chlordiazePOXIDE HCL 10 MG CAPSULE PO PRN
[2020-08-20] MEDS: chlordiazePOXIDE HCL 10 MG CAPSULE PO SCH ×4 (06:58→22:45)
[2020-08-20] MEDS: DIVALPROEX SODIUM 500 MG TABLET E.C. PO SCH ×2 (10:39→22:45)
[2020-08-20] MEDS: NICOTINE 14 MG/24 HOURS TOPICAL PATCH TD SCH (10:39)
[2020-08-20] MEDS: ASPIRIN COATED 81 MG TABLET.EC PO SCH (10:39)
[2020-08-20] MEDS: PRENATAL VITAMINS W/ FOLIC ACID TABLET (FP) PO SCH (10:40)
[2020-08-20] MEDS: FERROUS SO4 325 MG TABLET (FP) PO SCH ×2 (11:59→16:59)
[2020-08-20] MEDS: MELATONIN 5 MG TABLETS PO SCH (22:45)
[2020-08-20] MEDS: THIAMINE HCL 100 MG TABLET (FP) PO SCH (22:45)
[2020-08-20] MEDS: traZODone HCL 100 MG TABLET (FP) PO SCH (22:45)
[2020-08-21] MEDS ORDERED: chlordiazePOXIDE HCL 10 MG CAPSULE PO SCH (05:00)
[2020-08-21] MEDS: FERROUS SO4 325 MG TABLET (FP) PO SCH (08:51)
[2020-08-21 09:19] VITALS: BP 83/44; PULSE 63; TEMP 97.3
[2020-08-21] MEDS: NICOTINE 14 MG/24 HOURS TOPICAL PATCH TD SCH (10:59)
[2020-08-21] MEDS: ASPIRIN COATED 81 MG TABLET.EC PO SCH (10:59)
[2020-08-21] MEDS: DIVALPROEX SODIUM 500 MG TABLET E.C. PO SCH (10:59)
[2020-08-21] MEDS: PRENATAL VITAMINS W/ FOLIC ACID TABLET (FP) PO SCH (10:59)
[2020-08-22] MEDS ORDERED: chlordiazePOXIDE HCL 10 MG CAPSULE PO ONE (05:00)
== END 2020-08-21 11:39 | disposition home or self-care (01) | DRG 774 ==
LOC: YASAS 15:28 → Y6N 18:43
PROVIDERS: ADMIT Allergy & Immunology; ATTEND Allergy & Immunology
PROC: HZ2ZZZZ Detoxification Services for Substance Abuse Treatment (ICD-10-PCS; principal; 2020-08-17)
DX: F10.230 Alcohol dependence with withdrawal, uncomplicated (principal); F14.20 Cocaine dependence, uncomplicated; F17.213 Nicotine dependence, cigarettes, with withdrawal; F19.282 Other psychoactive substance dependence with psychoactive substance-induced sleep disorder; F19.24 Other psychoactive substance dependence with psychoactive substance-induced mood disorder; F31.9 Bipolar disorder, unspecified; A53.0 Latent syphilis, unspecified as early or late; D50.9 Iron deficiency anemia, unspecified; G43.909 Migraine, unspecified, not intractable, without status migrainosus; J44.9 Chronic obstructive pulmonary disease, unspecified; K21.9 Gastro-esophageal reflux disease without esophagitis; M17.0 Bilateral primary osteoarthritis of knee; M54.5 Low back pain; G89.29 Other chronic pain; Z86.69 Personal history of other diseases of the nervous system and sense organs; Z86.19 Personal history of other infectious and parasitic diseases; Z87.828 Personal history of other (healed) physical injury and trauma; Z86.11 Personal history of tuberculosis; Z88.0 Allergy status to penicillin
CPT/HCPCS: 36415; 80053; 80164; 81003; 85027; 86593; 86780; C9803; U0003

== ENCOUNTER 2020-12-27 17:29 | Inpatient (IN) | payer OTHER ==
[2020-12-27 18:14] VITALS: BMI 20.7
[2020-12-27] MEDS ORDERED: BISMUTH SUBSALICYLATE 524 MG/30 ML PO PRN (18:58)
[2020-12-27] MEDS ORDERED: METHOCARBAMOL 500 MG TABLET PO PRN (18:58)
[2020-12-27] MEDS ORDERED: MAGNESIUM CITRATE 300 ML BOTTLE PO PRN (18:58)
[2020-12-27] MEDS ORDERED: IBUPROFEN 400 MG TABLET (FP) PO PRN (18:58)
[2020-12-27] MEDS ORDERED: MAGNESIUM HYDROX 2400MG/30ML ORAL SUSPENSION 30 ML CUP PO PRN (18:58)
[2020-12-27] MEDS ORDERED: ONDANSETRON *ODT* 4 MG TABLET SL PRN (18:58)
[2020-12-27] MEDS ORDERED: MAG HYDROX/AL HYDROX/SIMETH 30 ML UNIT-DOSE CUP PO PRN (18:58)
[2020-12-27] MEDS ORDERED: MENTHOL/PHENOL 1 EACH UD MM PRN (18:58)
[2020-12-27] MEDS ORDERED: NICOTINE POLACRILEX 2 MG GUM BUC PRN (18:58)
[2020-12-27] MEDS ORDERED: ACETAMINOPHEN 325 MG TABLET (FP) PO PRN ×2 (18:58)
[2020-12-27] MEDS ORDERED: diazePAM 5 MG TABLET PO PRN (20:45)
[2020-12-27] MEDS ORDERED: hydrOXYzine PAMOATE 25 MG CAPSULE (FP) PO SCH (22:00)
[2020-12-27] MEDS: diazePAM 5 MG TABLET PO SCH (22:43)
[2020-12-27] MEDS: MELATONIN 5 MG TABLETS PO SCH (22:44)
[2020-12-27] MEDS: THIAMINE HCL 100 MG TABLET (FP) PO SCH (22:44)
[2020-12-28] MEDS: diazePAM 5 MG TABLET PO SCH ×4 (06:17→22:52)
[2020-12-28] MEDS: PRENATAL VITAMINS W/ FOLIC ACID TABLET (FP) PO SCH (10:18)
[2020-12-28] MEDS: NICOTINE 14 MG/24 HOURS TOPICAL PATCH TD SCH (10:18)
[2020-12-28 11:06] LABS: HEMATOCRIT 36.4 % (35.4-49); HEMOGLOBIN 11.6 GM/dL (11.7-16.9); MCH 23.1 pg (25.7-33.7); MCHC 31.9 g/dl (32.0-35.9); MEAN CELL VOLUME 72.5 fl (80-96); MEAN PLT VOLUME 9.3 fl (7.5-11.1); PLATELET COUNT 173 K/MM3 (134-434); RBC 5.02 M/mm3 (4.00-5.60); RDW 16.2 % (11.9-15.9); WHITE BLOOD COUNT 4.3 K/mm3 (4.0-10.0)
[2020-12-28 11:19] LABS: CALCIUM 8.1 mg/dL (8.5-10.1)
[2020-12-28 11:22] LABS: CREATININE 0.8 mg/dL (0.55-1.3)
[2020-12-28 11:23] LABS: BILIRUBIN,TOTAL 0.7 mg/dL (0.2-1)
[2020-12-28 11:24] LABS: TOT PROT 6.6 g/dl (6.4-8.2)
[2020-12-28] MEDS: DIVALPROEX SODIUM 500 MG TABLET E.C. PO SCH (22:46)
[2020-12-28] MEDS: MELATONIN 5 MG TABLETS PO SCH (22:46)
[2020-12-28] MEDS: THIAMINE HCL 100 MG TABLET (FP) PO SCH (22:46)
[2020-12-28] MEDS: traZODone HCL 100 MG TABLET (FP) PO SCH (22:47)
[2020-12-29] MEDS: diazePAM 5 MG TABLET PO SCH ×3 (05:26→22:18)
[2020-12-29] MEDS: PRENATAL VITAMINS W/ FOLIC ACID TABLET (FP) PO SCH (11:11)
[2020-12-29] MEDS: NICOTINE 14 MG/24 HOURS TOPICAL PATCH TD SCH (11:11)
[2020-12-29] MEDS ORDERED: IBUPROFEN 600 MG TABLET (FP) PO PRN (14:51)
[2020-12-29] MEDS: traZODone HCL 100 MG TABLET (FP) PO SCH (22:17)
[2020-12-29] MEDS: THIAMINE HCL 100 MG TABLET (FP) PO SCH (22:17)
[2020-12-29] MEDS: DIVALPROEX SODIUM 500 MG TABLET E.C. PO SCH (22:18)
[2020-12-29] MEDS: MELATONIN 5 MG TABLETS PO SCH (22:19)
[2020-12-30] MEDS ORDERED: diazePAM 5 MG TABLET PO SCH (06:00)
[2020-12-30 09:25] VITALS: BP 107/57; PULSE 71; TEMP 97.6
[2020-12-30] MEDS: NICOTINE 14 MG/24 HOURS TOPICAL PATCH TD SCH (11:16)
[2020-12-30] MEDS: PRENATAL VITAMINS W/ FOLIC ACID TABLET (FP) PO SCH (11:16)
[2020-12-31] MEDS ORDERED: diazePAM 5 MG TABLET PO ONE (06:00)
== END 2020-12-30 11:34 | disposition home or self-care (01) | DRG 774 ==
LOC: YASAS 17:29 → Y6N 20:18
PROVIDERS: ADMIT Allergy & Immunology; ATTEND Allergy & Immunology
PROC: HZ2ZZZZ Detoxification Services for Substance Abuse Treatment (ICD-10-PCS; principal; 2020-12-27)
DX: F10.230 Alcohol dependence with withdrawal, uncomplicated (principal); F14.20 Cocaine dependence, uncomplicated; F17.210 Nicotine dependence, cigarettes, uncomplicated; F31.9 Bipolar disorder, unspecified; F41.9 Anxiety disorder, unspecified; D50.9 Iron deficiency anemia, unspecified; G43.909 Migraine, unspecified, not intractable, without status migrainosus; J44.9 Chronic obstructive pulmonary disease, unspecified; K21.9 Gastro-esophageal reflux disease without esophagitis; M17.0 Bilateral primary osteoarthritis of knee; M54.5 Low back pain; G89.29 Other chronic pain; Z86.11 Personal history of tuberculosis; Z86.69 Personal history of other diseases of the nervous system and sense organs; Z87.828 Personal history of other (healed) physical injury and trauma; Z88.0 Allergy status to penicillin
CPT/HCPCS: 36415; 80053; 85027; 86593; 86780; 93005; 93010; C9803; U0003; U0005

== ENCOUNTER 2021-07-24 19:59 | Inpatient (IN) | payer OTHER ==
[2021-07-24 23:37] VITALS: BMI 20.9
[2021-07-25] MEDS ORDERED: MAGNESIUM CITRATE 300 ML BOTTLE PO PRN (01:00)
[2021-07-25] MEDS ORDERED: NICOTINE POLACRILEX 2 MG GUM BUC PRN (01:00)
[2021-07-25] MEDS ORDERED: ACETAMINOPHEN 325 MG TABLET (FP) PO PRN ×2 (01:00)
[2021-07-25] MEDS ORDERED: DICYCLOMINE HCL 10 MG CAPSULE PO PRN (01:00)
[2021-07-25] MEDS ORDERED: METHOCARBAMOL 500 MG TABLET PO PRN (01:00)
[2021-07-25] MEDS ORDERED: ONDANSETRON *ODT* 4 MG TABLET SL PRN (01:00)
[2021-07-25] MEDS ORDERED: MAGNESIUM HYDROX 2400MG/30ML ORAL SUSPENSION 30 ML CUP PO PRN (01:00)
[2021-07-25] MEDS ORDERED: BISMUTH SUBSALICYLATE 524 MG/30 ML PO PRN (01:00)
[2021-07-25] MEDS ORDERED: MAG HYDROX/AL HYDROX/SIMETH 30 ML UNIT-DOSE CUP PO PRN (01:00)
[2021-07-25] MEDS ORDERED: MENTHOL/PHENOL 1 EACH UD MM PRN (01:00)
[2021-07-25] MEDS ORDERED: P-EPHED 60MG/TRIPROLIDI 2.5MG TABLET PO PRN (01:00)
[2021-07-25] MEDS ORDERED: guaiFENesin 200 MG/10 ML 10 ML UNIT-DOSE CUPS PO PRN (01:00)
[2021-07-25] MEDS ORDERED: IBUPROFEN 400 MG TABLET (FP) PO PRN (01:00)
[2021-07-25] MEDS: hydrOXYzine PAMOATE 25 MG CAPSULE (FP) PO SCH ×5 (05:16→22:50)
[2021-07-25] MEDS ORDERED: chlordiazePOXIDE HCL 25 MG CAPSULE PO PRN (09:51)
[2021-07-25] MEDS: chlordiazePOXIDE HCL 25 MG CAPSULE PO SCH ×3 (10:21→22:50)
[2021-07-25] MEDS: PRENATAL VITAMINS W/ FOLIC ACID TABLET (FP) PO SCH (10:22)
[2021-07-25] MEDS: NICOTINE 21 MG/24 HOURS TOPICAL PATCH TD SCH (10:41)
[2021-07-25] MEDS ORDERED: DIVALPROEX SODIUM 500 MG TABLET E.C. PO SCH (22:00)
[2021-07-25] MEDS: MELATONIN 5 MG TABLETS PO SCH (22:50)
[2021-07-25] MEDS: THIAMINE HCL 100 MG TABLET (FP) PO SCH (22:50)
[2021-07-25] MEDS: traZODone HCL 50 MG TABLET (FP) PO SCH (22:50)
[2021-07-26] MEDS: DIVALPROEX SODIUM 250 MG TABLET E.C. PO SCH ×3 (00:06→22:58)
[2021-07-26] MEDS: chlordiazePOXIDE HCL 25 MG CAPSULE PO SCH ×5 (06:03→23:20)
[2021-07-26] MEDS: hydrOXYzine PAMOATE 25 MG CAPSULE (FP) PO SCH ×5 (06:13→22:58)
[2021-07-26 10:28] LABS: HEMOGLOBIN 12.3 GM/dL (11.7-16.9); MCH 22.3 pg (25.7-33.7); MEAN CELL VOLUME 74.4 fl (80-96); MEAN PLT VOLUME 9.7 fl (7.5-11.1); PLATELET COUNT 172 10^3/uL (134-434); RBC 5.51 M/mm3 (4.00-5.60); RDW 15.6 % (11.9-15.9); WHITE BLOOD COUNT 4.3 K/mm3 (4.0-10.0)
[2021-07-26 10:53] LABS: ALBUMIN 2.8 g/dl (3.4-5.0); BLOOD UREA NITROGEN 12.3 mg/dL (7-18); CALCIUM 8.4 mg/dL (8.5-10.1)
[2021-07-26 10:58] LABS: BILIRUBIN,TOTAL 0.3 mg/dL (0.2-1); TOT PROT 6.7 g/dl (6.4-8.2)
[2021-07-26] MEDS: PRENATAL VITAMINS W/ FOLIC ACID TABLET (FP) PO SCH (11:08)
[2021-07-26] MEDS: NICOTINE 21 MG/24 HOURS TOPICAL PATCH TD SCH (11:08)
[2021-07-26] MEDS: THIAMINE HCL 100 MG TABLET (FP) PO SCH (22:58)
[2021-07-26] MEDS: traZODone HCL 50 MG TABLET (FP) PO SCH (22:58)
[2021-07-26] MEDS: MELATONIN 5 MG TABLETS PO SCH (22:58)
[2021-07-27] MEDS: hydrOXYzine PAMOATE 25 MG CAPSULE (FP) PO SCH ×3 (06:48→13:58)
[2021-07-27] MEDS: chlordiazePOXIDE HCL 25 MG CAPSULE PO SCH ×2 (06:48→10:23)
[2021-07-27] MEDS: PRENATAL VITAMINS W/ FOLIC ACID TABLET (FP) PO SCH (10:23)
[2021-07-27] MEDS: DIVALPROEX SODIUM 250 MG TABLET E.C. PO SCH (10:23)
[2021-07-27] MEDS: NICOTINE 21 MG/24 HOURS TOPICAL PATCH TD SCH (10:23)
[2021-07-27 13:36] VITALS: BP 141/67; PULSE 90; TEMP 97.1
[2021-07-28] MEDS ORDERED: chlordiazePOXIDE HCL 10 MG CAPSULE PO PRN
[2021-07-28] MEDS ORDERED: chlordiazePOXIDE HCL 10 MG CAPSULE PO SCH (05:00)
[2021-07-29] MEDS ORDERED: chlordiazePOXIDE HCL 10 MG CAPSULE PO SCH (05:00)
[2021-07-30] MEDS ORDERED: chlordiazePOXIDE HCL 10 MG CAPSULE PO ONE (05:00)
== END 2021-07-27 13:10 | disposition left against medical advice (07) | DRG 770 ==
LOC: YASAS 19:59 → UNDOADMIN 07-25 04:36 → Y3N 07-25 04:36
PROVIDERS: ADMIT Allergy & Immunology; ATTEND Allergy & Immunology
PROC: HZ2ZZZZ Detoxification Services for Substance Abuse Treatment (ICD-10-PCS; principal; 2021-07-25)
DX: F10.230 Alcohol dependence with withdrawal, uncomplicated (principal); F14.20 Cocaine dependence, uncomplicated; F17.210 Nicotine dependence, cigarettes, uncomplicated; F19.282 Other psychoactive substance dependence with psychoactive substance-induced sleep disorder; F19.24 Other psychoactive substance dependence with psychoactive substance-induced mood disorder; F31.9 Bipolar disorder, unspecified; J44.9 Chronic obstructive pulmonary disease, unspecified; M17.0 Bilateral primary osteoarthritis of knee; K21.9 Gastro-esophageal reflux disease without esophagitis; R56.9 Unspecified convulsions; Z86.11 Personal history of tuberculosis; Z86.19 Personal history of other infectious and parasitic diseases; Z88.0 Allergy status to penicillin; Z91.19 Patient's noncompliance with other medical treatment and regimen
CPT/HCPCS: 36415; 71046-TC-FY; 80053; 80164; 85027; 86593; 86780; C9803; U0003; U0005

== ENCOUNTER 2021-09-07 09:15 | Inpatient (IN) | payer OTHER ==
[2021-09-07] MEDS ORDERED: BISMUTH SUBSALICYLATE 262 MG/15 ML BTL PO PRN (11:03)
[2021-09-07] MEDS ORDERED: MAGNESIUM CITRATE 300 ML BOTTLE PO PRN (11:03)
[2021-09-07] MEDS ORDERED: NICOTINE 10 MG CARTRIDGE (INHALER) IH PRN (11:03)
[2021-09-07] MEDS ORDERED: LOPERAMIDE HCL 2 MG CAPSULE PO PRN (11:03)
[2021-09-07] MEDS ORDERED: MENTHOL/PHENOL 1 EACH UD MM PRN (11:03)
[2021-09-07] MEDS ORDERED: MAG HYDROX/AL HYDROX/SIMETH 30 ML UNIT-DOSE CUP PO PRN (11:03)
[2021-09-07] MEDS ORDERED: METHOCARBAMOL 500 MG TABLET PO PRN (11:03)
[2021-09-07] MEDS ORDERED: ACETAMINOPHEN 325 MG TABLET (FP) PO PRN ×2 (11:03)
[2021-09-07] MEDS ORDERED: IBUPROFEN 400 MG TABLET (FP) PO PRN (11:03)
[2021-09-07] MEDS ORDERED: ONDANSETRON *ODT* 4 MG TABLET SL PRN (11:03)
[2021-09-07] MEDS ORDERED: MAGNESIUM HYDROX 2400MG/30ML ORAL SUSPENSION 30 ML CUP PO PRN (11:03)
[2021-09-07] MEDS ORDERED: chlordiazePOXIDE HCL 25 MG CAPSULE PO PRN (11:03)
[2021-09-07 13:04] VITALS: BMI 20.9
[2021-09-07 16:26] LABS: HEMATOCRIT 40.9 % (35.4-49); HEMOGLOBIN 12.5 GM/dL (11.7-16.9); MCH 22.5 pg (25.7-33.7); MCHC 30.5 g/dl (32.0-35.9); MEAN CELL VOLUME 73.6 fl (80-96); MEAN PLT VOLUME 9.1 fl (7.5-11.1); PLATELET COUNT 233 10^3/uL (134-434); RBC 5.55 M/mm3 (4.00-5.60); RDW 16.1 % (11.9-15.9); WHITE BLOOD COUNT 5.4 K/mm3 (4.0-10.0)
[2021-09-07 16:30] LABS: CALCIUM 8.8 mg/dL (8.5-10.1)
[2021-09-07 16:31] LABS: ALBUMIN 3.7 g/dl (3.4-5.0); BLOOD UREA NITROGEN 11.3 mg/dL (7-18)
[2021-09-07 16:36] LABS: BILIRUBIN,TOTAL 0.5 mg/dL (0.2-1); TOT PROT 7.4 g/dl (6.4-8.2)
[2021-09-07] MEDS: chlordiazePOXIDE HCL 25 MG CAPSULE PO SCH ×2 (17:14→22:40)
[2021-09-07] MEDS: HYDROCORTISONE 2.5% TOPICAL CREAM 30 GM TUBE RC SCH (17:18)
[2021-09-07] MEDS: hydrOXYzine PAMOATE 25 MG CAPSULE (FP) PO SCH ×3 (17:18→22:39)
[2021-09-07] MEDS: MELATONIN 5 MG TABLETS PO SCH (22:39)
[2021-09-07] MEDS: THIAMINE HCL 100 MG TABLET (FP) PO SCH (22:39)
[2021-09-08] MEDS: chlordiazePOXIDE HCL 25 MG CAPSULE PO SCH ×5 (06:38→22:25)
[2021-09-08] MEDS: hydrOXYzine PAMOATE 25 MG CAPSULE (FP) PO SCH ×6 (06:39→22:22)
[2021-09-08] MEDS: PRENATAL VITAMINS W/ FOLIC ACID TABLET (FP) PO SCH (10:50)
[2021-09-08] MEDS: HYDROCORTISONE 2.5% TOPICAL CREAM 30 GM TUBE RC SCH (10:50)
[2021-09-08] MEDS: ASPIRIN COATED 81 MG TABLET.EC PO SCH (15:30)
[2021-09-08] MEDS: MELATONIN 5 MG TABLETS PO SCH (22:22)
[2021-09-08] MEDS: THIAMINE HCL 100 MG TABLET (FP) PO SCH (22:22)
[2021-09-09] MEDS: chlordiazePOXIDE HCL 25 MG CAPSULE PO SCH ×4 (06:11→22:13)
[2021-09-09] MEDS: hydrOXYzine PAMOATE 25 MG CAPSULE (FP) PO SCH ×5 (06:11→22:14)
[2021-09-09] MEDS: ASPIRIN COATED 81 MG TABLET.EC PO SCH (10:34)
[2021-09-09] MEDS: PRENATAL VITAMINS W/ FOLIC ACID TABLET (FP) PO SCH (10:34)
[2021-09-09] MEDS: HYDROCORTISONE 2.5% TOPICAL CREAM 30 GM TUBE RC SCH (10:34)
[2021-09-09] MEDS: MELATONIN 5 MG TABLETS PO SCH (22:14)
[2021-09-09] MEDS: THIAMINE HCL 100 MG TABLET (FP) PO SCH (22:14)
[2021-09-09 22:53] VITALS: PULSE 66
[2021-09-10] MEDS ORDERED: chlordiazePOXIDE HCL 10 MG CAPSULE PO PRN
[2021-09-10] MEDS: chlordiazePOXIDE HCL 10 MG CAPSULE PO SCH ×2 (06:49→10:58)
[2021-09-10] MEDS: hydrOXYzine PAMOATE 25 MG CAPSULE (FP) PO SCH ×2 (06:49→09:54)
[2021-09-10 08:43] VITALS: BP 105/67; TEMP 97.3
[2021-09-10] MEDS: PRENATAL VITAMINS W/ FOLIC ACID TABLET (FP) PO SCH (09:54)
[2021-09-10] MEDS: ASPIRIN COATED 81 MG TABLET.EC PO SCH (09:54)
[2021-09-10] MEDS: HYDROCORTISONE 2.5% TOPICAL CREAM 30 GM TUBE RC SCH (09:54)
[2021-09-11] MEDS ORDERED: chlordiazePOXIDE HCL 10 MG CAPSULE PO SCH (05:00)
[2021-09-12] MEDS ORDERED: chlordiazePOXIDE HCL 10 MG CAPSULE PO ONE (05:00)
== END 2021-09-10 09:45 | disposition home or self-care (01) | DRG 774 ==
LOC: YASAS 09:15 → Y3N 15:53
PROVIDERS: ADMIT Allergy & Immunology; ATTEND Allergy & Immunology
PROC: HZ2ZZZZ Detoxification Services for Substance Abuse Treatment (ICD-10-PCS; principal; 2021-09-07)
DX: F14.23 Cocaine dependence with withdrawal (principal); F10.230 Alcohol dependence with withdrawal, uncomplicated; F17.210 Nicotine dependence, cigarettes, uncomplicated; F31.9 Bipolar disorder, unspecified; A53.0 Latent syphilis, unspecified as early or late; D50.9 Iron deficiency anemia, unspecified; J44.9 Chronic obstructive pulmonary disease, unspecified; K21.9 Gastro-esophageal reflux disease without esophagitis; M17.0 Bilateral primary osteoarthritis of knee; Z86.19 Personal history of other infectious and parasitic diseases; Z86.69 Personal history of other diseases of the nervous system and sense organs; Z88.0 Allergy status to penicillin
CPT/HCPCS: 36415; 80053; 85027; 86593; 86780; 87811; C9803; U0003; U0005

== ENCOUNTER 2021-12-14 08:33 | Inpatient (IN) | payer OTHER ==
[2021-12-14 09:09] VITALS: BMI 20.9
[2021-12-14] MEDS ORDERED: LOPERAMIDE HCL 2 MG CAPSULE PO PRN (09:48)
[2021-12-14] MEDS ORDERED: ONDANSETRON *ODT* 4 MG TABLET SL PRN (09:48)
[2021-12-14] MEDS ORDERED: NALOXONE HCL (KLOXXADO) 8 MG SPRAY NS PRN (09:48)
[2021-12-14] MEDS ORDERED: IBUPROFEN 400 MG TABLET (FP) PO PRN (09:48)
[2021-12-14] MEDS ORDERED: MAGNESIUM CITRATE 300 ML BOTTLE PO PRN (09:48)
[2021-12-14] MEDS ORDERED: DICYCLOMINE HCL 10 MG CAPSULE PO PRN (09:48)
[2021-12-14] MEDS ORDERED: NICOTINE 10 MG CARTRIDGE (INHALER) IH PRN (09:48)
[2021-12-14] MEDS ORDERED: ACETAMINOPHEN 325 MG TABLET (FP) PO PRN ×2 (09:48)
[2021-12-14] MEDS ORDERED: LORazepam 1 MG TABLET PO PRN (09:48)
[2021-12-14] MEDS ORDERED: MAGNESIUM HYDROX 2400MG/30ML ORAL SUSPENSION 30 ML CUP PO PRN (09:48)
[2021-12-14] MEDS ORDERED: BENZOCAINE/MENTHOL (CHLORASEPTIC ) LOZENGE MM PRN (09:48)
[2021-12-14] MEDS ORDERED: BISMUTH SUBSALICYLATE 524 MG/30 ML PO PRN (09:48)
[2021-12-14] MEDS ORDERED: MAG HYDROX/AL HYDROX/SIMETH 30 ML UNIT-DOSE CUP PO PRN (09:48)
[2021-12-14] MEDS ORDERED: METHOCARBAMOL 500 MG TABLET PO PRN (09:48)
[2021-12-14] MEDS: hydrOXYzine PAMOATE 25 MG CAPSULE (FP) PO SCH ×4 (11:23→22:33)
[2021-12-14] MEDS: LORazepam 2 MG TABLET PO SCH ×3 (11:23→22:33)
[2021-12-14] MEDS: PRENATAL VITAMINS W/ FOLIC ACID TABLET (FP) PO SCH (11:24)
[2021-12-14] MEDS: MELATONIN 5 MG TABLETS PO SCH (22:32)
[2021-12-14] MEDS: traZODone HCL 50 MG TABLET (FP) PO SCH (22:32)
[2021-12-14] MEDS: THIAMINE HCL 100 MG TABLET (FP) PO SCH (22:32)
[2021-12-15] MEDS: hydrOXYzine PAMOATE 25 MG CAPSULE (FP) PO SCH ×5 (07:18→22:37)
[2021-12-15] MEDS: LORazepam 2 MG TABLET PO SCH ×4 (07:18→22:38)
[2021-12-15 10:27] LABS: HEMATOCRIT 41.1 % (35.4-49); HEMOGLOBIN 12.8 GM/dL (11.7-16.9); MCH 23.1 pg (25.7-33.7); MCHC 31.1 g/dl (32.0-35.9); MEAN CELL VOLUME 74.3 fl (80-96); MEAN PLT VOLUME 10.2 fl (7.5-11.1); PLATELET COUNT 171 10^3/uL (134-434); RBC 5.54 M/mm3 (4.00-5.60); RDW 16.2 % (11.9-15.9); WHITE BLOOD COUNT 3.7 K/mm3 (4.0-10.0)
[2021-12-15] MEDS: PRENATAL VITAMINS W/ FOLIC ACID TABLET (FP) PO SCH (10:29)
[2021-12-15 10:30] LABS: ALBUMIN 3.7 g/dl (3.4-5.0); CALCIUM 9.1 mg/dL (8.5-10.1)
[2021-12-15 10:35] LABS: BILIRUBIN,TOTAL 0.5 mg/dL (0.2-1); TOT PROT 7.6 g/dl (6.4-8.2)
[2021-12-15] MEDS: traZODone HCL 50 MG TABLET (FP) PO SCH (22:38)
[2021-12-15] MEDS: THIAMINE HCL 100 MG TABLET (FP) PO SCH (22:40)
[2021-12-15] MEDS: MELATONIN 5 MG TABLETS PO SCH (22:40)
[2021-12-16] MEDS: LORazepam 1 MG TABLET PO SCH ×2 (06:15→06:43)
[2021-12-16] MEDS: hydrOXYzine PAMOATE 25 MG CAPSULE (FP) PO SCH (06:42)
[2021-12-16 08:07] VITALS: BP 96/59; PULSE 68; TEMP 97.5
[2021-12-17] MEDS ORDERED: LORazepam 0.5 MG TABLET PO PRN
[2021-12-17] MEDS ORDERED: LORazepam 0.5 MG TABLET PO SCH (05:00)
[2021-12-18] MEDS ORDERED: LORazepam 0.5 MG TABLET PO ONE (05:00)
== END 2021-12-16 09:33 | disposition left against medical advice (07) | DRG 770 ==
LOC: YASAS 08:33 → Y3N 10:38
PROVIDERS: ADMIT Allergy & Immunology; ATTEND Surgery
PROC: HZ2ZZZZ Detoxification Services for Substance Abuse Treatment (ICD-10-PCS; principal; 2021-12-14)
DX: F10.230 Alcohol dependence with withdrawal, uncomplicated (principal); F14.20 Cocaine dependence, uncomplicated; F17.210 Nicotine dependence, cigarettes, uncomplicated; F31.9 Bipolar disorder, unspecified; F19.282 Other psychoactive substance dependence with psychoactive substance-induced sleep disorder; F19.24 Other psychoactive substance dependence with psychoactive substance-induced mood disorder; K21.9 Gastro-esophageal reflux disease without esophagitis; M17.0 Bilateral primary osteoarthritis of knee; Z86.19 Personal history of other infectious and parasitic diseases; Z28.310 Unvaccinated for COVID-19
CPT/HCPCS: 36415; 80053; 85027; 86593; 86780; C9803-CS; U0003; U0005

== ENCOUNTER 2022-02-14 10:11 | Inpatient (IN) | payer OTHER ==
[2022-02-14 11:20] VITALS: BMI 20.9
[2022-02-14] MEDS ORDERED: IBUPROFEN 400 MG TABLET (FP) PO PRN (14:03)
[2022-02-14] MEDS ORDERED: MAG HYDROX/AL HYDROX/SIMETH 30 ML UNIT-DOSE CUP PO PRN (14:03)
[2022-02-14] MEDS ORDERED: METHOCARBAMOL 500 MG TABLET PO PRN (14:03)
[2022-02-14] MEDS ORDERED: ACETAMINOPHEN 325 MG TABLET (FP) PO PRN ×2 (14:03)
[2022-02-14] MEDS ORDERED: BENZOCAINE/MENTHOL (CHLORASEPTIC ) LOZENGE MM PRN (14:03)
[2022-02-14] MEDS ORDERED: MAGNESIUM HYDROX 2400MG/30ML ORAL SUSPENSION 30 ML CUP PO PRN (14:03)
[2022-02-14] MEDS ORDERED: DICYCLOMINE HCL 10 MG CAPSULE PO PRN (14:03)
[2022-02-14] MEDS ORDERED: BISMUTH SUBSALICYLATE 524 MG/30 ML PO PRN (14:03)
[2022-02-14] MEDS ORDERED: NICOTINE 10 MG CARTRIDGE (INHALER) IH PRN (14:03)
[2022-02-14] MEDS ORDERED: chlordiazePOXIDE HCL 25 MG CAPSULE PO PRN (14:03)
[2022-02-14] MEDS ORDERED: MAGNESIUM CITRATE 300 ML BOTTLE PO PRN (14:03)
[2022-02-14] MEDS ORDERED: ONDANSETRON *ODT* 4 MG TABLET SL PRN (14:03)
[2022-02-14] MEDS ORDERED: LOPERAMIDE HCL 2 MG CAPSULE PO PRN (14:03)
[2022-02-14] MEDS ORDERED: IBUPROFEN 600 MG TABLET (FP) PO PRN (14:03)
[2022-02-14] MEDS: DIVALPROEX SODIUM 500 MG TABLET E.C. PO SCH (14:48)
[2022-02-14] MEDS: ASPIRIN COATED 81 MG TABLET.EC PO SCH (14:48)
[2022-02-14] MEDS: PRENATAL VITAMINS W/ FOLIC ACID TABLET (FP) PO SCH (14:49)
[2022-02-14] MEDS: chlordiazePOXIDE HCL 25 MG CAPSULE PO SCH ×2 (18:10→23:02)
[2022-02-14] MEDS: hydrOXYzine PAMOATE 25 MG CAPSULE (FP) PO SCH ×2 (18:10→23:02)
[2022-02-14] MEDS: traZODone HCL 100 MG TABLET (FP) PO SCH (23:01)
[2022-02-14] MEDS: THIAMINE HCL 100 MG TABLET (FP) PO SCH (23:02)
[2022-02-14] MEDS: MELATONIN 5 MG TABLETS PO SCH (23:02)
[2022-02-15] MEDS: chlordiazePOXIDE HCL 25 MG CAPSULE PO SCH ×4 (07:27→22:37)
[2022-02-15] MEDS: hydrOXYzine PAMOATE 25 MG CAPSULE (FP) PO SCH ×5 (07:27→22:37)
[2022-02-15 10:29] LABS: HEMOGLOBIN 12.7 GM/dL (11.7-16.9); MCH 23.1 pg (25.7-33.7); MEAN CELL VOLUME 74.3 fl (80-96); MEAN PLT VOLUME 10.3 fl (7.5-11.1); PLATELET COUNT 146 10^3/uL (134-434); RBC 5.52 M/mm3 (4.00-5.60); RDW 14.2 % (11.9-15.9); WHITE BLOOD COUNT 4.2 K/mm3 (4.0-10.0)
[2022-02-15 10:54] LABS: ALBUMIN 3.4 g/dl (3.4-5.0)
[2022-02-15 10:55] LABS: BLOOD UREA NITROGEN 13.6 mg/dL (7-18); CALCIUM 8.9 mg/dL (8.5-10.1)
[2022-02-15 10:58] LABS: CREATININE 0.9 mg/dL (0.55-1.3)
[2022-02-15 11:00] LABS: TOT PROT 7.1 g/dl (6.4-8.2)
[2022-02-15 11:03] LABS: BILIRUBIN,TOTAL 0.2 mg/dL (0.2-1)
[2022-02-15] MEDS: PRENATAL VITAMINS W/ FOLIC ACID TABLET (FP) PO SCH (11:36)
[2022-02-15] MEDS: DIVALPROEX SODIUM 500 MG TABLET E.C. PO SCH (11:36)
[2022-02-15] MEDS: ASPIRIN COATED 81 MG TABLET.EC PO SCH (11:36)
[2022-02-15 14:51] LABS: HIV INTERPRETATION NEGATIVE (NEGATIVE)
[2022-02-15] MEDS: THIAMINE HCL 100 MG TABLET (FP) PO SCH (22:36)
[2022-02-15] MEDS: traZODone HCL 100 MG TABLET (FP) PO SCH (22:37)
[2022-02-16] MEDS: MELATONIN 5 MG TABLETS PO SCH (00:45)
[2022-02-16] MEDS: hydrOXYzine PAMOATE 25 MG CAPSULE (FP) PO SCH ×4 (06:28→21:50)
[2022-02-16] MEDS: chlordiazePOXIDE HCL 25 MG CAPSULE PO SCH ×3 (06:28→21:50)
[2022-02-16] MEDS: ASPIRIN COATED 81 MG TABLET.EC PO SCH (11:09)
[2022-02-16] MEDS: DIVALPROEX SODIUM 500 MG TABLET E.C. PO SCH (11:09)
[2022-02-16] MEDS: PRENATAL VITAMINS W/ FOLIC ACID TABLET (FP) PO SCH (11:09)
[2022-02-17] MEDS ORDERED: chlordiazePOXIDE HCL 10 MG CAPSULE PO PRN
[2022-02-17] MEDS: hydrOXYzine PAMOATE 25 MG CAPSULE (FP) PO SCH ×2 (00:45→06:16)
[2022-02-17] MEDS: chlordiazePOXIDE HCL 25 MG CAPSULE PO SCH (00:45)
[2022-02-17] MEDS: traZODone HCL 100 MG TABLET (FP) PO SCH (00:45)
[2022-02-17] MEDS: THIAMINE HCL 100 MG TABLET (FP) PO SCH (00:45)
[2022-02-17] MEDS: MELATONIN 5 MG TABLETS PO SCH (00:45)
[2022-02-17] MEDS ORDERED: chlordiazePOXIDE HCL 10 MG CAPSULE PO SCH (05:00)
[2022-02-17 09:40] VITALS: BP 120/52; PULSE 70; RESP 18; TEMP 98.1
[2022-02-18] MEDS ORDERED: chlordiazePOXIDE HCL 10 MG CAPSULE PO SCH (05:00)
[2022-02-19] MEDS ORDERED: chlordiazePOXIDE HCL 10 MG CAPSULE PO ONE (05:00)
== END 2022-02-17 09:46 | disposition left against medical advice (07) | DRG 770 ==
LOC: YASAS 10:11 → Y6N 13:49
PROVIDERS: ADMIT Allergy & Immunology; ATTEND Surgery
PROC: HZ2ZZZZ Detoxification Services for Substance Abuse Treatment (ICD-10-PCS; principal; 2022-02-14)
DX: F10.230 Alcohol dependence with withdrawal, uncomplicated (principal); F14.20 Cocaine dependence, uncomplicated; F17.210 Nicotine dependence, cigarettes, uncomplicated; F31.9 Bipolar disorder, unspecified; F19.24 Other psychoactive substance dependence with psychoactive substance-induced mood disorder; F19.282 Other psychoactive substance dependence with psychoactive substance-induced sleep disorder; J44.9 Chronic obstructive pulmonary disease, unspecified; M17.0 Bilateral primary osteoarthritis of knee; D50.9 Iron deficiency anemia, unspecified; K21.9 Gastro-esophageal reflux disease without esophagitis; Z28.310 Unvaccinated for COVID-19; Z88.0 Allergy status to penicillin; Z86.11 Personal history of tuberculosis; Z87.438 Personal history of other diseases of male genital organs; Z86.19 Personal history of other infectious and parasitic diseases; Z56.0 Unemployment, unspecified
CPT/HCPCS: 36415; 80053; 85027; 86593; 86780; 87389; 87811; C9803-CS; U0003; U0005

== ENCOUNTER 2022-09-05 13:19 | Inpatient (IN) | payer OTHER ==
[2022-09-05 14:21] VITALS: BMI 20.2
[2022-09-05] MEDS ORDERED: BENZOCAINE/MENTHOL (CHLORASEPTIC ) LOZENGE MM PRN (18:05)
[2022-09-05] MEDS ORDERED: hydrOXYzine PAMOATE 25 MG CAPSULE (FP) PO PRN (18:05)
[2022-09-05] MEDS ORDERED: BISMUTH SUBSALICYLATE 524 MG/30 ML PO PRN (18:05)
[2022-09-05] MEDS ORDERED: ONDANSETRON *ODT* 4 MG TABLET SL PRN (18:05)
[2022-09-05] MEDS ORDERED: LOPERAMIDE HCL 2 MG CAPSULE PO PRN (18:05)
[2022-09-05] MEDS ORDERED: METHOCARBAMOL 500 MG TABLET PO PRN (18:05)
[2022-09-05] MEDS ORDERED: IBUPROFEN 400 MG TABLET (FP) PO PRN (18:05)
[2022-09-05] MEDS ORDERED: NICOTINE 10 MG CARTRIDGE (INHALER) IH PRN (18:05)
[2022-09-05] MEDS ORDERED: ACETAMINOPHEN 325 MG TABLET (FP) PO PRN ×2 (18:05)
[2022-09-05] MEDS ORDERED: MAG HYDROX/AL HYDROX/SIMETH 30 ML UNIT-DOSE CUP PO PRN (18:05)
[2022-09-05] MEDS ORDERED: MAGNESIUM HYDROX 2400MG/30ML ORAL SUSPENSION 30 ML CUP PO PRN (18:05)
[2022-09-05] MEDS ORDERED: DICYCLOMINE HCL 10 MG CAPSULE PO PRN (18:05)
[2022-09-05] MEDS ORDERED: chlordiazePOXIDE HCL 25 MG CAPSULE PO PRN (18:05)
[2022-09-05] MEDS ORDERED: NALOXONE HCL (KLOXXADO) 8 MG SPRAY NS PRN (18:05)
[2022-09-05] MEDS ORDERED: IBUPROFEN 600 MG TABLET (FP) PO PRN (18:05)
[2022-09-05] MEDS ORDERED: POLYETHYLENE GLYCOL (HEALTHYLAX) 3350 17 GM PACKET PO PRN (18:05)
[2022-09-05] MEDS: chlordiazePOXIDE HCL 25 MG CAPSULE PO SCH (22:35)
[2022-09-05] MEDS: MELATONIN 5 MG TABLETS PO SCH (22:35)
[2022-09-05] MEDS: THIAMINE HCL 100 MG TABLET (FP) PO SCH (22:35)
[2022-09-06] MEDS: chlordiazePOXIDE HCL 25 MG CAPSULE PO SCH ×4 (05:36→22:47)
[2022-09-06] MEDS: PRENATAL VITAMINS W/ FOLIC ACID TABLET (FP) PO SCH (10:36)
[2022-09-06 12:14] LABS: HEMOGLOBIN 11.4 GM/dL (11.7-16.9); MCH 23.9 pg (25.7-33.7); MCHC 32.7 g/dl (32.0-35.9); MEAN PLT VOLUME 8.6 fl (7.5-11.1); PLATELET COUNT 201 10^3/uL (134-434); RBC 4.79 M/mm3 (4.00-5.60); WHITE BLOOD COUNT 4.2 K/mm3 (4.0-10.0)
[2022-09-06 12:40] LABS: CALCIUM 8.4 mg/dL (8.5-10.1)
[2022-09-06 12:44] LABS: CREATININE 0.9 mg/dL (0.55-1.3)
[2022-09-06 12:46] LABS: BILIRUBIN,TOTAL 0.3 mg/dL (0.2-1); TOT PROT 6.4 g/dl (6.4-8.2)
[2022-09-06] MEDS: QUEtiapine FUMARATE 100 MG TABLET (FP) PO SCH (22:47)
[2022-09-06] MEDS: THIAMINE HCL 100 MG TABLET (FP) PO SCH (22:47)
[2022-09-06] MEDS: MELATONIN 5 MG TABLETS PO SCH (22:47)
[2022-09-07] MEDS: chlordiazePOXIDE HCL 25 MG CAPSULE PO SCH ×4 (05:47→22:21)
[2022-09-07] MEDS: ASPIRIN COATED 81 MG TABLET.EC PO SCH (10:46)
[2022-09-07] MEDS: PRENATAL VITAMINS W/ FOLIC ACID TABLET (FP) PO SCH (10:46)
[2022-09-07] MEDS: DOXYCYCLINE HYCLATE 100 MG CAPSULE PO SCH ×2 (10:46→18:15)
[2022-09-07] MEDS: THIAMINE HCL 100 MG TABLET (FP) PO SCH (22:20)
[2022-09-07] MEDS: MELATONIN 5 MG TABLETS PO SCH (22:21)
[2022-09-07] MEDS: QUEtiapine FUMARATE 100 MG TABLET (FP) PO SCH (22:21)
[2022-09-08] MEDS ORDERED: chlordiazePOXIDE HCL 10 MG CAPSULE PO PRN
[2022-09-08] MEDS: chlordiazePOXIDE HCL 10 MG CAPSULE PO SCH ×3 (06:33→10:52)
[2022-09-08 09:39] VITALS: BP 103/63; PULSE 73; RESP 18; TEMP 97.7
[2022-09-08] MEDS: DOXYCYCLINE HYCLATE 100 MG CAPSULE PO SCH (10:51)
[2022-09-08] MEDS: ASPIRIN COATED 81 MG TABLET.EC PO SCH (10:52)
[2022-09-08] MEDS: PRENATAL VITAMINS W/ FOLIC ACID TABLET (FP) PO SCH (10:52)
[2022-09-09] MEDS ORDERED: chlordiazePOXIDE HCL 10 MG CAPSULE PO SCH (05:00)
[2022-09-10] MEDS ORDERED: chlordiazePOXIDE HCL 10 MG CAPSULE PO ONE (05:00)
== END 2022-09-08 12:05 | disposition left against medical advice (07) | DRG 770 ==
LOC: YASAS 13:19 → Y6N 19:13
PROVIDERS: ADMIT Allergy & Immunology; ATTEND Surgery
PROC: HZ2ZZZZ Detoxification Services for Substance Abuse Treatment (ICD-10-PCS; principal; 2022-09-05)
DX: F10.230 Alcohol dependence with withdrawal, uncomplicated (principal); F14.20 Cocaine dependence, uncomplicated; F13.10 Sedative, hypnotic or anxiolytic abuse, uncomplicated; F17.210 Nicotine dependence, cigarettes, uncomplicated; F19.282 Other psychoactive substance dependence with psychoactive substance-induced sleep disorder; F19.24 Other psychoactive substance dependence with psychoactive substance-induced mood disorder; F31.9 Bipolar disorder, unspecified; D50.9 Iron deficiency anemia, unspecified; J44.9 Chronic obstructive pulmonary disease, unspecified; M17.0 Bilateral primary osteoarthritis of knee; Z86.69 Personal history of other diseases of the nervous system and sense organs; Z86.19 Personal history of other infectious and parasitic diseases; Z88.0 Allergy status to penicillin
CPT/HCPCS: 36415; 71046-TC-FY; 80053; 85027; 86593; 86780; 87811; C9803-CS; U0003; U0005

== ENCOUNTER 2022-10-30 12:52 | Inpatient (IN) | payer OTHER ==
[2022-10-30 14:04] VITALS: BMI 19.8
[2022-10-30] MEDS ORDERED: MAGNESIUM HYDROX 2400MG/30ML ORAL SUSPENSION 30 ML CUP PO PRN (14:21)
[2022-10-30] MEDS ORDERED: DICYCLOMINE HCL 10 MG CAPSULE PO PRN (14:21)
[2022-10-30] MEDS ORDERED: BENZONATATE 200 MG CAPSULE PO PRN (14:21)
[2022-10-30] MEDS ORDERED: MAG HYDROX/AL HYDROX/SIMETH 30 ML UNIT-DOSE CUP PO PRN (14:21)
[2022-10-30] MEDS ORDERED: LOPERAMIDE HCL 2 MG CAPSULE PO PRN (14:21)
[2022-10-30] MEDS ORDERED: guaiFENesin 600 MG TABLET.ER (FP) PO PRN (14:21)
[2022-10-30] MEDS ORDERED: MELATONIN 5 MG TABLETS PO PRN (14:21)
[2022-10-30] MEDS ORDERED: POLYETHYLENE GLYCOL (HEALTHYLAX) 3350 17 GM PACKET PO PRN (14:21)
[2022-10-30] MEDS ORDERED: BENZOCAINE/MENTHOL (CHLORASEPTIC ) LOZENGE MM PRN (14:21)
[2022-10-30] MEDS ORDERED: NICOTINE 10 MG CARTRIDGE (INHALER) IH PRN (14:21)
[2022-10-30] MEDS ORDERED: ONDANSETRON *ODT* 4 MG TABLET SL PRN (14:21)
[2022-10-30] MEDS ORDERED: IBUPROFEN 600 MG TABLET (FP) PO PRN (14:21)
[2022-10-30] MEDS ORDERED: BISMUTH SUBSALICYLATE 262 MG/15 ML BTL PO PRN (14:21)
[2022-10-30] MEDS ORDERED: ACETAMINOPHEN 325 MG TABLET (FP) PO PRN (14:21)
[2022-10-30] MEDS ORDERED: NICOTINE POLACRILEX 2 MG GUM BUC PRN (14:21)
[2022-10-30] MEDS ORDERED: IBUPROFEN 400 MG TABLET (FP) PO PRN (14:21)
[2022-10-30] MEDS ORDERED: P-EPHED 60MG/TRIPROLIDI 2.5MG TABLET PO PRN (14:21)
[2022-10-30] MEDS: ASPIRIN COATED 81 MG TABLET.EC PO SCH (16:11)
[2022-10-30] MEDS: hydrOXYzine PAMOATE 25 MG CAPSULE (FP) PO PRN ×2 (16:11→16:13)
[2022-10-30] MEDS ORDERED: hydrOXYzine PAMOATE 25 MG CAPSULE (FP) PO ONE (16:12)
[2022-10-30] MEDS ORDERED: ASPIRIN 81 MG CHEWABLE TABLETS ONE (16:12)
[2022-10-30] MEDS: THIAMINE HCL 100 MG TABLET (FP) PO SCH (22:38)
[2022-10-30] MEDS: METHOCARBAMOL 500 MG TABLET PO PRN (22:39)
[2022-10-31] MEDS ORDERED: chlordiazePOXIDE HCL 25 MG CAPSULE PO PRN (09:29)
[2022-10-31] MEDS: METHOCARBAMOL 500 MG TABLET PO PRN (10:20)
[2022-10-31] MEDS: chlordiazePOXIDE HCL 25 MG CAPSULE PO SCH ×3 (10:20→22:37)
[2022-10-31] MEDS: ASPIRIN COATED 81 MG TABLET.EC PO SCH (10:20)
[2022-10-31] MEDS: hydrOXYzine PAMOATE 25 MG CAPSULE (FP) PO PRN (10:20)
[2022-10-31] MEDS: PRENATAL VITAMINS W/ FOLIC ACID TABLET (FP) PO SCH (10:20)
[2022-10-31 12:15] LABS: HEMATOCRIT 35.5 % (35.4-49); HEMOGLOBIN 11.5 GM/dL (11.7-16.9); MCH 23.2 pg (25.7-33.7); MCHC 32.3 g/dl (32.0-35.9); MEAN CELL VOLUME 71.9 fl (80-96); MEAN PLT VOLUME 9.6 fl (7.5-11.1); PLATELET COUNT 180 10^3/uL (134-434); RBC 4.93 M/mm3 (4.00-5.60); RDW 14.8 % (11.9-15.9); WHITE BLOOD COUNT 3.9 K/mm3 (4.0-10.0)
[2022-10-31 12:30] LABS: ALBUMIN 2.9 g/dl (3.4-5.0); BILIRUBIN,TOTAL 0.3 mg/dL (0.2-1); BLOOD UREA NITROGEN 12.8 mg/dL (7-18); CALCIUM 8.3 mg/dL (8.5-10.1); CREATININE 0.7 mg/dL (0.55-1.3)
[2022-10-31 12:31] LABS: TOT PROT 6.3 g/dl (6.4-8.2)
[2022-10-31] MEDS ORDERED: QUEtiapine FUMARATE 50 MG TABLET PO SCH (22:00)
[2022-10-31] MEDS: THIAMINE HCL 100 MG TABLET (FP) PO SCH (22:37)
[2022-11-01] MEDS: chlordiazePOXIDE HCL 25 MG CAPSULE PO SCH ×2 (05:55→10:53)
[2022-11-01 06:29] VITALS: RESP 16
[2022-11-01 08:58] VITALS: BP 92/58; PULSE 63; TEMP 98
[2022-11-01] MEDS: ASPIRIN COATED 81 MG TABLET.EC PO SCH (10:53)
[2022-11-01] MEDS: PRENATAL VITAMINS W/ FOLIC ACID TABLET (FP) PO SCH (10:53)
[2022-11-02] MEDS ORDERED: chlordiazePOXIDE HCL 25 MG CAPSULE PO SCH (05:00)
[2022-11-03] MEDS ORDERED: chlordiazePOXIDE HCL 10 MG CAPSULE PO PRN
[2022-11-03] MEDS ORDERED: chlordiazePOXIDE HCL 10 MG CAPSULE PO SCH (05:00)
[2022-11-04] MEDS ORDERED: chlordiazePOXIDE HCL 10 MG CAPSULE PO SCH (05:00)
[2022-11-05] MEDS ORDERED: chlordiazePOXIDE HCL 10 MG CAPSULE PO ONE (05:00)
== END 2022-11-01 11:30 | disposition left against medical advice (07) | DRG 770 ==
LOC: YASAS 12:52 → Y6N 14:22 → UNDOADMIN 14:48 → Y6N 14:48
PROVIDERS: ADMIT Allergy & Immunology; ATTEND Surgery
PROC: HZ2ZZZZ Detoxification Services for Substance Abuse Treatment (ICD-10-PCS; principal; 2022-10-30)
DX: F10.230 Alcohol dependence with withdrawal, uncomplicated (principal); F14.20 Cocaine dependence, uncomplicated; F12.20 Cannabis dependence, uncomplicated; F17.210 Nicotine dependence, cigarettes, uncomplicated; F19.282 Other psychoactive substance dependence with psychoactive substance-induced sleep disorder; F31.9 Bipolar disorder, unspecified; F19.24 Other psychoactive substance dependence with psychoactive substance-induced mood disorder; J44.9 Chronic obstructive pulmonary disease, unspecified; M17.0 Bilateral primary osteoarthritis of knee; Z86.11 Personal history of tuberculosis; Z86.19 Personal history of other infectious and parasitic diseases; Z28.310 Unvaccinated for COVID-19; Z28.21 Immunization not carried out because of patient refusal; Z88.0 Allergy status to penicillin
CPT/HCPCS: 36415; 80053; 85027; 86593; 86780; C9803-CS; U0003; U0005

== ENCOUNTER 2023-06-16 11:22 | Inpatient (IN) | payer OTHER ==
[2023-06-16 12:59] VITALS: BMI 20.9
[2023-06-16] MEDS ORDERED: ACETAMINOPHEN 325 MG TABLET (FP) PO PRN (15:17)
[2023-06-16] MEDS ORDERED: chlordiazePOXIDE HCL 25 MG CAPSULE PO PRN (15:17)
[2023-06-16] MEDS ORDERED: NALOXONE HCL (KLOXXADO) 8 MG SPRAY NS PRN (15:17)
[2023-06-16] MEDS ORDERED: DICYCLOMINE HCL 10 MG CAPSULE PO PRN (15:17)
[2023-06-16] MEDS ORDERED: IBUPROFEN 400 MG TABLET (FP) PO PRN (15:17)
[2023-06-16] MEDS ORDERED: POLYETHYLENE GLYCOL (HEALTHYLAX) 3350 17 GM PACKET PO PRN (15:17)
[2023-06-16] MEDS ORDERED: BENZONATATE 200 MG CAPSULE PO PRN (15:17)
[2023-06-16] MEDS ORDERED: METHOCARBAMOL 500 MG TABLET PO PRN (15:17)
[2023-06-16] MEDS ORDERED: MAG HYDROX/AL HYDROX/SIMETH 30 ML UNIT-DOSE CUP PO PRN (15:17)
[2023-06-16] MEDS ORDERED: hydrOXYzine PAMOATE 25 MG CAPSULE (FP) PO PRN (15:17)
[2023-06-16] MEDS ORDERED: BENZOCAINE/MENTHOL (CHLORASEPTIC ) LOZENGE MM PRN (15:17)
[2023-06-16] MEDS ORDERED: LOPERAMIDE HCL 2 MG CAPSULE PO PRN (15:17)
[2023-06-16] MEDS ORDERED: guaiFENesin 600 MG TABLET.ER (FP) PO PRN (15:17)
[2023-06-16] MEDS ORDERED: IBUPROFEN 600 MG TABLET (FP) PO PRN (15:17)
[2023-06-16] MEDS ORDERED: NALOXONE HCL 0.4 MG/ML VIAL IM PRN (15:17)
[2023-06-16] MEDS ORDERED: BISMUTH SUBSALICYLATE 524 MG/30 ML PO PRN (15:17)
[2023-06-16] MEDS ORDERED: ONDANSETRON *ODT* 4 MG TABLET SL PRN (15:17)
[2023-06-16] MEDS ORDERED: NICOTINE POLACRILEX 2 MG GUM BUC PRN (15:17)
[2023-06-16] MEDS ORDERED: ALBUTEROL SO4 HFA INHALER IH PRN (16:37)
[2023-06-16] MEDS ORDERED: chlordiazePOXIDE HCL 25 MG CAPSULE ONE (17:19)
[2023-06-16] MEDS: chlordiazePOXIDE HCL 25 MG CAPSULE PO SCH ×2 (17:21→22:10)
[2023-06-16] MEDS: MELATONIN 5 MG TABLETS PO SCH (22:09)
[2023-06-16] MEDS: THIAMINE HCL 100 MG TABLET (FP) PO SCH (22:10)
[2023-06-17] MEDS: chlordiazePOXIDE HCL 25 MG CAPSULE PO SCH ×4 (05:45→22:05)
[2023-06-17 10:14] LABS: HEMATOCRIT 38.8 % (35.4-49); HEMOGLOBIN 11.8 GM/dL (11.7-16.9); MCH 22.4 pg (25.7-33.7); MCHC 30.3 g/dl (32.0-35.9); MEAN CELL VOLUME 74.1 fl (80-96); MEAN PLT VOLUME 9.4 fl (7.5-11.1); PLATELET COUNT 190 10^3/uL (134-434); RBC 5.24 M/mm3 (4.00-5.60); RDW 14.4 % (11.9-15.9); WHITE BLOOD COUNT 3.9 K/mm3 (4.0-10.0)
[2023-06-17 10:24] LABS: CHLORIDE 109 mmol/L (98-107); POTASSIUM 3.8 mmol/L (3.5-5.1); SODIUM 142 mmol/L (136-145)
[2023-06-17 10:27] LABS: BLOOD UREA NITROGEN 13.2 mg/dL (7-18); CALCIUM 7.8 mg/dL (8.5-10.1)
[2023-06-17 10:28] LABS: ALBUMIN 2.7 g/dl (3.4-5.0); ANION GAP 7 mmol/L (4-13); CO2 25 mmol/L (21-32); GLUCOSE,RANDOM 98 mg/dL (74-106)
[2023-06-17 10:30] LABS: SGPT/ALT 15 U/L (13-61)
[2023-06-17 10:31] LABS: CREATININE 0.8 mg/dL (0.55-1.3); SGOT/AST 15 U/L (15-37)
[2023-06-17 10:33] LABS: ALK PHOS 56 U/L (45-117)
[2023-06-17 10:34] LABS: BILIRUBIN,TOTAL 0.4 mg/dL (0.2-1)
[2023-06-17] MEDS: ASPIRIN COATED 81 MG TABLET.EC PO SCH (10:34)
[2023-06-17] MEDS: PRENATAL VITAMINS W/ FOLIC ACID TABLET (FP) PO SCH (10:34)
[2023-06-17] MEDS: THIAMINE HCL 100 MG TABLET (FP) PO SCH (22:04)
[2023-06-17] MEDS: QUEtiapine FUMARATE 50 MG TABLET PO SCH (22:04)
[2023-06-17] MEDS: traZODone HCL 100 MG TABLET (FP) PO SCH (22:04)
[2023-06-17] MEDS: MELATONIN 5 MG TABLETS PO SCH (22:07)
[2023-06-18] MEDS: chlordiazePOXIDE HCL 25 MG CAPSULE PO SCH ×4 (05:45→22:03)
[2023-06-18] MEDS: PRENATAL VITAMINS W/ FOLIC ACID TABLET (FP) PO SCH (10:22)
[2023-06-18] MEDS: ASPIRIN COATED 81 MG TABLET.EC PO SCH (10:23)
[2023-06-18] MEDS: MAGNESIUM HYDROX 2400MG/30ML ORAL SUSPENSION 30 ML CUP PO PRN (18:50)
[2023-06-18] MEDS: traZODone HCL 100 MG TABLET (FP) PO SCH (22:03)
[2023-06-18] MEDS: QUEtiapine FUMARATE 50 MG TABLET PO SCH (22:03)
[2023-06-18] MEDS: MELATONIN 5 MG TABLETS PO SCH (22:03)
[2023-06-18] MEDS: THIAMINE HCL 100 MG TABLET (FP) PO SCH (22:03)
[2023-06-19] MEDS ORDERED: chlordiazePOXIDE HCL 10 MG CAPSULE PO PRN
[2023-06-19] MEDS: chlordiazePOXIDE HCL 10 MG CAPSULE PO SCH ×2 (05:36→10:22)
[2023-06-19] MEDS: ASPIRIN COATED 81 MG TABLET.EC PO SCH (10:21)
[2023-06-19] MEDS: PRENATAL VITAMINS W/ FOLIC ACID TABLET (FP) PO SCH (10:21)
[2023-06-19] MEDS: MAGNESIUM HYDROX 2400MG/30ML ORAL SUSPENSION 30 ML CUP PO PRN (12:23)
[2023-06-19 13:05] VITALS: RESP 16
[2023-06-19] MEDS ORDERED: DIVALPROEX NA *ER* EXTEND REL 500 MG TABLET.SA (FP) PO SCH (14:15)
[2023-06-19 17:02] VITALS: BP 94/60; PULSE 72; TEMP 98
[2023-06-20] MEDS ORDERED: chlordiazePOXIDE HCL 10 MG CAPSULE PO SCH (05:00)
[2023-06-21] MEDS ORDERED: chlordiazePOXIDE HCL 10 MG CAPSULE PO ONE (05:00)
== END 2023-06-19 18:34 | disposition left against medical advice (07) | DRG 770 ==
LOC: YASAS 11:22 → Y3N 16:44
PROVIDERS: ADMIT Allergy & Immunology; ATTEND Surgery
PROC: HZ2ZZZZ Detoxification Services for Substance Abuse Treatment (ICD-10-PCS; principal; 2023-06-16)
DX: F10.230 Alcohol dependence with withdrawal, uncomplicated (principal); F14.20 Cocaine dependence, uncomplicated; F12.20 Cannabis dependence, uncomplicated; F17.210 Nicotine dependence, cigarettes, uncomplicated; F19.282 Other psychoactive substance dependence with psychoactive substance-induced sleep disorder; F19.24 Other psychoactive substance dependence with psychoactive substance-induced mood disorder; F31.9 Bipolar disorder, unspecified; M17.0 Bilateral primary osteoarthritis of knee; Z86.11 Personal history of tuberculosis; Z86.19 Personal history of other infectious and parasitic diseases; Z28.310 Unvaccinated for COVID-19; Z28.9 Immunization not carried out for unspecified reason; Z88.0 Allergy status to penicillin
CPT/HCPCS: 36415; 80053; 80164; 80307; 85027; 86593; 86780; 87635